=== PATIENT | male | born 1955 | race Caucasian/White ===

== ENCOUNTER 2018-03-19 08:58 | Outpatient (CLI) | payer MEDICAID ==
--- NOTE | 2018-03-19 13:13 | XRAY Report ---
TWO VIEW THORACIC SPINE: 03/19/2018 CLINICAL INDICATION: Back pain. FINDINGS: Frontal and lateral views of the thoracic spine demonstrate a mild anterior wedge compression deformity of T12, which appears chronic, with approximately 30% anterior height loss. Degenerative disk disease is present. Minimal degenerative levoscoliosis is noted. No paraspinal hematoma is seen. IMPRESSION: MILD CHRONIC COMPRESSION FRACTURE OF T12. DEGENERATIVE DISK DISEASE. TD: 03/19/2018 12:39
--- NOTE | 2018-03-19 13:14 | XRAY Report ---
THREE VIEW LUMBAR SPINE: 03/19/2018 CLINICAL INDICATION: Back pain. COMPARISON: 09/06/2012. FINDINGS: AP, lateral, coned down views of the lumbar spine demonstrate progression of degenerative changes, worst at L5-S1. Chronic T12 compression fracture is stable. No new fracture is seen. IMPRESSION: PROGRESSION OF DEGENERATIVE CHANGES. NO EVIDENCE OF INTERVAL FRACTURE. TD: 03/19/2018 12:40
== END 2018-03-19 08:59 | disposition home or self-care (01) ==
LOC: DI.S 08:58
PROVIDERS: ATTEND Nurse Practitioner Family
DX: M54.5 Low back pain (principal); M51.34 Other intervertebral disc degeneration, thoracic region; M48.54XA Collapsed vertebra, not elsewhere classified, thoracic region, initial encounter for fracture
CPT/HCPCS: 72070; 72100

== ENCOUNTER 2018-08-07 09:21 | Outpatient (CLI) | payer MEDICAID ==
--- NOTE | 2018-08-07 11:27 | CARDIAC PROCEDURE NOTE ---
DATE OF SERVICE: 08/07/2018 Physician: Livia Magallanes MD, [facility] INDICATION: Arrhythmia. CARDIAC RISK FACTORS: Male gender, advanced age, alcohol intake. After signing informed consent, the patient exercised on a Paulo protocol treadmill stress test. The patient exercised for 7 minutes and 23 seconds on a Paulo protocol treadmill stress and achieved a peak heart rate of 141 (88% predicted maximal heart rate for age, 9.2 METS. The patient had minimal shortness of breath, no chest pain. RESTING EKG: Normal sinus rhythm, rare PVC, occasional PAC, left anterior fascicular block, poor R-wave progression. PEAK EKG: No ischemic ST or T wave changes. A ventricular couplet, however, was seen at peak. IMPRESSION 1. Good exercise tolerance. 2. Abnormal resting EKG. 3. No ischemic ST or T wave changes by EKG at an adequate level of stress. 4. PACs decreased with exercise, however, a ventricular couplet was seen at peak. 5. No imaging was ordered with this stress test. cc: DARLINE Nunez TD: 08/07/2018 11:13 MTDShari
== END 2018-08-07 09:22 | disposition home or self-care (01) ==
LOC: DI 09:21
PROVIDERS: ATTEND Nurse Practitioner Family
DX: I49.1 Atrial premature depolarization (principal); R94.31 Abnormal electrocardiogram [ECG] [EKG]
CPT/HCPCS: 93017

== ENCOUNTER 2018-10-01 13:18 | Outpatient (CLI) | payer MEDICAID ==
[2018-10-01 18:37] LABS: BASOPHILS % (AUTO) 0.6 %; HGB - HEMOGLOBIN 12.5 g/dL (14.0-18.0); LYMPHOCYTES # (AUTO) 1.2 10^3/uL (1.5-3.5); LYMPHOCYTES % (AUTO) 24.8 %; MEAN CORPUSCULAR HEMOGLOBIN 39.3 pg (27.0-31.0); MEAN CORPUSCULAR HGB CONC 34.3 g/dL (32.0-36.0); MEAN CORPUSCULAR VOLUME 114.7 fL (80.0-94.0); MEAN PLATELET VOLUME 8.3 fL (7.4-11.4); MONOCYTES # (AUTO) 0.6 10^3/uL (0.0-1.0); MONOCYTES % (AUTO) 13.3 %; NEUTROPHILS # (AUTO) 2.9 10^3/uL (1.5-6.6); NEUTROPHILS % (AUTO) 60.3 %; PLT - PLATELET COUNT 153 10^3/uL (130-450); RED BLOOD COUNT 3.17 10^6/uL (4.70-6.10); RED CELL DISTRIBUTION WIDTH 15.2 % (12.0-15.0); WHITE BLOOD COUNT 4.8 x10^3/uL (4.8-10.8)
[2018-10-01 18:44] LABS: ALBUMIN 3.7 g/dL (3.2-5.5); ALBUMIN/GLOBULIN RATIO 1.2 (1.0-2.2); ALKALINE PHOSPHATASE 103 IU/L (42-121); ALT ALANINE AMINOTRANSFERASE 70 IU/L (10-60); AST ASPARTATE AMINOTRANSFERASE 210 IU/L (10-42); BILIRUBIN,TOTAL 0.8 mg/dL (0.2-1.0); BUN - BLOOD UREA NITROGEN 14 mg/dL (6-20); CALCIUM 8.3 mg/dL (8.5-10.3); CARBON DIOXIDE - CO2 23 mmol/L (21-32); CHLORIDE 105 mmol/L (101-111); CHOL/HDL RATIO 1.8 (<5.0); CHOLESTEROL 129 mg/dL; CREATININE 0.8 mg/dL (0.6-1.2); GFR - MDRD 98 (>89); GLUCOSE 113 mg/dL (70-100); HDL CHOLESTEROL 72 mg/dL; LDL CHOLESTEROL,CALCULATED 25 mg/dL; LDL/HDL RATIO 0.3 (<3.6); SODIUM 138 mmol/L (135-145); TOTAL PROTEIN 6.9 g/dL (6.7-8.2); VLDL CHOLESTEROL 32 mg/dL
== END 2018-10-01 13:19 | disposition home or self-care (01) ==
LOC: LAB.F 13:18
PROVIDERS: ATTEND Nurse Practitioner Family
DX: R53.83 Other fatigue (principal); Z13.6 Encounter for screening for cardiovascular disorders; Z12.5 Encounter for screening for malignant neoplasm of prostate
CPT/HCPCS: 36415; 80050; 80061; 83721; 84153

== ENCOUNTER 2019-06-17 14:18 | Outpatient (CLI) | payer MEDICAID ==
[2019-06-17 17:55] LABS: BASOPHILS % (AUTO) 0.7 %; EOSINOPHILS % (AUTO) 0.7 %; HGB - HEMOGLOBIN 12.1 g/dL (14.0-18.0); LYMPHOCYTES # (AUTO) 2.1 10^3/uL (1.5-3.5); LYMPHOCYTES % (AUTO) 38.3 %; MEAN CORPUSCULAR HEMOGLOBIN 37.2 pg (27.0-31.0); MEAN CORPUSCULAR HGB CONC 33.5 g/dL (32.0-36.0); MEAN CORPUSCULAR VOLUME 111.1 fL (80.0-94.0); MEAN PLATELET VOLUME 10.3 fL (7.4-11.4); MONOCYTES # (AUTO) 0.7 10^3/uL (0.0-1.0); MONOCYTES % (AUTO) 12.9 %; NEUTROPHILS # (AUTO) 2.5 10^3/uL (1.5-6.6); NEUTROPHILS % (AUTO) 47.2 %; PLT - PLATELET COUNT 203 10^3/uL (130-450); RED BLOOD COUNT 3.25 10^6/uL (4.70-6.10); RED CELL DISTRIBUTION WIDTH 13.4 % (12.0-15.0); WHITE BLOOD COUNT 5.4 x10^3/uL (4.8-10.8)
[2019-06-17 18:11] LABS: HB2 TOTAL 12.4 g/dL; HEMOGLOBIN A1C 0.44 g/dL; HEMOGLOBIN A1C % 5.4 % (4.6-6.2)
[2019-06-17 18:18] LABS: PSA FREE 0.89 ng/mL (0.16-2.81)
[2019-06-17 18:19] LABS: PSA TOTAL 5.69 ng/mL (0.000-2.000)
[2019-06-17 18:29] LABS: ALBUMIN 4.1 g/dL (3.2-5.5); ALBUMIN/GLOBULIN RATIO 1.1 (1.0-2.2); ALKALINE PHOSPHATASE 65 IU/L (42-121); ALT ALANINE AMINOTRANSFERASE 32 IU/L (10-60); AST ASPARTATE AMINOTRANSFERASE 53 IU/L (10-42); BUN - BLOOD UREA NITROGEN 13 mg/dL (6-20); CALCIUM 8.9 mg/dL (8.5-10.3); CARBON DIOXIDE - CO2 23 mmol/L (21-32); CHLORIDE 103 mmol/L (101-111); CREATININE 0.8 mg/dL (0.6-1.2); GFR - MDRD 98 (>89); GLUCOSE 128 mg/dL (70-100); MAGNESIUM 2.3 mg/dL (1.7-2.8); SODIUM 135 mmol/L (135-145)
[2019-06-17 18:31] LABS: FERRITIN 475.1 ng/mL (23.9-336.2)
[2019-06-17 18:37] LABS: CRP - C-REACTIVE PROTEIN < 1.0 mg/dL (0-1.0)
[2019-06-17 18:50] LABS: PLATELET ESTIMATE, MANUAL NORMAL (130-450,000) (NORMAL); PLATELET MORPHOLOGY NORMAL APPEARANCE (NORMAL); RBC MORPHOLOGY (MULTIPLE) 2+ MACROCYTOSIS (NORMAL)
[2019-06-17 20:08] LABS: RHEUMATOID FACTOR NEGATIVE (Negative)
[2019-06-18 11:44] LABS: URIC ACID 10.5 mg/dL (2.6-7.2)
[2019-06-19 21:05] LABS: ANA SCREEN NEGATIVE (NEGATIVE)
== END 2019-06-17 14:19 | disposition home or self-care (01) ==
LOC: LAB.S 14:18
PROVIDERS: ATTEND Physician Assistant Medical
DX: R94.5 Abnormal results of liver function studies (principal); D64.9 Anemia, unspecified; R73.9 Hyperglycemia, unspecified; R25.2 Cramp and spasm; M10.9 Gout, unspecified; M13.0 Polyarthritis, unspecified; R97.20 Elevated prostate specific antigen [PSA]
CPT/HCPCS: 36415; 80053; 82607; 82728; 83036; 83735; 84153; 84154; 84550; 85025; 85651; 86038; 86140; 86430

== ENCOUNTER 2019-07-20 10:00 | Outpatient (CLI) | payer MEDICAID | END 2019-07-20 10:01 | disposition home or self-care (01) | LOC: LAB.S 10:00 | PROVIDERS: ATTEND Urology | DX: Z12.5 Encounter for screening for malignant neoplasm of prostate (principal); Z87.898 Personal history of other specified conditions | CPT/HCPCS: 36415; 84153 ==

== ENCOUNTER 2020-06-24 14:55 | Outpatient (CLI) | payer MEDICAID ==
[2020-06-24 19:55] LABS: CREATININE 0.7 mg/dL (0.6-1.2)
== END 2020-06-24 14:56 | disposition home or self-care (01) ==
LOC: LAB.S 14:55
PROVIDERS: ATTEND Urology
DX: C61 Malignant neoplasm of prostate (principal)
CPT/HCPCS: 36415; 82565; 84520

== ENCOUNTER 2020-07-01 10:32 | Outpatient (CLI) | payer MEDICAID ==
[2020-07-01 10:54] LABS: CREATININE 0.8 mg/dL (0.6-1.2)
[2020-07-01] MEDS ORDERED: IOVERSOL 320 100 ML VIAL IVP ONE (12:22)
[2020-07-01] MEDS ORDERED: IOVERSOL 320 50 ML VIAL PO ONE (12:22)
--- NOTE | 2020-07-01 13:52 | CT Report ---
PROCEDURE: CHEST W INDICATIONS: PROSTATE CA CONTRAST: IV CONTRAST: Optiray 320 ml: 100 PO CONTRAST: Optiray 320 ml50 TECHNIQUE: After the administration of intravenous contrast, 5 mm thick sections acquired from the pulmonary api jovanny to the posterior costophrenic angles. 7 mm thick coronal MIP reformats were acquired. For radia tion dose reduction, the following was used: automated exposure control, adjustment of mA and/or kV according to patient size. COMPARISON: None. FINDINGS: Image quality: Excellent. Lungs and pleura: No acute air space opacities. No pleural effusions or pneumothorax. Central and peripheral airways are patent and normal in caliber. Mediastinum: Heart size is normal. No pericardial effusion. No mediastinal or hilar adenopathy by size criteria. Thoracic aorta and central pulmonary arteries are normal in size. Distal esophageal t hickening is present. No hiatal hernia. Bones and chest wall: No suspicious bony lesions. No vertebral compression deformities are present w ithin the thoracic spine, appearing chronic. No axillary or supraclavicular adenopathy by size criter ia. Thyroid gland is. Abdomen: Hepatic steatosis is present. Punctate calcifications present within the gallbladder lumen without wall thickening. Otherwise, visualized upper abdominal solid organs appear normal. Upper abd ominal bowel loops are normal in caliber. IMPRESSION: 1. No visualized metastatic disease. Reviewed by: Zuly Cali MD on 07/01/2020 1:51 PM PDT Approved by: Zuly Cali MD on 07/01/2020 1:51 PM PDT Station ID: [id number]
--- NOTE | 2020-07-01 15:00 | CT Report ---
PROCEDURE: Abdomen/Pelvis W INDICATIONS: PROSTATE CA CONTRAST: IV CONTRAST: Optiray 320 ml: 100 PO CONTRAST: Optiray 320 ml50 TECHNIQUE: After the administration of contrast, 5 mm thick sections acquired from the diaphragms to the sym physis. 5 mm thick coronal and sagittal reformats were acquired. For radiation dose reduction, the following was used: automated exposure control, adjustment of mA and/or kV according to patient size . COMPARISON: None. FINDINGS: Image quality: Excellent. ABDOMEN: Chronic emphysematous changes. No acute consolidation or pleural effusion. The heart is normal in siz e. Solid organs: Hepatic steatosis. Spleen unremarkable.. Gallbladder otherwise unremarkable. Biliary system is non dilated. Pancreas enhances normally. No adrenal nodules. Kidneys demonstrate normal size and enhancement, without hydronephrosis. Peritoneum and bowel: Bowel loops demonstrate normal wall thickness and caliber. No free fluid or a ir. Nodes and vessels: No retroperitoneal or mesenteric adenopathy by size criteria. Aorta and inferior vena cava are normal in size. Miscellaneous: No ventral hernias. PELVIS: Genitourinary: Bladder wall thickness is normal. Miscellaneous: No inguinal hernias or adenopathy. Age-indeterminate T12 mild compression fracture. IMPRESSION: Overall, no specific evidence for distant metastatic disease. No lymphadenopathy identified Hepatic steatosis Additional chronic and incidental findings as above. Reviewed by: Abel Juarez MD on 07/01/2020 2:59 PM PDT Approved by: Abel Juarez MD on 07/01/2020 2:59 PM PDT Station ID: [id number]
--- NOTE | 2020-07-01 16:21 | Nuclear Medicine Report ---
PROCEDURE: Bone Whole Body INDICATIONS: PROSTATE CA RADIOPHARMACEUTICAL: 26.7 mCi Tc-99m MDP IV. TECHNIQUE: Delayed whole-body scintigrams were obtained approximately 3-4 hours after intravenous injection of r adiotracer. Anterior and posterior views were acquired from vertex to feet. Additional left and rig ht oblique views of the were obtained. COMPARISON: None . FINDINGS: Small, focal areas of increased radiotracer uptake noted in the left supraorbital ridge an d posterior right eighth and 11th ribs. Relatively subtle radiotracer uptake identified in the should ers bilaterally, the sternoclavicular joints bilaterally, the knees bilaterally, the ankles bilateral ly and the mid feet bilaterally. IMPRESSION: 1. Focal areas of increased radiotracer uptake in the calvarium at the left supraorbital ridge and th e right eighth and 11th ribs suspicious for osseous metastatic disease. 2. Osteoarthritis involving the shoulders, knees, ankles and mid feet. Reviewed by: Nathalie Edward MD, PhD on 07/01/2020 4:20 PM PDT Approved by: Nathalie Edward MD, PhD on 07/01/2020 4:20 PM PDT Station ID: [id number]
== END 2020-07-01 10:33 | disposition home or self-care (01) ==
LOC: LAB 10:32
PROVIDERS: ATTEND Urology
DX: C61 Malignant neoplasm of prostate (principal); K76.0 Fatty (change of) liver, not elsewhere classified; M19.012 Primary osteoarthritis, left shoulder; M19.011 Primary osteoarthritis, right shoulder; M17.0 Bilateral primary osteoarthritis of knee; M19.072 Primary osteoarthritis, left ankle and foot; M19.071 Primary osteoarthritis, right ankle and foot; R93.7 Abnormal findings on diagnostic imaging of other parts of musculoskeletal system; R93.0 Abnormal findings on diagnostic imaging of skull and head, not elsewhere classified
CPT/HCPCS: 36415; 71260; 74177; 78306; 82565; 84520; Q9967

== ENCOUNTER 2021-01-04 13:09 | Outpatient (CLI) | payer MEDICAID | END 2021-01-04 13:10 | disposition critical access hospital (66) | LOC: EMS 13:09 | PROVIDERS: ATTEND Emergency Medicine | DX: R51.9 Headache, unspecified (principal) | CPT/HCPCS: A0425; A0429; A0999 ==

== ENCOUNTER 2021-01-04 13:34 | Emergency (ER) | payer MEDICAID ==
[2021-01-04] MEDS ORDERED: SODIUM CHLORIDE 0.9% 1,000 ML IV STA (13:52)
--- NOTE | 2021-01-04 13:55 | ED Physician Documentation ---
History of Present Illness - Stated complaint Stated Complaint: LETHARGY/WEAKNESS - Chief complaint Chief Complaint: Neuro - History obtained from History obtained from: Patient, EMS - Additonal information Additional information: Patient is brought to the emergency department for chief complaint of fall while in the shower. The patient has recently been undergoing treatment for prostate cancer and states that his first day of radiation was supposed to be today. Patient states that he drinks alcohol, which he reports to be "several shots yesterday evening". Medics report that the told them that the patient had drunk a gallon of alcohol in the form of vodka over the course of last night. Patient denies drinking any alcohol this morning. Medics report that patient smelled strongly of alcohol and they got there. Patient states that his woke him up about an hour prior to arrival to get ready for his radiation appointment. The patient got in the shower when he suddenly began to feel lightheaded and lost his balance, hitting his head on his shower chair. Patient thinks he may have lost consciousness but is not sure. Patient denies any focal weakness or numbness or tingling. He states that initially, he could not get up, and it was at this point that his called EMS. Medics report the patient has had some repetitive questioning while in route, but otherwise his seem to be neurologically intact. Patient states he has some pain over his back, which she indicates to be over his lower T-spine. No other complaints at this time. Patient states he is not known to have any metastases to his spine. Review of Systems Ten Systems: 10 systems reviewed and negative Constitutional: reports: Reviewed and negative Eyes: reports: Reviewed and negative Ears: reports: Reviewed and negative Nose: reports: Reviewed and negative Throat: reports: Reviewed and negative Cardiac: reports: Reviewed and negative Respiratory: reports: Reviewed and negative GI: reports: Reviewed and negative : reports: Reviewed and negative Skin: reports: Reviewed and negative Musculoskeletal: reports: Reviewed and negative Neurologic: reports: Generalized weakness, Head injury, LOC Psychiatric: reports: Reviewed and negative Endocrine: reports: Reviewed and negative Immunocompromised: reports: Reviewed and negative PD PAST MEDICAL HISTORY - Past Medical History Cardiovascular: Hypertension Respiratory: None Endocrine/Autoimmune: None GI: None : None HEENT: None Psych: None Musculoskeletal: Gout Derm: None - Past Surgical History Ortho: Knee replacement, Other - Present Medications Home Medications: Ambulatory Orders Medication Instructions Recorded Confirmed Naproxen [Aleve] 250 mg PO 02/23/14 08/30/14 allopurinoL [Allopurinol] 1 tab DAILY 08/30/14 08/30/14 - Allergies Allergies/Adverse Reactions: Allergies Allergy/AdvReac Type Severity Reaction Status Date / Time codeine AdvReac Severe Emesis Verified 01/04/21 13:44 PD ED PE NORMAL - Vitals Vital signs reviewed: Yes - General General: Alert and oriented X 3, No acute distress, Other (Patient smells strongly of alcohol, but is alert and coherent.) - HEENT HEENT: Atraumatic, PERRL, EOMI, Moist mucous membranes - Neck Neck: Supple, no meningeal sign, No bony TTP - Cardiac Cardiac: RRR, No murmur, Strong equal pulses - Respiratory Respiratory: No respiratory distress, Clear bilaterally - Abdomen Abdomen: Soft, Non tender, Non distended - Back Back: No CVA TTP, Other (Tenderness to palpation over the approximately T9-10 area. Small abrasion noted over the same area with no swelling, step-off, or contusion.) - Derm Derm: Normal color, Warm and dry, No rash, Other (Abrasion on back, as noted above.) - Extremities Extremities: No deformity, No tenderness to palpate, Normal ROM s pain, No edema, No calf tenderness / cord - Neuro Neuro: Alert and oriented X 3, brush operator 2-12 intact, No motor deficit, No sensory deficit, Normal speech, Other (The patient occasionally repeats questions and statements, but overall, answers questions coherently and appropriately. He is not grossly ataxic.) - Psych Psych: Normal mood, Normal affect Results - Vitals Vitals: Vital Signs - 24 hr 01/04/21 13:35 Temperature 36.7 C Heart Rate 98 Respiratory 18 Rate Blood Pressure 148/82 H O2 Saturation 97 Oxygen O2 Source Room air - Labs Labs: Laboratory Tests 01/04/21 14:21 Ethyl Alcohol 262.1 - Rads (name of study) CT head Radiology: Final report received, EMP read indepedently, See rad report (nad) Thoracic spine XR Radiology: Final report received, EMP read indepedently, See rad report (Old, chronic compression fractures. Otherwise negative.) PD MEDICAL DECISION MAKING - ED course Complexity details: reviewed results, re-evaluated patient, considered differential, d/w patient ED course: The patient overall appeared fairly well in an acute sense, and had minimal complaints. He smelled strongly of alcohol, and I suspected that he had been drinking In a small amount of time before coming to the emergency department. IV had been placed by EMS, and patient was given a liter of 0.9 normal saline. He was sent for CT skin of the head and x-ray of the thoracic spine. EtOH level was checkedAnd found to be 262. CT and x-ray were both unremarkable. I felt the patient was stable for discharge home, and I did discuss with him that he will need to call his oncology office to reschedule his radiation soon as possible. We have discussed the need to cut back on alcohol intake. We have discussed the usual indications for return. Departure - Departure Disposition: 01 Home, Self Care Clinical Impression: Alcohol intoxication Qualifiers: Complication of substance-induced condition: uncomplicated Qualified Code(s): F10.920 - Alcohol use, unspecified with intoxication, uncomplicated Fall Qualifiers: Encounter type: initial encounter Qualified Code(s): W19.XXXA - Unspecified fall, initial encounter Condition: Stable Instructions: ED Alcohol Intoxication, ED Fall Dizziness Weakn Balance Comments: Your head CT and back x-ray look good. Your alcohol level was quite high at 262. We have given you IV fluids to help make sure that you are hydrated and not dizzy, and also to help flush the alcohol out of your system. Please call your oncologist's office as soon as possible to reschedule your radiation appointment.`
--- NOTE | 2021-01-04 14:21 | CT Report ---
PROCEDURE: HEAD WO INDICATIONS: Head injury TECHNIQUE: Noncontrast 4.5 mm thick angled axial sections acquired from the foramen magnum to the vertex. For r adiation dose reduction, the following was used: automated exposure control, adjustment of mA and/or kV according to patient size. COMPARISON: None. FINDINGS: Image quality: Excellent. CSF spaces: Basal cisterns are patent. No extra-axial fluid collections. Ventricles are normal in size and shape. Brain: No midline shift. No intracranial masses or hemorrhage. [place]-white matter interface is norm al. Skull and face: Calvarium and visualized facial bones are intact, without suspicious lesions. Sinuses: Visualized sinuses and mastoids are clear. IMPRESSION: No acute intracranial abnormality. Reviewed by: Marin Brohters MD on 01/04/2021 2:19 PM PDT Approved by: Marin Brothers MD on 01/04/2021 2:19 PM PDT Station ID: [id number]
--- NOTE | 2021-01-04 14:39 | XRAY Report ---
PROCEDURE: Thoracic Spine 2 View INDICATIONS: fall/pain TECHNIQUE: 3 views of the thoracic spine were acquired. COMPARISON: None. FINDINGS: Bones: No definite acute fractures or dislocations. There is mild chronic appearing wedging at mult iple levels within the mid/lower thoracic spine. Multilevel endplate osteophytes are present. No susp icious bony lesions. Visualized ribs are intact. Soft tissues: No paravertebral stripe thickening. IMPRESSION: Multilevel mild chronic appearing compression fractures within the mid/lower thoracic spine. No defin ite acute fracture. No osseous lesion. If symptoms and/or clinical suspicion for pathology continue, further assessment with repeat plain films, or advanced imaging (e.g., CT, MRI, or bone scan) is beatrice mmended for further assessment. Reviewed by: Ivette Leger MD on 01/04/2021 2:38 PM PDT Approved by: Ivette Leger MD on 01/04/2021 2:38 PM PDT Station ID: [id number]
[2021-01-04 15:01] VITALS: BP 138/90
== END 2021-01-04 15:26 | disposition home or self-care (01) ==
LOC: EDUNIT# → ED 13:34
DX: F10.920 Alcohol use, unspecified with intoxication, uncomplicated (principal); Y90.8 Blood alcohol level of 240 mg/100 ml or more; S20.419A Abrasion of unspecified back wall of thorax, initial encounter; M48.54XA Collapsed vertebra, not elsewhere classified, thoracic region, initial encounter for fracture; Y93.E1 Activity, personal bathing and showering; W18.2XXA Fall in (into) shower or empty bathtub, initial encounter; Y92.002 Bathroom of unspecified non-institutional (private) residence as the place of occurrence of the external cause; C61 Malignant neoplasm of prostate; I10 Essential (primary) hypertension
CPT/HCPCS: 36415; 80320; 96360; 99283

== ENCOUNTER 2021-02-10 20:00 | Emergency (ER) | payer MEDICAID ==
--- OUTSIDE RECORDS SUMMARY | 2021-02-10 20:03 | EXTERNAL MEDICAL SUMMARY RPT | Continuity of Care Document ---
:1955 Demographics Phone Unavailable Preferred Language Unknown Marital Status Unknown Buddhist Affiliation Unknown Race Unknown Ethnic Group Unknown Author Organization [facility] Address [address] [place] [address] Phone Social History date description facility [phone]
--- OUTSIDE RECORDS SUMMARY | 2021-02-10 20:13 | EXTERNAL MEDICAL SUMMARY RPT | Continuity of Care Document ---
:1955 Demographics Phone Unavailable Preferred Language Unknown Marital Status Unknown Yazidism Affiliation Unknown Race Unknown Ethnic Group Unknown Author Organization [facility] Address [address] [id number] Phone Social History date description facility [phone]
[2021-02-10 20:31] LABS: BASOPHILS % (AUTO) 0.6 %; EOSINOPHILS % (AUTO) 0.5 %; HCT - HEMATOCRIT 32.1 % (42.0-52.0); HGB - HEMOGLOBIN 10.9 g/dL (14.0-18.0); LYMPHOCYTES # (AUTO) 1.5 10^3/uL (1.5-3.5); LYMPHOCYTES % (AUTO) 22.8 %; MEAN CORPUSCULAR HEMOGLOBIN 38.1 pg (27.0-31.0); MEAN CORPUSCULAR VOLUME 112.2 fL (80.0-94.0); MONOCYTES # (AUTO) 0.9 10^3/uL (0.0-1.0); MONOCYTES % (AUTO) 13.8 %; NEUTROPHILS % (AUTO) 62.1 %; PLT - PLATELET COUNT 161 10^3/uL (130-450); RED BLOOD COUNT 2.86 10^6/uL (4.70-6.10); WHITE BLOOD COUNT 6.4 x10^3/uL (4.8-10.8)
[2021-02-10 20:34] LABS: INR 1.2 (0.8-1.2); PT - PROTHROMBIN TIME 12.8 secs (9.9-12.6)
[2021-02-10 20:44] LABS: ALBUMIN 3.1 g/dL (3.2-5.5); ALBUMIN/GLOBULIN RATIO 0.8 (1.0-2.2); BILIRUBIN,TOTAL 0.9 mg/dL (0.2-1.0); CALCIUM 8.2 mg/dL (8.5-10.3); CREATININE 0.6 mg/dL (0.6-1.2); MAGNESIUM 1.3 mg/dL (1.7-2.8); POTASSIUM 3.2 mmol/L (3.5-5.0); TOTAL PROTEIN 6.8 g/dL (6.7-8.2)
--- NOTE | 2021-02-10 21:05 | ED Physician Documentation ---
History of Present Illness - Stated complaint Stated Complaint: DIZZINESS - Chief complaint Chief Complaint: Neuro - History obtained from History obtained from: Patient - History of Present Illness Timing: How many weeks ago (1) Pain level now: 0 Improved by: rest Worsened by: turning head, lying down (the action of lying down) Associated symptoms: nausea, vomiting - Additonal information Additional information: c/o 1 week of dizziness with sensation of room spinning. distinctly worse with certain movements such as turning his head to either side or the action of lying down, improved with rest/lying still. When he is dizzy he sometimes has nausea and vomiting as well. He was evaluated in outpatient clinic earlier today for this but is sent to ED due to new-onset atrial fibrillation on their EKG. Patient was evaluated 01/04 in this ED after he had a fall with head injury but was discharged after tests including CT head. He denies chest pain, dyspnea, palpitations. Review of Systems Constitutional: reports: Reviewed and negative Eyes: denies: Loss of vision, Decreased vision, Photophobia Ears: denies: Loss of hearing, Ear pain, Drainage/discharge, Tinnitus/ringing Cardiac: reports: Reviewed and negative Respiratory: reports: Reviewed and negative GI: reports: Nausea (episodic, but not at this time), Vomiting (episodic, not currently experiencing n/v). denies: Abdominal Pain Musculoskeletal: reports: Neck pain (occasional pain along right trapezial ridge over past 1-2 weeks). denies: Back pain Neurologic: reports: Head injury (last month (evaluated in this ED 01/04, same day as injury)). denies: Generalized weakness, Focal weakness, Numbness, Headache PD PAST MEDICAL HISTORY - Past Medical History Past Medical History: Yes Cardiovascular: Hypertension Respiratory: None Endocrine/Autoimmune: None GI: None : None HEENT: None Psych: Anxiety Musculoskeletal: Gout Derm: None - Past Surgical History Past Surgical History: Yes Ortho: Knee replacement, Other - Present Medications Home Medications: Ambulatory Orders Medication Instructions Recorded Confirmed allopurinoL [Allopurinol] 1 tab DAILY 08/30/14 02/10/21 Meclizine [Antivert] 25 mg PO Q6H PRN #20 tablet 02/10/21 diazePAM [Valium] 5 mg PO TID PRN #15 tablet 02/10/21 - Allergies Allergies/Adverse Reactions: Allergies Allergy/AdvReac Type Severity Reaction Status Date / Time codeine AdvReac Severe Emesis Verified 01/04/21 13:44 - Social History Does the pt smoke?: No Smoking Status: Never smoker Does the pt drink ETOH?: Yes ETOH Use: Liquor Does the pt have substance abuse?: Yes Substance Use and Type: Marijuana, CBD oil / Products - Immunizations Immunizations are current?: Yes - POLST Patient has POLST: No PD ED PE NORMAL - Vitals Vital signs reviewed: Yes - General General: Alert and oriented X 3, No acute distress, Well developed/nourished - HEENT HEENT: PERRL, EOMI, Moist mucous membranes - Neck Neck: Supple, no meningeal sign, No bony TTP - Cardiac Cardiac: No murmur - Respiratory Respiratory: No respiratory distress, Clear bilaterally - Abdomen Abdomen: Soft, Non tender - Neuro Neuro: Alert and oriented X 3, monitor car operator 2-12 intact, No motor deficit, No sensory deficit, Normal speech Eye Opening: Spontaneous Motor: Obeys Commands Verbal: Oriented GCS Score: 15 PD ED PE EXPANDED - Cardiac Cardiac: Regular Rate, Abnormal Rhythm Results - Vitals Vitals: Vital Signs - 24 hr 02/10/21 02/10/21 02/10/21 20:02 20:27 22:15 Temperature 36.0 C L 36.4 C L Heart Rate 67 99 97 Respiratory 18 16 16 Rate Blood Pressure 142/81 H 139/76 H 126/69 O2 Saturation 99 100 97 Oxygen O2 Source Room air - EKG (time done) No standard instances Rate: Rate (enter#) (84) Rhythm: Atrial fibrillation [place]: LAD, Anterior hemiblock Ischemia: Normal ST segments, Q waves (inferior leads) Compare to prior EKG: Other (inferior Q waves, LAFB, LAD all noted on previous EKG) - Labs Labs: Laboratory Tests 02/10/21 02/10/21 02/10/21 20:23 20:23 20:23 WBC 6.4 RBC 2.86 L Hgb 10.9 L Hct 32.1 L MCV 112.2 H MCH 38.1 H MCHC 34.0 RDW 14.0 Plt Count 161 MPV 9.0 Neut # (Auto) 4.0 Lymph # (Auto) 1.5 [place] # (Auto) 0.9 Eos # (Auto) 0.0 Baso # (Auto) 0.0 Absolute Nucleated RBC 0.00 Nucleated RBC % 0.0 WBC Morphology NORMAL APPEARANCE Platelet Estimate NORMAL (130-450,000) Platelet Morphology NORMAL APPEARANCE RBC Morph Micro Appear 2+ MACROCYTOSIS PT 12.8 H INR 1.2 Sodium 139 Potassium 3.2 L Chloride 103 Carbon Dioxide 23 Anion Gap 13.0 BUN 8 Creatinine 0.6 Estimated GFR (MDRD) 136 Glucose 130 H Calcium 8.2 L Magnesium 1.3 L Total Bilirubin 0.9 AST 72 H ALT 34 Alkaline Phosphatase 134 H Troponin I High Sens B-Natriuretic Peptide Total Protein 6.8 Albumin 3.1 L Globulin 3.7 Albumin/Globulin Ratio 0.8 L Lipase 18 L TSH 02/10/21 02/10/21 02/10/21 20:23 20:23 20:23 WBC RBC Hgb Hct MCV MCH MCHC RDW Plt Count MPV Neut # (Auto) Lymph # (Auto) [place] # (Auto) Eos # (Auto) Baso # (Auto) Absolute Nucleated RBC Nucleated RBC % WBC Morphology Platelet Estimate Platelet Morphology RBC Morph Micro Appear PT INR Sodium Potassium Chloride Carbon Dioxide Anion Gap BUN Creatinine Estimated GFR (MDRD) Glucose Calcium Magnesium Total Bilirubin AST ALT Alkaline Phosphatase Troponin I High Sens 6.0 B-Natriuretic Peptide 280 H Total Protein Albumin Globulin Albumin/Globulin Ratio Lipase TSH 4.35 PD MEDICAL DECISION MAKING - ED course Complexity details: reviewed old records, reviewed results, re-evaluated patient, considered differential, d/w patient ED course: patient's description of symptoms strongly suggestive of peripheral, positional vertigo. He has no focal neurological complaints nor findings. The EKG faxed from the outpatient clinic (performed this evening) is similar in appearance to lazaro's ED EKG; both rhythms are interpreted by EKG algorithm as sinus tachycardia with PACs but I would interpret both EKGs as consistent with atrial fibrillation. While in ED, I note that on the monitor, he appears to more frequently be in NSR with PACs with some periods that appear to be atrial fibrillation. His blood tests lazaro are reassuring including normal high sensitivity troponin. His [id number] score is zero (triage note indicates h/o hypertension but patient denies any medical history except for gout and prostate CA; this includes when I specifically ask him if he has been diagnosed with high blood pressure/hypertension). Thus, with [id number] score of zero, anticoagulation would not be recommended even if his rhythm is atrial fibrillation. I discussed this scoring system and the recommendation against anticoagulants with patient and family (at bedside) and they agree with this approach. He is given meclizine for his vertigo with rx for same transmitted to his pharmacy; I also provided him an rx for valium to be used for vertigo that does not respond to the meclizine. He is instructed to return if worse in any way, and to follow up with his primary care provider for reevaluation next week. Departure - Departure Disposition: Home, Self Care Clinical Impression: Vertigo, Dysrhythmia Condition: Good Instructions: ED Dysrhythmia Unspecified, ED Vertigo Unspecified Follow-Up: ECHO RAMOS PA-C [Primary Care Provider] - (Contact your primary care provider Saturday to arrange for next available appointment) Prescriptions: Meclizine [Antivert] 25 mg PO Q6H PRN #20 tablet PRN Reason: Vertigo diazePAM [Valium] 5 mg PO TID PRN #15 tablet PRN Reason: Vertigo Comments: A [facility] for [facility] to [facility] in [place]. If this medication does not control your dizziness, you can then try the other prescription provided, which is diazepam (valium; this cannot be transmitted to the pharmacy and thus a paper prescription is provided to you [facility]). Discharge Date/Time: 02/10/21 22:32
[2021-02-10] MEDS ORDERED: MECLIZINE 12.5 MG TABLET PO STA (21:29)
[2021-02-10 21:31] LABS: PLATELET ESTIMATE, MANUAL NORMAL (130-450,000) (NORMAL); PLATELET MORPHOLOGY NORMAL APPEARANCE (NORMAL)
[2021-02-10 21:32] LABS: WBC MORPHOLOGY (MULTIPLE) NORMAL APPEARANCE (NORMAL)
[2021-02-10 22:16] VITALS: BP 126/69
== END 2021-02-10 22:32 | disposition home or self-care (01) ==
LOC: ED 20:00
DX: R42 Dizziness and giddiness (principal); I48.91 Unspecified atrial fibrillation; I49.1 Atrial premature depolarization; I44.7 Left bundle-branch block, unspecified; I10 Essential (primary) hypertension
CPT/HCPCS: 36415; 80053; 83690; 83735; 83880; 84443; 84484; 85025; 85610; 93005; 99284; A9270

== ENCOUNTER 2021-08-16 12:55 | Outpatient (CLI) | payer MEDICAID | END 2021-08-16 12:56 | disposition home or self-care (01) | LOC: LAB.S 12:55 | PROVIDERS: ATTEND Specialist | DX: C61 Malignant neoplasm of prostate (principal) | CPT/HCPCS: 36415; 84153 ==

== ENCOUNTER 2021-10-01 17:33 | Outpatient (CLI) | payer MEDICAID | END 2021-10-01 17:34 | disposition critical access hospital (66) | LOC: EMS 17:33 | DX: R53.1 Weakness (principal); R62.7 Adult failure to thrive | CPT/HCPCS: A0425; A0429; A0999 ==

== ENCOUNTER 2021-10-01 18:00 | Inpatient (IN) | payer MEDICAID ==
[2021-10-01] MEDS ORDERED: HYDROmorphone 1 MG/ML CARPUJECT IVP STA (18:36)
[2021-10-01 18:41] LABS: BASOPHILS % (AUTO) 0.3 %; EOSINOPHILS % (AUTO) 0.2 %; HCT - HEMATOCRIT 36.6 % (42.0-52.0); HGB - HEMOGLOBIN 12.4 g/dL (14.0-18.0); LYMPHOCYTES % (AUTO) 7.8 %; MEAN CORPUSCULAR HGB CONC 33.9 g/dL (32.0-36.0); MEAN CORPUSCULAR VOLUME 109.3 fL (80.0-94.0); MEAN PLATELET VOLUME 9.2 fL (7.4-11.4); MONOCYTES # (AUTO) 1.2 10^3/uL (0.0-1.0); MONOCYTES % (AUTO) 9.3 %; NEUTROPHILS # (AUTO) 10.9 10^3/uL (1.5-6.6); NEUTROPHILS % (AUTO) 81.9 %; PLT - PLATELET COUNT 200 10^3/uL (130-450); RED BLOOD COUNT 3.35 10^6/uL (4.70-6.10); RED CELL DISTRIBUTION WIDTH 13.4 % (12.0-15.0); WHITE BLOOD COUNT 13.3 x10^3/uL (4.8-10.8)
[2021-10-01] MEDS ORDERED: IOPAMIDOL-300 100 ML VIAL ONE (18:51)
--- NOTE | 2021-10-01 18:53 | ED Physician Documentation ---
History of Present Illness - Stated complaint Stated Complaint: WEAKNESS - Chief complaint Chief Complaint: General - History obtained from History obtained from: Patient, Other (Tried calling the , there was no answer and it did not go to voicemail, just kept ringing) - Additonal information Additional information: 65-year-old gentleman with prostate cancer presents with generalized weakness, j oint pain, both knees and the right ankle, chest and back pain after falling twice and hitting his chest and back. He also has dry mouth, shortness of breath and feeling like his heart is beating abnormally fast when he walks. Review of Systems Ten Systems: 10 systems reviewed and negative Constitutional: reports: Fatigue. denies: Fever, Chills Cardiac: reports: Chest pain / pressure. denies: Palpitations Respiratory: reports: Dyspnea. denies: Cough PD PAST MEDICAL HISTORY - Past Medical History Cardiovascular: Hypertension Respiratory: None Endocrine/Autoimmune: None GI: None : None HEENT: None Psych: Anxiety Musculoskeletal: Gout Derm: None - Past Surgical History Past Surgical History: Yes Ortho: Knee replacement, Other - Present Medications Home Medications: Ambulatory Orders Medication Instructions Recorded Confirmed allopurinoL [Allopurinol] 1 tab DAILY 08/30/14 02/10/21 Meclizine [Antivert] 25 mg PO Q6H PRN #20 tablet 02/10/21 diazePAM [Valium] 5 mg PO TID PRN #15 tablet 02/10/21 - Allergies Allergies/Adverse Reactions: Allergies Allergy/AdvReac Type Severity Reaction Status Date / Time codeine AdvReac Severe Emesis Verified 10/01/21 18:19 - Social History Does the pt smoke?: No Smoking Status: Never smoker Does the pt drink ETOH?: Yes Does the pt have substance abuse?: Yes - Immunizations Immunizations are current?: Yes - POLST Patient has POLST: No PD ED PE NORMAL - Vitals Vital signs reviewed: Yes - General General: Alert and oriented X 3, Other (He is cachectic with very dry mouth) - Neck Neck: Supple, no meningeal sign, No bony TTP - Cardiac Cardiac: RRR, No murmur - Respiratory Respiratory: No respiratory distress, Other (diminished R side) - Abdomen Abdomen: Normal bowel sounds, Soft, Non tender, Other (Slight distention) - Back Back: No CVA TTP, No spinal TTP - Derm Derm: Normal color, Warm and dry - Extremities Extremities: Other (Effusions of both knees, no redness of either knee or the right ankle.) - Neuro Neuro: Alert and oriented X 3, No motor deficit, No sensory deficit, Normal speech - Psych Psych: Normal mood, Normal affect Results - Vitals Vitals: Vital Signs - 24 hr 10/01/21 10/01/21 10/01/21 17:59 18:21 19:11 Temperature 36.7 C Heart Rate 104 H 73 108 H Respiratory 20 14 16 Rate Blood Pressure 130/80 155/64 H 138/78 H O2 Saturation 93 93 10/01/21 10/01/21 10/01/21 21:10 21:15 21:20 Temperature Heart Rate 106 H 109 H 110 H Respiratory 18 20 19 Rate Blood Pressure 140/101 H 155/87 H 157/99 H O2 Saturation 97 97 97 10/01/21 21:30 Temperature Heart Rate 111 H Respiratory 20 Rate Blood Pressure 135/90 H O2 Saturation 95 Oxygen O2 Source Room air - EKG (time done) 1913 Rate: Rate (enter#) (106) Rhythm: Sinus tachycardia [place]: Normal Intervals: Normal ID, Prolonged QT QRS: Normal Ischemia: Non specific changes - Labs Labs: Laboratory Tests 10/01/21 10/01/21 10/01/21 18:35 18:35 18:35 WBC 13.3 H RBC 3.35 L Hgb 12.4 L Hct 36.6 L MCV 109.3 H MCH 37.0 H MCHC 33.9 RDW 13.4 Plt Count 200 MPV 9.2 Neut # (Auto) 10.9 H Lymph # (Auto) 1.0 L [place] # (Auto) 1.2 H Eos # (Auto) 0.0 Baso # (Auto) 0.0 Absolute Nucleated RBC 0.00 Nucleated RBC % 0.0 ESR 59 H PT INR Sodium 133 L Potassium 2.8 L Chloride 93 L Carbon Dioxide 29 Anion Gap 11.0 BUN 8 Creatinine 0.7 Estimated GFR (MDRD) 114 Glucose 132 H Calcium 8.3 L Magnesium Total Bilirubin 2.5 H AST 30 ALT < 10 L Alkaline Phosphatase 128 H Lactate Dehydrogenase Troponin I High Sens C-Reactive Protein 8.6 H Total Protein 7.6 Albumin 2.3 L Globulin 5.3 H Albumin/Globulin Ratio 0.4 L Lipase 16 L Fluid Source Fluid Color Fluid Clarity Fluid WBC Fluid RBC Nasal Adenovirus (PCR) Nasal B. parapertussis DNA (PCR) Nasal Coronavir 229E PCR Nasal Coronavir HKU1 PCR Nasal Coronavir NL63 PCR Nasal Coronavir OC43 PCR Nasal Enterovir/Rhinovir PCR Nasal Influenza B PCR Nasal Influenza A PCR Nasal Parainfluen 1 PCR Nasal Parainfluen 2 PCR Nasal Parainfluen 3 PCR Nasal Parainfluen 4 PCR Nasal RSV (PCR) Nasal B.pertussis DNA PCR Nasal C.pneumoniae (PCR) Caesar Human Metapneumo PCR Nasal M.pneumoniae (PCR) Nasal SARS-CoV-2 (PCR) Ethyl Alcohol 10/01/21 10/01/21 10/01/21 18:35 18:35 18:35 WBC RBC Hgb Hct MCV MCH MCHC RDW Plt Count MPV Neut # (Auto) Lymph # (Auto) [place] # (Auto) Eos # (Auto) Baso # (Auto) Absolute Nucleated RBC Nucleated RBC % ESR PT INR Sodium Potassium Chloride Carbon Dioxide Anion Gap BUN Creatinine Estimated GFR (MDRD) Glucose Calcium Magnesium 1.7 Total Bilirubin AST ALT Alkaline Phosphatase Lactate Dehydrogenase Troponin I High Sens 12.6 C-Reactive Protein Total Protein Albumin Globulin Albumin/Globulin Ratio Lipase Fluid Source Fluid Color Fluid Clarity Fluid WBC Fluid RBC Nasal Adenovirus (PCR) Nasal B. parapertussis DNA (PCR) Nasal Coronavir 229E PCR Nasal Coronavir HKU1 PCR Nasal Coronavir NL63 PCR Nasal Coronavir OC43 PCR Nasal Enterovir/Rhinovir PCR Nasal Influenza B PCR Nasal Influenza A PCR Nasal Parainfluen 1 PCR Nasal Parainfluen 2 PCR Nasal Parainfluen 3 PCR Nasal Parainfluen 4 PCR Nasal RSV (PCR) Nasal B.pertussis DNA PCR Nasal C.pneumoniae (PCR) Caesar Human Metapneumo PCR Nasal M.pneumoniae (PCR) Nasal SARS-CoV-2 (PCR) Ethyl Alcohol < 5.0 10/01/21 10/01/21 10/01/21 18:35 20:18 20:43 WBC RBC Hgb Hct MCV MCH MCHC RDW Plt Count MPV Neut # (Auto) Lymph # (Auto) [place] # (Auto) Eos # (Auto) Baso # (Auto) Absolute Nucleated RBC Nucleated RBC % ESR PT 16.3 H INR 1.5 H Sodium Potassium Chloride Carbon Dioxide Anion Gap BUN Creatinine Estimated GFR (MDRD) Glucose Calcium Magnesium Total Bilirubin AST ALT Alkaline Phosphatase Lactate Dehydrogenase 118 Troponin I High Sens C-Reactive Protein Total Protein Albumin Globulin Albumin/Globulin Ratio Lipase Fluid Source Fluid Color Fluid Clarity Fluid WBC Fluid RBC Nasal Adenovirus (PCR) NOT DETECTED Nasal B. parapertussis DNA (PCR) NOT DETECTED Nasal Coronavir 229E PCR NOT DETECTED Nasal Coronavir HKU1 PCR NOT DETECTED Nasal Coronavir NL63 PCR NOT DETECTED Nasal Coronavir OC43 PCR NOT DETECTED Nasal Enterovir/Rhinovir PCR NOT DETECTED Nasal Influenza B PCR NOT DETECTED Nasal Influenza A PCR NOT DETECTED Nasal Parainfluen 1 PCR NOT DETECTED Nasal Parainfluen 2 PCR NOT DETECTED Nasal Parainfluen 3 PCR NOT DETECTED Nasal Parainfluen 4 PCR NOT DETECTED Nasal RSV (PCR) NOT DETECTED Nasal B.pertussis DNA PCR NOT DETECTED Nasal C.pneumoniae (PCR) NOT DETECTED Caesar Human Metapneumo PCR NOT DETECTED Nasal M.pneumoniae (PCR) NOT DETECTED Nasal SARS-CoV-2 (PCR) NOT DETECTED Ethyl Alcohol 10/01/21 21:20 WBC RBC Hgb Hct MCV MCH MCHC RDW Plt Count MPV Neut # (Auto) Lymph # (Auto) [place] # (Auto) Eos # (Auto) Baso # (Auto) Absolute Nucleated RBC Nucleated RBC % ESR PT INR Sodium Potassium Chloride Carbon Dioxide Anion Gap BUN Creatinine Estimated GFR (MDRD) Glucose Calcium Magnesium Total Bilirubin AST ALT Alkaline Phosphatase Lactate Dehydrogenase Troponin I High Sens C-Reactive Protein Total Protein Albumin Globulin Albumin/Globulin Ratio Lipase Fluid Source PLEURAL Fluid Color YELLOW Fluid Clarity HAZY Fluid WBC 282 Fluid RBC 2000 Nasal Adenovirus (PCR) Nasal B. parapertussis DNA (PCR) Nasal Coronavir 229E PCR Nasal Coronavir HKU1 PCR Nasal Coronavir NL63 PCR Nasal Coronavir OC43 PCR Nasal Enterovir/Rhinovir PCR Nasal Influenza B PCR Nasal Influenza A PCR Nasal Parainfluen 1 PCR Nasal Parainfluen 2 PCR Nasal Parainfluen 3 PCR Nasal Parainfluen 4 PCR Nasal RSV (PCR) Nasal B.pertussis DNA PCR Nasal C.pneumoniae (PCR) Caesar Human Metapneumo PCR Nasal M.pneumoniae (PCR) Nasal SARS-CoV-2 (PCR) Ethyl Alcohol - Rads (name of study) X-rays of both knees and the right ankle are normal Radiology: EMP read contemporaneously Procedures - Chest Tube (location) right 4th middle axillary line Chest tube preparation: Consent obtained, Time out completed, Sterile prep and drape Chest tube location: Right, Mid axillary line Chest tube anesthesia: Lidocaine (10ml) Chest tube size: 30 Chest tube return: Other (4L fluid mostly clear yellow. Not pus) Chest tube after care: Sutured, Confirmed with xray, Pt tolerated well - Procedural sedation Sedation prep: Informed consent, ASA 2 - mild disease Sedation Medications: ketamine (100mg ivp) Mallampati classification: I Patient status during sedation: Responds to verbal Sedation recovery: Recovered uneventfully Time in sedation (Minutes): 15 PD MEDICAL DECISION MAKING - ED course ED course: Initially unable to get a hold of but we did talk, best phone is [phone]. 65-year-old gentleman presents with multiple complaints including polyarthralgia mostly the knees and the right ankle. No signs of infection there. He appears chronically ill and cachectic and has a history of prostate cancer. He hit his chest and was short of breath and was noted on CT angiography to have a massive right pleural effusion with potentially some mediastinal shift as well. Chest tube was placed and greater than 4 L of output was obtained which was sent to the lab for pH, glucose, LDH, culture, cell count, creatinine, and cytology. The fluid was for the most part clear though, definitely not an empyema. As such Dr. Kaufmansef will admit. And I also consulted Dr. Bhatt for chest tube management. Departure - Departure Disposition: 66 [facility] DC/Xfer Clinical Impression: Weakness, Pleural effusion, Knee pain, left, Knee pain, right anterior, Ankle pain, right, Prostate cancer Condition: Serious
[2021-10-01 19:09] LABS: ALBUMIN 2.3 g/dL (3.2-5.5); ALBUMIN/GLOBULIN RATIO 0.4 (1.0-2.2); ALKALINE PHOSPHATASE 128 IU/L (42-121); ALT ALANINE AMINOTRANSFERASE < 10 IU/L (10-60); AST ASPARTATE AMINOTRANSFERASE 30 IU/L (10-42); BILIRUBIN,TOTAL 2.5 mg/dL (0.2-1.0); BUN - BLOOD UREA NITROGEN 8 mg/dL (6-20); CALCIUM 8.3 mg/dL (8.5-10.3); CARBON DIOXIDE - CO2 29 mmol/L (21-32); CHLORIDE 93 mmol/L (101-111); CREATININE 0.7 mg/dL (0.6-1.2); CRP - C-REACTIVE PROTEIN 8.6 mg/dL (0-1.0); GFR - MDRD 114 (>89); GLUCOSE 132 mg/dL (70-100); LIPASE 16 U/L (22-51); POTASSIUM 2.8 mmol/L (3.5-5.0); SODIUM 133 mmol/L (135-145); TOTAL PROTEIN 7.6 g/dL (6.7-8.2)
[2021-10-01] MEDS ORDERED: POTASSIUM CHLOR 10 MEQ/100 ML 10 MEQ/100 ML BAG IV ONE (19:11)
--- NOTE | 2021-10-01 19:30 | XRAY Report ---
PROCEDURE: Ankle 3 View RT INDICATIONS: Trauma TECHNIQUE: 3 views of the ankle were acquired. COMPARISON: None FINDINGS: No fracture or dislocation. No ankle joint effusion. Regional soft tissues demonstrate no acute findi ng. IMPRESSION: No acute finding. Reviewed by: Marin Brothers MD on 10/01/2021 7:29 PM PST Approved by: Marin Brothers MD on 10/01/2021 7:29 PM PST Station ID: [id number]
--- NOTE | 2021-10-01 19:31 | XRAY Report ---
PROCEDURE: Knee 3 View BILAT INDICATIONS: Bilateral knee pain TECHNIQUE: 3 views of the bilateral knees. COMPARISON: None. FINDINGS: Bones: No fractures or dislocations. No suspicious bony lesions. Soft tissues: No joint effusion. No suspicious soft tissue calcifications. IMPRESSION: No acute finding. Reviewed by: Marin Brothers MD on 10/01/2021 7:29 PM PST Approved by: Marin Brothers MD on 10/01/2021 7:29 PM PST Station ID: [id number]
[2021-10-01] MEDS ORDERED: IOPAMIDOL-300 100 ML VIAL IVP ONE (19:58)
--- NOTE | 2021-10-01 20:35 | CT Report ---
PROCEDURE: ANGIO CHEST W/WO INDICATIONS: Chest pain, dyspnea, active CA, PE protocol CONTRAST: IV CONTRAST: Isovue 300 ml: 60 PO CONTRAST: *NO PO CONTRAST TECHNIQUE: After the administration of intravenous contrast, 2 mm axial images were acquired from the pulmonary apices to the posterior costophrenic angles during the arterial phase. In addition, 1 mm lung kernel and 5 mm soft tissue kernel reconstructions were performed. 3-dimensional coronal oblique maximum int ensity projection (MIP) reformats, 8 mm axial MIP, and 5 mm coronal and sagittal MPR reformats were t hen performed through the thorax. For radiation dose reduction, the following was used: automated exp osure control, adjustment of mA and/or kV according to patient size. COMPARISON: 07/[address] chest. FINDINGS: Image quality: Excellent. Pulmonary arteries: The pulmonary arteries are very suboptimally opacified. Attenuation of the main p ulmonary trunk is only 90 Hounsfield units. This is inadequate to exclude even a central or proximal pulmonary filling defect. Lungs and pleura: Large right pleural effusion. Compressive atelectasis of most of the right lung. Th e right middle lobe is not entirely collapsed and the aerated portion contains some groundglass and c onsolidative opacity suspicious for infection. The left lung and pleural space are clear. Mediastinum: Normal heart size. No pericardial effusion. No threshold enlarged mediastinal or hilar l ymph node. Bones and chest wall: Thoracic vertebral body heights maintained. No suspicious lytic or blastic osse ous lesion. IMPRESSION: Nondiagnostic exam for pulmonary embolism. Large right pleural effusion with resulting compressive atelectasis involving most of the right lung. Groundglass opacity and consolidation in the right middle lobe, likely infectious. Reviewed by: Marin Brothers MD on 10/01/2021 8:34 PM PST Approved by: Marin Brothers MD on 10/01/2021 8:34 PM PST Station ID: [id number]
[2021-10-01] MEDS ORDERED: cefTRIAXone 2 GM in SODIUM CHLORIDE 0.9% MINIBAG 100 ML IV STA (20:51)
[2021-10-01] MEDS ORDERED: KETAMINE 500 MG/10 ML VIAL IVP STA (20:51)
[2021-10-01] MEDS ORDERED: metroNIDAZOLE 500 MG/100 ML 500 MG/100 ML BAG IV ONE (20:51)
[2021-10-01 20:59] LABS: INR 1.5 (0.8-1.2); PT - PROTHROMBIN TIME 16.3 secs (9.9-12.6)
[2021-10-01] MEDS ORDERED: cefTRIAXone 2 GM VIAL ONE (21:00)
[2021-10-01] MEDS ORDERED: LIDOCAINE 1%-EPI 1:100000 20 ML MDV SUBQ STA (21:00)
[2021-10-01 21:16] LABS: B. PARAPERTUSSIS- RESP PCR PAN NOT DETECTED; B. PERTUSSIS- RESP PCR PANEL NOT DETECTED; C. PNEUMONIAE- RESP PCR PANEL NOT DETECTED; CORONAVIRUS 229E-RESP PCR NOT DETECTED; CORONAVIRUS HKU1-RESP PCR NOT DETECTED; CORONAVIRUS NL63-RESP PCR NOT DETECTED; CORONAVIRUS OC43-RESP PCR NOT DETECTED; HUMAN METAPNEUMOVIRUS NOT DETECTED; INFLUENZA A- RESP PCR PANEL NOT DETECTED; INFLUENZA B - RESP PCR PANEL NOT DETECTED; M. PNEUMONIAE- RESP PCR PANEL NOT DETECTED; PARAINFLUENZA VIRUS 1 NOT DETECTED; PARAINFLUENZA VIRUS 2 NOT DETECTED; PARAINFLUENZA VIRUS 3 NOT DETECTED; PARAINFLUENZA VIRUS 4 NOT DETECTED; RHINOVIRUS/ENTEROVIRUS NOT DETECTED; RSV- RESP PCR PANEL NOT DETECTED; SARS-CoV-2 -RESP PCR PANEL NOT DETECTED
[2021-10-01] MEDS ORDERED: ONDANSETRON ODT 4 MG TABLET TL PRN (21:34)
[2021-10-01] MEDS ORDERED: ONDANSETRON 4 MG/2 ML VIAL IVP PRN (21:34)
[2021-10-01] MEDS ORDERED: POTASSIUM CHLORIDE 20 MEQ TABLET PO STA (21:36)
--- NOTE | 2021-10-01 21:42 | HISTORY & PHYSICAL EXAMINATION ---
Chief Complaint - Chief Complaint Chief Complaint: Weakness History of Present Illness - Admitted From Admitted From:: Home - History Obtained From Records Reviewed: Yes History obtained from: Patient, ER Physician, EMR - History of Present Illness HPI Comment/Other: This is a 65-year-old male with a past medical history significant for prostate cancer and gout who presents today complaining of weakness and back pain. Most of the history is obtained from the emergency department physician as the patient is quite somnolent upon my evaluation as he received ketamine and Dilaudid for chest tube placement. The patient tells me he came in with left- sided back pain that has been going on for most of his life. When asked as to why he came in today for the back pain, he could not answer. He states he has felt weak and has had a poor appetite as well as weight loss. He cannot tell me for how long this has been going on for. He denies any fevers, chills, chest pain, dyspnea. He does have a nonproductive cough. Reports no abdominal pain, nausea, vomiting, diarrhea, dysuria, urgency. He states his prostate cancer is in remission and that it was treated with radiation. In the emergency department, he was noted to be tachycardic with a heart rate in the 110s. He was afebrile and normotensive. Imaging revealed a large right- sided pleural effusion and he underwent a CT angiogram of the chest which was suboptimal for pulmonary embolism but did reveal the right-sided pleural effusion with associated consolidation. His labs were significant for white count of 13,000. Chest tube was placed in the emergency department with nearly 4 L of pleural fluid drained. This was sent for pleural fluid studies. Given the concern for parapneumonic effusion, medicine was consulted for admission. The patient was too somnolent to discuss goals of care. History - Past Medical History Cardiovascular: reports: Hypertension Respiratory: reports: None Endocrine/Autoimmune: reports: None GI: reports: None : reports: None, Other (Prostate cancer) HEENT: reports: None Psych: reports: Anxiety Musculoskeletal: reports: Gout Derm: reports: None MRSA Hx?: No - Past Surgical History Ortho: reports: Knee replacement - Family & Social History Family History: Mother: , Father: Family History Comment/Other: He reports his mother from pancreatic cancer and his father from lung cancer. He was a smoker. Living arrangement: At home Living Situation: With family Social History Notes: He lives at home with his , Jelena. He is a non- smoker and rarely drinks alcohol. - POLST Patient has POLST: No Meds/Allgy - Home Medications Home Medications: Ambulatory Orders Medication Instructions Recorded Confirmed allopurinoL [Allopurinol] 100 mg PO DAILY PRN 08/30/14 10/02/21 Ibuprofen [Motrin] 800 mg PO DAILY 10/02/21 10/02/21 LORazepam [Ativan] 0.5 mg PO DAILY PRN 10/02/21 10/02/21 Potassium Chloride [Klor-Con M20] 20 meq PO DAILY 10/02/21 10/02/21 - Allergies Allergies/Adverse Reactions: Allergies Allergy/AdvReac Type Severity Reaction Status Date / Time codeine AdvReac Severe Emesis Verified 10/01/21 18:19 Review of Systems - Constitutional Constitutional: reports: Weakness, Poor appetite, Weight loss. denies: Fever, Chills - Cardiovascular Cariovascular: denies: Chest pain, Lightheadedness, Syncope - Respiratory Respiratory: reports: Cough. denies: SOB at rest, SOB with exertion - Gastrointestinal Gastrointestinal: reports: Poor appetite. denies: Abdominal pain, Diarrhea, Nausea, Vomiting - Genitourinary Genitourinary: denies: Dysuria, Frequency, Hematuria, Incontinence - Musculoskeletal Musculoskeletal: reports: Back pain - Neurological Neurological: reports: General weakness. denies: Focal weakness - All Other Systems All Other Systems: reports: Other Exam - Vital Signs Reviewed Vital Signs: Yes Vital Signs: Vital Signs x48h Temp Pulse Resp BP Pulse Ox 10/01/21 21:10 106 H 18 140/101 H 97 10/01/21 19:11 108 H 16 138/78 H 93 10/01/21 18:21 73 14 155/64 H 10/01/21 17:59 36.7 C 104 H 20 130/80 93 - Physical Exam General Appearance: positive: Other (Appears frail and older than stated age.) Eyes Bilateral: positive: Conjunctivae nml ENT: positive: ENT inspection nml Neck: positive: Nml inspection Respiratory: positive: Chest non-tender, No respiratory distress, Other (Diminished in right lung field.). negative: Wheezes, Rales Cardiovascular: positive: Tachycardia, Other (Right chest tube in place.). negative: Irregularly irregular, Systolic murmur Abdomen: positive: Non-tender, No distention. negative: Tenderness Skin: positive: Warm, Dry Extremities: positive: No pedal edema Neurologic/Psychiatric: positive: Other (No focal deficits). negative: Disoriented to person, Disoriented to place, Disoriented to time Conclusion/Plan - Problem List (1) Parapneumonic effusion Conclusion/Plan: CT revealed a large right pleural effusion with associated consolidation and the concern is for parapneumonic effusion. A chest tube was placed in the emergency department and there was no obvious pus or blood suggest an empyema or hemothorax. His white count is elevated as well as his CRP. Fortunately, he is not hypoxic. We will start him empirically on ceftriaxone and Flagyl IV. I did asked the emergency department physician to send for pH, LDH, glucose, cell count, cultures, and creatinine from the pleural fluid. The concern is that this is potentially a malignant effusion and we have asked for cytology as well. We will consult general surgery in the morning to help assist with the chest tube management. We will follow up the post chest tube chest x-ray. (2) Prostate cancer Conclusion/Plan: He tells me this is in remission and that it was treated with radiation. Most recent PSA in July 2021 was not detectable. He could not tell me who his oncologist was. Given concern for potential malignant effusion, we will check a PSA. (3) Hypokalemia Conclusion/Plan: Likely secondary to poor oral intake. We will replace this orally and recheck. - Lab Results Lab results reviewed: Yes Fish Bones: 10/02/21 04:45 10/02/21 04:45 - Diagnostic Imaging Results Diagnostic Imaging Results: positive: Final report reviewed Core Measures - Anticipated LOS I expect patient to be DC'd or transferred within 96 hours.: Yes - Issues Hospital Issues and Management Plan: 65-year-old male with history of prostate cancer presents due to weakness found to have a large right pleural effusion with concerns for parapneumonic effusion. Chest tube has been placed and we will start him empirically on IV antibiotics and follow-up pleural fluid studies. - DVT/VTE - Prophylaxis VTE/DVT Device ordered at admit?: Yes VTE/DVT Prophylaxis med ordered at admit?: No
[2021-10-01 21:53] LABS: CC,BF RBC 2000 /mm^3; CC,BF WBC 282 /mm^3
[2021-10-01 21:54] LABS: BF CLARITY HAZY; BF COLOR YELLOW; BF SOURCE PLEURAL
--- NOTE | 2021-10-01 22:37 | XRAY Report ---
PROCEDURE: Chest for Line Placement INDICATIONS: post chest tube TECHNIQUE: One view of the chest was acquired. COMPARISON: CT pulmonary angiogram earlier today. CT chest 07/01/2020. FINDINGS: Surgical changes and devices: Sided chest tube with the tip at the medial upper thorax. Lungs and pleura: Substantial interval decrease in the right-sided pleural effusion now appears small . No significant effusion on the left. Opacity the at the right lung base has the appearance of atele ctasis. No pneumothorax seen. Mediastinum: Mediastinal contours are within normal limits. Heart size is normal. Bones and chest wall: No suspicious bony lesions. Mild right subcutaneous emphysema. Shoulder anchor s. IMPRESSION: Right-sided chest tube the tip at the medial upper thorax. Substantial interval decrease in the right pleural effusion, now small. Reviewed by: Ke Ley MD on 10/01/2021 10:36 PM PST Approved by: Ke Ley MD on 10/01/2021 10:36 PM PST Station ID: [id number]
[2021-10-01] MEDS: LACTATED RINGERS 1,000 ML IV SCH (22:51)
[2021-10-01 23:31] LABS: LYMPHOCYTES %,BODY FLUID 20 %; MACROPHAGES %,BODY FLUID 38 %; MESOTHELIAL %, BF 7 %; MONOCYTES %,BODY FLUID 35 %
[2021-10-02] MEDS: SODIUM CHLORIDE FLUSH 0.9% 10 ML SYRINGE IVP SCH ×3 (00:40→16:37)
[2021-10-02] MEDS: ACETAMINOPHEN 325 MG TABLET PO PRN ×2 (02:45→08:30)
[2021-10-02] MEDS: metroNIDAZOLE 500 MG/100 ML 500 MG/100 ML BAG IV SCH ×3 (05:13→20:14)
[2021-10-02 05:59] LABS: BASOPHILS % (AUTO) 0.3 %; EOSINOPHILS % (AUTO) 0.3 %; HCT - HEMATOCRIT 31.7 % (42.0-52.0); HGB - HEMOGLOBIN 11.1 g/dL (14.0-18.0); MEAN CORPUSCULAR VOLUME 108.6 fL (80.0-94.0); MEAN PLATELET VOLUME 10.2 fL (7.4-11.4); MONOCYTES % (AUTO) 7.3 %; NEUTROPHILS % (AUTO) 85.5 %; PLT - PLATELET COUNT 165 10^3/uL (130-450); RED BLOOD COUNT 2.92 10^6/uL (4.70-6.10); RED CELL DISTRIBUTION WIDTH 13.2 % (12.0-15.0); WHITE BLOOD COUNT 17.9 x10^3/uL (4.8-10.8)
[2021-10-02 06:05] LABS: ABNORMAL LYMPHS % (MANUAL) 0 %; BAND NEUTROPHILS % (MANUAL) 0 %
[2021-10-02] MEDS ORDERED: LACTATED RINGERS 1,000 ML IV ONE (06:13)
[2021-10-02 06:19] LABS: CALCIUM 7.6 mg/dL (8.5-10.3); CREATININE 0.5 mg/dL (0.6-1.2); CRP - C-REACTIVE PROTEIN 9.6 mg/dL (0-1.0); POTASSIUM 3.2 mmol/L (3.5-5.0)
[2021-10-02 06:28] LABS: DIFFERENTIAL COMMENT MANUAL DIFFERENTIAL; EOSINOPHILS # (MANUAL) 0.2 10^3/uL (0-0.7); LYMPHOCYTES # (MANUAL) 1.1 10^3/uL (1.5-3.5); LYMPHOCYTES % (MANUAL) 6 %; MONOCYTES # (MANUAL) 1.1 10^3/uL (0.0-1.0); NEUTROPHILS # (MANUAL) 15.6 10^3/uL (1.5-6.6); PLATELET ESTIMATE, MANUAL NORMAL (130-450,000) (NORMAL); PLATELET MORPHOLOGY NORMAL APPEARANCE (NORMAL); RBC MORPHOLOGY (MULTIPLE) NORMAL APPEARANCE (NORMAL); WBC MORPHOLOGY (MULTIPLE) NORMAL APPEARANCE (NORMAL)
[2021-10-02 08:13] LABS: PSA TOTAL < 0.008 ng/mL (0.000-2.000)
[2021-10-02] MEDS: cefTRIAXone 2 GM in SODIUM CHLORIDE 0.9% MINIBAG 100 ML IV SCH (08:49)
--- NOTE | 2021-10-02 08:56 | PROVIDER PROGRESS NOTE ---
Assessment/Plan - Current Meds Current Meds: Current Medications Generic Name Dose Route Start Last Admin Trade Name Artis PRN Reason Stop Dose Admin Acetaminophen 650 mg 10/01/21 21:34 10/02/21 08:30 Acetaminophen 325 Mg Tablet PO 650 mg Q4HR PRN Administration Pain 1 to 4 Lactated Ringer's 1,000 mls @ 100 mls/hr 10/01/21 22:00 10/02/21 07:06 Lr IV 10/02/21 17:59 0 mls/hr .Q10H BRENDA Infusion Ceftriaxone Sodium 2 gm/ 100 mls @ 200 mls/hr 10/02/21 09:00 10/02/21 08:49 Sodium Chloride IV 200 mls/hr DAILY BRENDA Administration Metronidazole 500 mg in 100 mls @ 100 mls/hr 10/02/21 05:00 10/02/21 06:23 Flagyl 500 Mg/100 Ml IV Infused Q8H BRENDA Infusion Sodium Chloride 10 ml 10/02/21 01:00 10/02/21 08:30 Sodium Chloride Flush 0.9% 10 Ml Syringe IVP Not Given 0100,0900,1700 BRENDA - Lab Result Fish Bone Diagrams: 10/02/21 04:45 10/02/21 04:45 Objective Vital Signs: Vital Signs - 24 hr 10/01/21 10/01/21 10/01/21 17:59 18:21 19:11 Temperature 36.7 C Heart Rate 104 H 73 108 H Heart Rate [ Brachial] Respiratory 20 14 16 Rate Blood Pressure 130/80 155/64 H 138/78 H Blood Pressure [Left Brachial artery] O2 Saturation 93 93 10/01/21 10/01/21 10/01/21 21:10 21:15 21:20 Temperature Heart Rate 106 H 109 H 110 H Heart Rate [ Brachial] Respiratory 18 20 19 Rate Blood Pressure 140/101 H 155/87 H 157/99 H Blood Pressure [Left Brachial artery] O2 Saturation 97 97 97 10/01/21 10/01/21 10/01/21 21:30 21:45 21:47 Temperature Heart Rate 111 H 110 H 105 H Heart Rate [ Brachial] Respiratory 20 14 15 Rate Blood Pressure 135/90 H 127/81 H Blood Pressure [Left Brachial artery] O2 Saturation 95 95 10/01/21 10/01/21 10/01/21 22:00 22:15 22:53 Temperature 36.8 C Heart Rate 100 117 H Heart Rate [ 105 H Brachial] Respiratory 18 16 16 Rate Blood Pressure 133/85 H 133/81 H Blood Pressure 138/85 H [Left Brachial artery] O2 Saturation 95 95 97 10/02/21 10/02/21 10/02/21 05:15 06:00 07:16 Temperature 36.9 C 36.3 C L Heart Rate Heart Rate [ 106 H 101 H Brachial] Respiratory 16 18 Rate Blood Pressure Blood Pressure 84/52 L 83/48 L 92/52 L [Left Brachial artery] O2 Saturation 94 96 Oxygen O2 Source Nasal cannula I&O (Last 24 Hrs): Intake and Output Totals x24h 09/30/21 10/01/21 10/02/21 23:59 23:59 23:59 Intake Total 300.000 840.000 Output Total 1150 Balance 300.000 -310.000 - Results Results: Laboratory Results WBC 17.9 x10^3/uL (4.8-10.8) H 10/02/21 04:45 RBC 2.92 10^6/uL (4.70-6.10) L 10/02/21 04:45 Hgb 11.1 g/dL (14.0-18.0) L 10/02/21 04:45 Hct 31.7 % (42.0-52.0) L 10/02/21 04:45 MCV 108.6 fL (80.0-94.0) H 10/02/21 04:45 MCH 38.0 pg (27.0-31.0) H 10/02/21 04:45 MCHC 35.0 g/dL (32.0-36.0) 10/02/21 04:45 RDW 13.2 % (12.0-15.0) 10/02/21 04:45 Plt Count 165 10^3/uL (130-450) 10/02/21 04:45 MPV 10.2 fL (7.4-11.4) 10/02/21 04:45 Neut # (Auto) Not Reportable 10/02/21 04:45 Lymph # (Auto) Not Reportable 10/02/21 04:45 Gaines # (Auto) Not Reportable 10/02/21 04:45 Eos # (Auto) Not Reportable 10/02/21 04:45 Baso # (Auto) Not Reportable 10/02/21 04:45 Absolute Nucleated RBC Not Reportable 10/02/21 04:45 Total Counted 100 10/02/21 04:45 Band Neuts % (Manual) 0 % (0-10) 10/02/21 04:45 Abnorm Lymph % (Manual) 0 % 10/02/21 04:45 Nucleated RBC % Not Reportable 10/02/21 04:45 Neutrophils # (Manual) 15.6 10^3/uL (1.5-6.6) H 10/02/21 04:45 Lymphocytes # (Manual) 1.1 10^3/uL (1.5-3.5) L 10/02/21 04:45 Monocytes # (Manual) 1.1 10^3/uL (0.0-1.0) H 10/02/21 04:45 Eosinophils # (Manual) 0.2 10^3/uL (0-0.7) 10/02/21 04:45 Basophils # (Manual) 0.0 10^3/uL (0-0.1) 10/02/21 04:45 Differential Comment MANUAL DIFFERENTIAL 10/02/21 04:45 WBC Morphology NORMAL APPEARANCE (NORMAL) 10/02/21 04:45 Platelet Estimate NORMAL (130-450,000) (NORMAL) 10/02/21 04:45 Platelet Morphology NORMAL APPEARANCE (NORMAL) 10/02/21 04:45 RBC Morph Micro Appear NORMAL APPEARANCE (NORMAL) 10/02/21 04:45 ESR 59 mm/Hr (0-20) H 10/01/21 18:35 PT 16.3 secs (9.9-12.6) H 10/01/21 20:43 INR 1.5 (0.8-1.2) H 10/01/21 20:43 Sodium 132 mmol/L (135-145) L 10/02/21 04:45 Potassium 3.2 mmol/L (3.5-5.0) L 10/02/21 04:45 Chloride 96 mmol/L (101-111) L 10/02/21 04:45 Carbon Dioxide 27 mmol/L (21-32) 10/02/21 04:45 Anion Gap 9.0 (6-13) 10/02/21 04:45 BUN 9 mg/dL (6-20) 10/02/21 04:45 Creatinine 0.5 mg/dL (0.6-1.2) L 10/02/21 04:45 Estimated GFR (MDRD) 167 (>89) 10/02/21 04:45 Glucose 139 mg/dL (70-100) H 10/02/21 04:45 Lactic Acid 0.8 mmol/L (0.5-2.2) 10/01/21 21:41 Calcium 7.6 mg/dL (8.5-10.3) L 10/02/21 04:45 Magnesium 1.7 mg/dL (1.7-2.8) 10/01/21 18:35 Total Bilirubin 2.5 mg/dL (0.2-1.0) H 10/01/21 18:35 AST 30 IU/L (10-42) 10/01/21 18:35 ALT < 10 IU/L (10-60) L 10/01/21 18:35 Alkaline Phosphatase 128 IU/L (42-121) H 10/01/21 18:35 Lactate Dehydrogenase 118 IU/L (91-225) 10/01/21 18:35 Troponin I High Sens 12.6 ng/L (2.3-19.7) 10/01/21 18:35 C-Reactive Protein 9.6 mg/dL (0-1.0) H 10/02/21 04:45 Total Protein 7.6 g/dL (6.7-8.2) 10/01/21 18:35 Albumin 2.3 g/dL (3.2-5.5) L 10/01/21 18:35 Globulin 5.3 g/dL (2.1-4.2) H 10/01/21 18:35 Albumin/Globulin Ratio 0.4 (1.0-2.2) L 10/01/21 18:35 Lipase 16 U/L (22-51) L 10/01/21 18:35 Prostate Specific Ag < 0.008 ng/mL (0.000-2.000) 10/01/21 18:35 Free PSA 0.010 ng/mL (0.16-2.81) L 10/01/21 18:35 % Free PSA Calc TNP 10/01/21 18:35 Fluid Source PLEURAL 10/01/21 21:20 Fluid Color YELLOW 10/01/21 21:20 Fluid Clarity HAZY 10/01/21 21:20 Fluid WBC 282 /mm^3 10/01/21 21:20 Fluid RBC 2000 /mm^3 10/01/21 21:20 Fluid Neutrophils % Not Reportable 10/01/21 21:20 Fluid Lymphocytes % 20 % 10/01/21 21:20 Fluid Monocytes % 35 % 10/01/21 21:20 Fluid Macrophages % 38 % 10/01/21 21:20 Fld Mesothelial Cell % 7 % 10/01/21 21:20 Nasal Adenovirus (PCR) NOT DETECTED 10/01/21 20:18 Nasal B. parapertussis DNA (PCR) NOT DETECTED 10/01/21 20:18 Nasal Coronavir 229E PCR NOT DETECTED 10/01/21 20:18 Nasal Coronavir HKU1 PCR NOT DETECTED 10/01/21 20:18 Nasal Coronavir NL63 PCR NOT DETECTED 10/01/21 20:18 Nasal Coronavir OC43 PCR NOT DETECTED 10/01/21 20:18 Nasal Enterovir/Rhinovir PCR NOT DETECTED 10/01/21 20:18 Nasal Influenza B PCR NOT DETECTED 10/01/21 20:18 Nasal Influenza A PCR NOT DETECTED 10/01/21 20:18 Nasal Parainfluen 1 PCR NOT DETECTED 10/01/21 20:18 Nasal Parainfluen 2 PCR NOT DETECTED 10/01/21 20:18 Nasal Parainfluen 3 PCR NOT DETECTED 10/01/21 20:18 Nasal Parainfluen 4 PCR NOT DETECTED 10/01/21 20:18 Nasal RSV (PCR) NOT DETECTED 10/01/21 20:18 Nasal B.pertussis DNA PCR NOT DETECTED 10/01/21 20:18 Nasal C.pneumoniae (PCR) NOT DETECTED 10/01/21 20:18 Caesar Human Metapneumo PCR NOT DETECTED 10/01/21 20:18 Nasal M.pneumoniae (PCR) NOT DETECTED 10/01/21 20:18 Nasal SARS-CoV-2 (PCR) NOT DETECTED 10/01/21 20:18 Ethyl Alcohol < 5.0 mg/dL 10/01/21 18:35 - Procedures Procedures: Procedures ENDO RECTUM POLYPECTOMY (02/23/14)
[2021-10-02] MEDS ORDERED: MAGNESIUM SULFATE 2 GRAM 2 GM/50 ML BAG IV ONE (10:22)
[2021-10-02] MEDS: AZITHROMYCIN INJ 500 MG in SODIUM CHLORIDE 0.9% 250 ML IV SCH (11:31)
--- NOTE | 2021-10-02 11:37 | XRAY Report ---
PROCEDURE: Chest 1 View X-Ray INDICATIONS: Right pleural effusion with chest tube TECHNIQUE: One view of the chest was acquired. COMPARISON: Chest radiographs and CT pulmonary angiogram 10/01/2021 FINDINGS: Surgical changes and devices: A right-sided chest tube is again seen with tip projecting over the med iastinum and medial right upper lobe. Suture anchors are seen in the right humeral head. Lungs and pl eura: The previously seen right-sided pleural effusion has nearly completely resolved. Opacity at th e right lung base may represent small amount of loculated pleural effusion versus atelectasis, pneumo diogo, or other nonspecific intrapulmonary lesion. No pneumothorax. Mediastinum: Mediastinal contours appear normal. Heart size is normal. Bones and chest wall: No suspicious bony lesions. Overlying soft tissues appear unremarkable. IMPRESSION: Stable right-sided chest tube. Near complete resolution of the previously seen right pleural effusion . Nonspecific right lower lobe opacity. Reviewed by: Aris Morel MD on 10/02/2021 11:36 AM PST Approved by: Aris Morel MD on 10/02/2021 11:36 AM PST Station ID: [id number]
[2021-10-02] MEDS: SODIUM CHLORIDE FLUSH 0.9% 10 ML SYRINGE IVP PRN (11:44)
--- NOTE | 2021-10-02 11:55 | PHARMACY PROGRESS NOTE ---
- Best Possible Medication History Admit Date and Time: 10/01/212133 Processed by: Pharmacy Medication History completed: Yes Patient Interview: Completed Secondary Source(s): Physician records, Pharmacy records, Insurance records As the person ultimately responsible for medication therapy, providers are able to order a medication from an existing home medication list in [facility] via the "Reconcile Routine" prior to Confirmation of that medication by support associate. Such practice is discouraged except when the physician, in their clinical judgment, deems that a medical need exists for a medication without regard to previous use.
[2021-10-02] MEDS: POTASSIUM CHLOR 10 MEQ/100 ML 10 MEQ/100 ML BAG IV SCH ×4 (12:28→16:00)
[2021-10-02 13:13] LABS: GLUCOSE, URINE (UA) NEGATIVE (NEGATIVE); KETONES,URINE (UA) NEGATIVE (NEGATIVE); LEUKOCYTE ESTERASE, URINE NEGATIVE (NEGATIVE); NITRITE,URINE POSITIVE (NEGATIVE); OCCULT BLOOD,URINE SMALL (NEGATIVE); PH,URINE 6.5 PH (5.0-7.5); PROTEIN,URINE TRACE mg/dL (NEGATIVE); UROBILINOGEN,URINE 2 E.U./dL (NORMAL)
[2021-10-02 13:28] LABS: BILIRUBIN,URINE NEGATIVE (NEGATIVE); CLARITY,URINE CLEAR (CLEAR); ICTOTEST,URINE NEGATIVE; WBC,URINE 0-3 /HPF (0-3)
[2021-10-02 13:29] LABS: BACTERIA,URINE None Seen /HPF (None Seen); EPITHELIAL CELLS,UR None Seen /HPF (<= Few); RBC,URINE 0-5 /HPF (0-5); SQUAMOUS EPITHELIAL CELL,UR RARE Squamous (<= Few); WBC CLUMPS,URINE NONE SEEN
[2021-10-02] MEDS: LACTATED RINGERS 1,000 ML IV SCH (14:45)
--- NOTE | 2021-10-02 15:11 | CONSULTATION NOTE ---
Referring Provider Name of Referring Provider:: Dr. Thompson Consult Date: 10/02/21 Chief Complaint - Chief Complaint Chief Complaint: Weakness and fatigue History of Present Illness - Admitted From Admitted From:: ED - History Obtained From Records Reviewed: Provider's Notes History obtained from: Patient and other providers Exam Limitations: None - History of Present Illness HPI Comment/Other: Hunter is a unfortunate 65-year-old gentleman who presented to the emergency room yesterday complaining of weakness and generalized fatigue. He was noted there to be markedly cachectic and was found on chest x-ray to have a very large right pleural effusion creating midline shift.A chest tube was placed in the emergency room and the pulmonary effusion drained between 4 and 5 L. It has continued to drain overnight.I have been consulted for continuing chest tube management.Hunter is concerned about his knee. He says it has been hurting him and he thinks someone did an x-ray on it he would like to know what that shows.He denies any abdominal pain. He is no longer short of breath but he is having waves of nausea at times. History - Past Medical History Cardiovascular: reports: Hypertension Respiratory: reports: None Neuro: reports: None Endocrine/Autoimmune: reports: None GI: reports: None : reports: None, Other (Prostate cancer) HEENT: reports: None Psych: reports: Anxiety Musculoskeletal: reports: Gout Derm: reports: None MRSA Hx?: No - Past Surgical History Ortho: reports: Knee replacement - Family & Social History Family History: Mother: , Father: Family History Comment/Other: He reports his mother from pancreatic cancer and his father from lung cancer. He was a smoker. Living arrangement: At home Living Situation: With family Social History Notes: He lives at home with his , Jelena. He is a non- smoker and rarely drinks alcohol. - POLST Patient has POLST: No Meds/Allgy - Home Medications Home Medications: Ambulatory Orders Medication Instructions Recorded Confirmed allopurinoL [Allopurinol] 100 mg PO DAILY PRN 08/30/14 10/02/21 Ibuprofen [Motrin] 800 mg PO DAILY 10/02/21 10/02/21 LORazepam [Ativan] 0.5 mg PO DAILY PRN 10/02/21 10/02/21 Potassium Chloride [Klor-Con M20] 20 meq PO DAILY 10/02/21 10/02/21 - Allergies Allergies/Adverse Reactions: Allergies Allergy/AdvReac Type Severity Reaction Status Date / Time codeine AdvReac Severe Emesis Verified 10/01/21 18:19 Review of Systems - Constitutional Constitutional: reports: Fatigue, Weakness - Respiratory Respiratory: reports: Cough Exam - Vital Signs Reviewed Vital Signs: Yes Vital Signs: Vital Signs x48h Temp Pulse Resp BP Pulse Ox 10/02/21 11:34 36.7 C 93 17 100/60 94 10/02/21 07:16 36.3 C L 101 H 18 92/52 L 96 - Physical Exam General Appearance: positive: Alert, Mild distress Eyes Bilateral: positive: Normal inspection, EOMI ENT: positive: ENT inspection nml Respiratory: positive: Other (Right chest tube in place in the midaxillary line. Straw-colored fluid leaking occasionally around the insertion site. The Pleur- evac contains the same fluid.The insertion site is clean and without evidence of infection.) Cardiovascular: positive: Regular rate & rhythm Abdomen: positive: Non-tender, Other (Scaphoid) Conclusion and Plan - Lab Results Laboratory Results 10/02/21 13:00: Urine Color DARK YELLOW, Urine Clarity CLEAR, Urine pH 6.5, Ur Specific [place] 1.020, Urine Protein TRACE, Urine Glucose (UA) NEGATIVE, Urine Ketones NEGATIVE, Urine Occult Blood SMALL H, Urine Nitrite POSITIVE H, Urine Bilirubin NEGATIVE, Urine Urobilinogen 2 H, Ur Leukocyte Esterase NEGATIVE, Urine RBC 0-5, Urine WBC 0-3, Urine WBC Clumps NONE SEEN, Ur Epithelial Cells None Seen, Ur Squamous Epith Cells RARE Squamous, Urine Bacteria None Seen, Ur Microscopic Review INDICATED, Urine Culture Comments INDICATED 10/02/21 04:45: Sodium 132 L, Potassium 3.2 L, Chloride 96 L, Carbon Dioxide 27, Anion Gap 9.0, BUN 9, Creatinine 0.5 L, Estimated GFR (MDRD) 167, Glucose 139 H, Calcium 7.6 L, C-Reactive Protein 9.6 H 10/02/21 04:45: WBC 17.9 H, RBC 2.92 L, Hgb 11.1 L, Hct 31.7 L, MCV 108.6 H, MCH 38.0 H, MCHC 35.0, RDW 13.2, Plt Count 165, MPV 10.2, Neut # (Auto) Not Reportable, Lymph # (Auto) Not Reportable, Pepin # (Auto) Not Reportable, Eos # (Auto) Not Reportable, Baso # (Auto) Not Reportable, Absolute Nucleated RBC Not Reportable, Total Counted 100, Band Neuts % (Manual) 0, Abnorm Lymph % (Manual) 0, Nucleated RBC % Not Reportable, Neutrophils # (Manual) 15.6 H, Lymphocytes # (Manual) 1.1 L, Monocytes # (Manual) 1.1 H, Eosinophils # (Manual) 0.2, Basophils # (Manual) 0.0, Differential Comment MANUAL DIFFERENTIAL, WBC Mo rphology NORMAL APPEARANCE, Platelet Estimate NORMAL (130-450,000), Platelet Morphology NORMAL APPEARANCE, RBC Morph Micro Appear NORMAL APPEARANCE 10/01/21 21:41: Lactic Acid 0.8 10/01/21 21:20: Fluid Source PLEURAL, Fluid Color YELLOW, Fluid Clarity HAZY, Fluid WBC 282, Fluid RBC 2000, Fluid Neutrophils % Not Reportable, Fluid Lymphocytes % 20, Fluid Monocytes % 35, Fluid Macrophages % 38, Fld Mesothelial Cell % 7 10/01/21 20:43: PT 16.3 H, INR 1.5 H 10/01/21 20:18: Nasal Adenovirus (PCR) NOT DETECTED, Nasal B. parapertussis DNA (PCR) NOT DETECTED, Nasal Coronavir 229E PCR NOT DETECTED, Nasal Coronavir HKU1 PCR NOT DETECTED, Nasal Coronavir NL63 PCR NOT DETECTED, Nasal Coronavir OC43 PCR NOT DETECTED, Nasal Enterovir/Rhinovir PCR NOT DETECTED, Nasal Influenza B PCR NOT DETECTED, Nasal Influenza A PCR NOT DETECTED, Nasal Parainfluen 1 PCR NOT DETECTED, Nasal Parainfluen 2 PCR NOT DETECTED, Nasal Parainfluen 3 PCR NOT DETECTED, Nasal Parainfluen 4 PCR NOT DETECTED, Nasal RSV (PCR) NOT DETECTED, Nasal B.pertussis DNA PCR NOT DETECTED, Nasal C.pneumoniae (PCR) NOT DETECTED, Caesar Human Metapneumo PCR NOT DETECTED, Nasal M.pneumoniae (PCR) NOT DETECTED, Nasal SARS-CoV-2 (PCR) NOT DETECTED 10/01/21 18:35: Prostate Specific Ag < 0.008, Free PSA 0.010 L, % Free PSA Calc TNP 10/01/21 18:35: Lactate Dehydrogenase 118 10/01/21 18:35: Magnesium 1.7 10/01/21 18:35: Ethyl Alcohol < 5.0 10/01/21 18:35: Troponin I High Sens 12.6 10/01/21 18:35: ESR 59 H 10/01/21 18:35: Sodium 133 L, Potassium 2.8 L, Chloride 93 L, Carbon Dioxide 29, Anion Gap 11.0, BUN 8, Creatinine 0.7, Estimated GFR (MDRD) 114, Glucose 132 H, Calcium 8.3 L, Total Bilirubin 2.5 H, AST 30, ALT < 10 L, Alkaline Phosphatase 128 H, C-Reactive Protein 8.6 H, Total Protein 7.6, Albumin 2.3 L, Globulin 5.3 H, Albumin/Globulin Ratio 0.4 L, Lipase 16 L 10/01/21 18:35: WBC 13.3 H, RBC 3.35 L, Hgb 12.4 L, Hct 36.6 L, MCV 109.3 H, MCH 37.0 H, MCHC 33.9, RDW 13.4, Plt Count 200, MPV 9.2, Neut # (Auto) 10.9 H, Lymph # (Auto) 1.0 L, Pepin # (Auto) 1.2 H, Eos # (Auto) 0.0, Baso # (Auto) 0.0, Absolute Nucleated RBC 0.00, Nucleated RBC % 0.0 - Diagnostic Imaging Results Diagnostic Imaging Results: positive: Final report reviewed, Discussed with radiologist Diagnostic Imaging Results Comments: Repeat chest x-ray today shows the tube to be in good position with near complete resolution of the effusion. Continues to drain copiously however - Diagnosis Diagnosis: Large right pleural effusion-status post chest tube drainage in the emergency department. - Plan Plan: I have elected to put the tube back to suction. He does not necessarily need this to drain the fluid but hopefully it will evacuate the air in the pleural space and help to inflate his lung better. This may also slow down the effusion and help it to stop quicker. We will leave it on 20 mm of negative pressure for the next several days. Repeat the chest x-ray in the morning. Pleural fluid studies are pending.
[2021-10-02 15:30] LABS: FOLATE 5.61 ng/mL (5.90 - >24.8)
[2021-10-02] MEDS: MULTIVITAMIN W/MINERALS TABLET PO SCH (16:56)
--- NOTE | 2021-10-02 19:26 | PROVIDER PROGRESS NOTE ---
Subjective - Prog Note Date Prog Note Date: 10/02/21 - Subjective Subjective: His biggest complaint right now is right knee pain. Decision going on for a few weeks. He denies any trauma. He does not feel short of breath. Still has a cough. He does complain of pain at the site of the chest tube. Current Medications - Current Medications Current Medications: Active Medications Acetaminophen (Acetaminophen 325 Mg Tablet) 650 mg PO Q4HR PRN PRN Reason: Pain 1 to 4 Last Admin: 10/02/21 08:30 Dose: 650 mg Documented by: Ceftriaxone Sodium 2 gm/ (Sodium Chloride) 100 mls @ 200 mls/hr IV DAILY [facility] Last Infusion: 10/02/21 09:25 Dose: Infused Documented by: Metronidazole (Flagyl 500 Mg/100 Ml) 500 mg in 100 mls @ 100 mls/hr IV Q8H [facility] Last Infusion: 10/02/21 14:20 Dose: Infused Documented by: Azithromycin 500 mg/ Sodium (Chloride) 250 mls @ 250 mls/hr IV 1000 [facility] Stop: 10/04/21 10:59 Last Infusion: 10/02/21 12:35 Dose: Infused Documented by: Multivitamins/Minerals (Multivitamin W/Minerals Tablet) 1 tab PO DAILYWM [facility] Last Admin: 10/02/21 16:56 Dose: 1 tab Documented by: Ondansetron HCl (Ondansetron Odt 4 Mg Tablet) 4 mg TL Q6HR PRN PRN Reason: Nausea / Vomiting Ondansetron HCl (Ondansetron 4 Mg/2 Ml Vial) 4 mg IVP Q6HR PRN PRN Reason: Nausea / Vomiting Last Admin: 10/02/21 11:44 Dose: 4 mg Documented by: Oxycodone HCl (Oxycodone 5 Mg Tablet) 5 mg PO Q4HR PRN PRN Reason: Pain 5 to 7 Sodium Chloride (Sodium Chloride Flush 0.9% 10 Ml Syringe) 10 ml IVP PRN PRN PRN Reason: NEEDED PER PROVIDER ORDERS Last Admin: 10/02/21 11:44 Dose: 10 ml Documented by: Sodium Chloride (Sodium Chloride Flush 0.9% 10 Ml Syringe) 10 ml IVP 0 100,0900,1700 [facility] Last Admin: 10/02/21 16:37 Dose: Not Given Documented by: allopurinoL [Allopurinol] 100 mg PO DAILY PRN 08/30/14 Ibuprofen [Motrin] 800 mg PO DAILY 10/02/21 LORazepam [Ativan] 0.5 mg PO DAILY PRN 10/02/21 Potassium Chloride [Klor-Con M20] 20 meq PO DAILY 10/02/21 Objective - Vital Signs/Intake & Output Reviewed Vital Signs: Yes Vital Signs: Vital Signs x48h Temp Pulse Resp BP Pulse Ox 10/02/21 15:47 36.6 C 97 18 93/58 L 100 10/02/21 11:34 36.7 C 93 17 100/60 94 Intake & Output: Intake & Output 09/29/21 09/30/21 10/01/21 10/02/21 23:59 23:59 23:59 23:59 Intake Total 276.034 9834.000 Output Total 2465 Balance 300.000 915.000 - Objective General Appearance: positive: No acute distress, Alert Eyes Bilateral: positive: Normal inspection, Conjunctivae nml ENT: positive: ENT inspection nml Neck: positive: Nml inspection Respiratory: positive: No respiratory distress, Other (Chest tube in place over lateral aspect of the left chest wall. Diminished in right bases.) Cardiovascular: positive: Regular rate & rhythm. negative: Tachycardia, Systolic murmur Abdomen: positive: Non-tender, No distention. negative: Tenderness Skin: positive: Warm, Dry Extremities: positive: No pedal edema, Other (There is no obvious effusion of the right knee joint. It is tender over the lateral and medial aspect. No obvious bruising.). negative: Joint swelling Neurologic/Psychiatric: positive: Motor nml. negative: Disoriented to person, Disoriented to place, Disoriented to time - Lab Results Fish Bones: 10/02/21 04:45 10/02/21 04:45 Other Labs: Lab Results x24hrs 10/02/21 10/02/21 10/02/21 Range/Units 13:00 04:45 04:45 WBC (4.8-10.8) x10^3/uL RBC (4.70-6.10) 10^6/uL Hgb (14.0-18.0) g/dL Hct (42.0-52.0) % MCV (80.0-94.0) fL MCH (27.0-31.0) pg MCHC (32.0-36.0) g/dL RDW (12.0-15.0) % Plt Count (130-450) 10^3/uL MPV (7.4-11.4) fL Neut # (Auto) Lymph # (Auto) [place] # (Auto) Eos # (Auto) Baso # (Auto) Absolute Nucleated RBC Total Counted Band Neuts % (Manual) (0 - 10) % Abnorm Lymph % (Manual) % Nucleated RBC % Neutrophils # (Manual) (1.5-6.6) 10^3/uL Lymphocytes # (Manual) (1.5-3.5) 10^3/uL Monocytes # (Manual) (0.0-1.0) 10^3/uL Eosinophils # (Manual) (0-0.7) 10^3/uL Basophils # (Manual) (0-0.1) 10^3/uL Differential Comment WBC Morphology (NORMAL) Platelet Estimate (NORMAL) Platelet Morphology (NORMAL) RBC Morph Micro Appear (NORMAL) PT (9.9-12.6) secs INR (0.8-1.2) Sodium 132 L (135-145) mmol/L Potassium 3.2 L (3.5-5.0) mmol/L Chloride 96 L (101-111) mmol/L Carbon Dioxide 27 (21-32) mmol/L Anion Gap 9.0 (6-13) BUN 9 (6-20) mg/dL Creatinine 0.5 L (0.6-1.2) mg/dL Estimated GFR (MDRD) 167 (>89) Glucose 139 H (70-100) mg/dL Lactic Acid (0.5-2.2) mmol/L Calcium 7.6 L (8.5-10.3) mg/dL Magnesium (1.7-2.8) mg/dL Lactate Dehydrogenase (91-225) IU/L C-Reactive Protein 9.6 H (0-1.0) mg/dL Prostate Specific Ag (0.000-2.000) ng/mL Free PSA (0.16-2.81) ng/mL % Free PSA Calc Vitamin B12 645 (180-914) pg/mL Folate 5.61 L (5.90 - >24.8) ng/mL Urine Color DARK YELLOW Urine Clarity CLEAR (CLEAR) Urine pH 6.5 (5.0-7.5) PH Ur Specific [place] 1.020 (1.002-1.030) Urine Protein TRACE (NEGATIVE) mg/dL Urine Glucose (UA) NEGATIVE (NEGATIVE) mg/dL Urine Ketones NEGATIVE (NEGATIVE) mg/dL Urine Occult Blood SMALL H (NEGATIVE) Urine Nitrite POSITIVE H (NEGATIVE) Urine Bilirubin NEGATIVE (NEGATIVE) Urine Urobilinogen 2 H (NORMAL) E.U./dL Ur Leukocyte Esterase NEGATIVE (NEGATIVE) Urine RBC 0-5 (0-5) /HPF Urine WBC 0-3 (0-3) /HPF Urine WBC Clumps NONE SEEN Ur Epithelial Cells None Seen (<= Few) /HPF Ur Squamous Epith Cells RARE Squamous (<= Few) Urine Bacteria None Seen (None Seen) /HPF Ur Microscopic Review INDICATED Urine Culture Comments INDICATED Fluid Source Fluid Color Fluid Clarity Fluid WBC /mm^3 Fluid RBC /mm^3 Fluid Neutrophils % Fluid Lymphocytes % % Fluid Monocytes % % Fluid Macrophages % % Fld Mesothelial Cell % % Nasal Adenovirus (PCR) Nasal B. parapertussis DNA (PCR) Nasal Coronavir 229E PCR Nasal Coronavir HKU1 PCR Nasal Coronavir NL63 PCR Nasal Coronavir OC43 PCR Nasal Enterovir/Rhinovir PCR Nasal Influenza B PCR Nasal Influenza A PCR Nasal Parainfluen 1 PCR Nasal Parainfluen 2 PCR Nasal Parainfluen 3 PCR Nasal Parainfluen 4 PCR Nasal RSV (PCR) Nasal B.pertussis DNA PCR Nasal C.pneumoniae (PCR) [place] Human Metapneumo PCR Nasal M.pneumoniae (PCR) Nasal SARS-CoV-2 (PCR) Ethyl Alcohol mg/dL 10/02/21 10/01/21 10/01/21 Range/Units 04:45 21:41 21:20 WBC 17.9 H (4.8-10.8) x10^3/uL RBC 2.92 L (4.70-6.10) 10^6/uL Hgb 11.1 L (14.0-18.0) g/dL Hct 31.7 L (42.0-52.0) % MCV 108.6 H (80.0-94.0) fL MCH 38.0 H (27.0-31.0) pg MCHC 35.0 (32.0-36.0) g/dL RDW 13.2 (12.0-15.0) % Plt Count 165 (130-450) 10^3/uL MPV 10.2 (7.4-11.4) fL Neut # (Auto) Not Reportable Lymph # (Auto) Not Reportable [place] # (Auto) Not Reportable Eos # (Auto) Not Reportable Baso # (Auto) Not Reportable Absolute Nucleated RBC Not Reportable Total Counted 100 Band Neuts % (Manual) 0 (0 - 10) % Abnorm Lymph % (Manual) 0 % Nucleated RBC % Not Reportable Neutrophils # (Manual) 15.6 H (1.5-6.6) 10^3/uL Lymphocytes # (Manual) 1.1 L (1.5-3.5) 10^3/uL Monocytes # (Manual) 1.1 H (0.0-1.0) 10^3/uL Eosinophils # (Manual) 0.2 (0-0.7) 10^3/uL Basophils # (Manual) 0.0 (0-0.1) 10^3/uL Differential Comment MANUAL DIFFERENTIAL WBC Morphology NORMAL APPEARANCE (NORMAL) Platelet Estimate NORMAL (130-450,000) (NORMAL) Platelet Morphology NORMAL APPEARANCE (NORMAL) RBC Morph Micro Appear NORMAL APPEARANCE (NORMAL) PT (9.9-12.6) secs INR (0.8-1.2) Sodium (135-145) mmol/L Potassium (3.5-5.0) mmol/L Chloride (101-111) mmol/L Carbon Dioxide (21-32) mmol/L Anion Gap (6-13) BUN (6-20) mg/dL Creatinine (0.6-1.2) mg/dL Estimated GFR (MDRD) (>89) Glucose (70-100) mg/dL Lactic Acid 0.8 (0.5-2.2) mmol/L Calcium (8.5-10.3) mg/dL Magnesium (1.7-2.8) mg/dL Lactate Dehydrogenase (91-225) IU/L C-Reactive Protein (0-1.0) mg/dL Prostate Specific Ag (0.000-2.000) ng/mL Free PSA (0.16-2.81) ng/mL % Free PSA Calc Vitamin B12 (180-914) pg/mL Folate (5.90 - >24.8) ng/mL Urine Color Urine Clarity (CLEAR) Urine pH (5.0-7.5) PH Ur Specific [place] (1.002-1.030) Urine Protein (NEGATIVE) mg/dL Urine Glucose (UA) (NEGATIVE) mg/dL Urine Ketones (NEGATIVE) mg/dL Urine Occult Blood (NEGATIVE) Urine Nitrite (NEGATIVE) Urine Bilirubin (NEGATIVE) Urine Urobilinogen (NORMAL) E.U./dL Ur Leukocyte Esterase (NEGATIVE) Urine RBC (0-5) /HPF Urine WBC (0-3) /HPF Urine WBC Clumps Ur Epithelial Cells (<= Few) /HPF Ur Squamous Epith Cells (<= Few) Urine Bacteria (None Seen) /HPF Ur Microscopic Review Urine Culture Comments Fluid Source PLEURAL Fluid Color YELLOW Fluid Clarity HAZY Fluid WBC 282 /mm^3 Fluid RBC 2000 /mm^3 Fluid Neutrophils % Not Reportable Fluid Lymphocytes % 20 % Fluid Monocytes % 35 % Fluid Macrophages % 38 % Fld Mesothelial Cell % 7 % Nasal Adenovirus (PCR) Nasal B. parapertussis DNA (PCR) Nasal Coronavir 229E PCR Nasal Coronavir HKU1 PCR Nasal Coronavir NL63 PCR Nasal Coronavir OC43 PCR Nasal Enterovir/Rhinovir PCR Nasal Influenza B PCR Nasal Influenza A PCR Nasal Parainfluen 1 PCR Nasal Parainfluen 2 PCR Nasal Parainfluen 3 PCR Nasal Parainfluen 4 PCR Nasal RSV (PCR) Nasal B.pertussis DNA PCR Nasal C.pneumoniae (PCR) Caesar Human Metapneumo PCR Nasal M.pneumoniae (PCR) Nasal SARS-CoV-2 (PCR) Ethyl Alcohol mg/dL 10/01/21 10/01/21 10/01/21 Range/Units 20:43 20:18 18:35 WBC (4.8-10.8) x10^3/uL RBC (4.70-6.10) 10^6/uL Hgb (14.0-18.0) g/dL Hct (42.0-52.0) % MCV (80.0-94.0) fL MCH (27.0-31.0) pg MCHC (32.0-36.0) g/dL RDW (12.0-15.0) % Plt Count (130-450) 10^3/uL MPV (7.4-11.4) fL Neut # (Auto) Lymph # (Auto) [place] # (Auto) Eos # (Auto) Baso # (Auto) Absolute Nucleated RBC Total Counted Band Neuts % (Manual) (0 - 10) % Abnorm Lymph % (Manual) % Nucleated RBC % Neutrophils # (Manual) (1.5-6.6) 10^3/uL Lymphocytes # (Manual) (1.5-3.5) 10^3/uL Monocytes # (Manual) (0.0-1.0) 10^3/uL Eosinophils # (Manual) (0-0.7) 10^3/uL Basophils # (Manual) (0-0.1) 10^3/uL Differential Comment WBC Morphology (NORMAL) Platelet Estimate (NORMAL) Platelet Morphology (NORMAL) RBC Morph Micro Appear (NORMAL) PT 16.3 H (9.9-12.6) secs INR 1.5 H (0.8-1.2) Sodium (135-145) mmol/L Potassium (3.5-5.0) mmol/L Chloride (101-111) mmol/L Carbon Dioxide (21-32) mmol/L Anion Gap (6-13) BUN (6-20) mg/dL Creatinine (0.6-1.2) mg/dL Estimated GFR (MDRD) (>89) Glucose (70-100) mg/dL Lactic Acid (0.5-2.2) mmol/L Calcium (8.5-10.3) mg/dL Magnesium (1.7-2.8) mg/dL Lactate Dehydrogenase (91-225) IU/L C-Reactive Protein (0-1.0) mg/dL Prostate Specific Ag < 0.008 (0.000-2.000) ng/mL Free PSA 0.010 L (0.16-2.81) ng/mL % Free PSA Calc TNP Vitamin B12 (180-914) pg/mL Folate (5.90 - >24.8) ng/mL Urine Color Urine Clarity (CLEAR) Urine pH (5.0-7.5) PH Ur Specific [place] (1.002-1.030) Urine Protein (NEGATIVE) mg/dL Urine Glucose (UA) (NEGATIVE) mg/dL Urine Ketones (NEGATIVE) mg/dL Urine Occult Blood (NEGATIVE) Urine Nitrite (NEGATIVE) Urine Bilirubin (NEGATIVE) Urine Urobilinogen (NORMAL) E.U./dL Ur Leukocyte Esterase (NEGATIVE) Urine RBC (0-5) /HPF Urine WBC (0-3) /HPF Urine WBC Clumps Ur Epithelial Cells (<= Few) /HPF Ur Squamous Epith Cells (<= Few) Urine Bacteria (None Seen) /HPF Ur Microscopic Review Urine Culture Comments Fluid Source Fluid Color Fluid Clarity Fluid WBC /mm^3 Fluid RBC /mm^3 Fluid Neutrophils % Fluid Lymphocytes % % Fluid Monocytes % % Fluid Macrophages % % Fld Mesothelial Cell % % Nasal Adenovirus (PCR) NOT DETECTED Nasal B. parapertussis DNA (PCR) NOT DETECTED Nasal Coronavir 229E PCR NOT DETECTED Nasal Coronavir HKU1 PCR NOT DETECTED Nasal Coronavir NL63 PCR NOT DETECTED Nasal Coronavir OC43 PCR NOT DETECTED Nasal Enterovir/Rhinovir PCR NOT DETECTED Nasal Influenza B PCR NOT DETECTED Nasal Influenza A PCR NOT DETECTED Nasal Parainfluen 1 PCR NOT DETECTED Nasal Parainfluen 2 PCR NOT DETECTED Nasal Parainfluen 3 PCR NOT DETECTED Nasal Parainfluen 4 PCR NOT DETECTED Nasal RSV (PCR) NOT DETECTED Nasal B.pertussis DNA PCR NOT DETECTED Nasal C.pneumoniae (PCR) NOT DETECTED Caesar Human Metapneumo PCR NOT DETECTED Nasal M.pneumoniae (PCR) NOT DETECTED Nasal SARS-CoV-2 (PCR) NOT DETECTED Ethyl Alcohol mg/dL 10/01/21 10/01/21 10/01/21 Range/Units 18:35 18:35 18:35 WBC (4.8-10.8) x10^3/uL RBC (4.70-6.10) 10^6/uL Hgb (14.0-18.0) g/dL Hct (42.0-52.0) % MCV (80.0-94.0) fL MCH (27.0-31.0) pg MCHC (32.0-36.0) g/dL RDW (12.0-15.0) % Plt Count (130-450) 10^3/uL MPV (7.4-11.4) fL Neut # (Auto) Lymph # (Auto) [place] # (Auto) Eos # (Auto) Baso # (Auto) Absolute Nucleated RBC Total Counted Band Neuts % (Manual) (0 - 10) % Abnorm Lymph % (Manual) % Nucleated RBC % Neutrophils # (Manual) (1.5-6.6) 10^3/uL Lymphocytes # (Manual) (1.5-3.5) 10^3/uL Monocytes # (Manual) (0.0-1.0) 10^3/uL Eosinophils # (Manual) (0-0.7) 10^3/uL Basophils # (Manual) (0-0.1) 10^3/uL Differential Comment WBC Morphology (NORMAL) Platelet Estimate (NORMAL) Platelet Morphology (NORMAL) RBC Morph Micro Appear (NORMAL) PT (9.9-12.6) secs INR (0.8-1.2) Sodium (135-145) mmol/L Potassium (3.5-5.0) mmol/L Chloride (101-111) mmol/L Carbon Dioxide (21-32) mmol/L Anion Gap (6-13) BUN (6-20) mg/dL Creatinine (0.6-1.2) mg/dL Estimated GFR (MDRD) (>89) Glucose (70-100) mg/dL Lactic Acid (0.5-2.2) mmol/L Calcium (8.5-10.3) mg/dL Magnesium 1.7 (1.7-2.8) mg/dL Lactate Dehydrogenase 118 (91-225) IU/L C-Reactive Protein (0-1.0) mg/dL Prostate Specific Ag (0.000-2.000) ng/mL Free PSA (0.16-2.81) ng/mL % Free PSA Calc Vitamin B12 (180-914) pg/mL Folate (5.90 - >24.8) ng/mL Urine Color Urine Clarity (CLEAR) Urine pH (5.0-7.5) PH Ur Specific [place] (1.002-1.030) Urine Protein (NEGATIVE) mg/dL Urine Glucose (UA) (NEGATIVE) mg/dL Urine Ketones (NEGATIVE) mg/dL Urine Occult Blood (NEGATIVE) Urine Nitrite (NEGATIVE) Urine Bilirubin (NEGATIVE) Urine Urobilinogen (NORMAL) E.U./dL Ur Leukocyte Esterase (NEGATIVE) Urine RBC (0-5) /HPF Urine WBC (0-3) /HPF Urine WBC Clumps Ur Epithelial Cells (<= Few) /HPF Ur Squamous Epith Cells (<= Few) Urine Bacteria (None Seen) /HPF Ur Microscopic Review Urine Culture Comments Fluid Source Fluid Color Fluid Clarity Fluid WBC /mm^3 Fluid RBC /mm^3 Fluid Neutrophils % Fluid Lymphocytes % % Fluid Monocytes % % Fluid Macrophages % % Fld Mesothelial Cell % % Nasal Adenovirus (PCR) Nasal B. parapertussis DNA (PCR) Nasal Coronavir 229E PCR Nasal Coronavir HKU1 PCR Nasal Coronavir NL63 PCR Nasal Coronavir OC43 PCR Nasal Enterovir/Rhinovir PCR Nasal Influenza B PCR Nasal Influenza A PCR Nasal Parainfluen 1 PCR Nasal Parainfluen 2 PCR Nasal Parainfluen 3 PCR Nasal Parainfluen 4 PCR Nasal RSV (PCR) Nasal B.pertussis DNA PCR Nasal C.pneumoniae (PCR) Caesar Human Metapneumo PCR Nasal M.pneumoniae (PCR) Nasal SARS-CoV-2 (PCR) Ethyl Alcohol < 5.0 mg/dL ABX Reporting Has patient been on IV antibiotics over the past 48 hours?: Yes Assessment/Plan - Problem List (1) Parapneumonic effusion Impression: This was evident on CT on admission. This was associated with a consolidation and the concern was for a parapneumonic effusion. Older 4 L were drained via chest tube in the emergency department. There was no obvious pus or blood to suggest a hemothorax or empyema. His white count is increased today but I suspect this may be reactive. He remains on ceftriaxone and Flagyl empirically. Pleural fluid studies were predominantly monocytic with some lymphocytes and macrophages. No neutrophils were reported. The WBC was only 282. Preliminary culture has no growth to date but there are moderate WBCs and rare gram positive cocci. LDH, protein, pH, glucose, and cytology are pending. I did asked the lab to send for a creatinine from the pleural fluid studies as well and this was sent to [facility] as this is only lab that can run it. The plan will be to continue the chest tube to suction. We will obtain daily chest x- rays. Continue antibiotics until his white count improves. Appreciate general surgery input regarding chest tube management. (2) Prostate cancer Impression: This is in remission per the patient. He was treated with radiation therapy. His oncologist is at [place]. PSA was not detectable. (3) Hypokalemia Impression: This is improved but ongoing. We'll continue with potassium supplementation. (4) Knee pain, right anterior Impression: The etiology of this is not clear. Imaging was unremarkable. His physical exam does reveal tenderness over the medial and lateral aspects but no obvious erythema or bruising. We'll treat this pain with Tylenol and ibuprofen.
[2021-10-02] MEDS: oxyCODONE 5 MG TABLET PO PRN (19:37)
[2021-10-02] MEDS ORDERED: diphenhydrAMINE 25 MG CAPSULE PO PRN (22:49)
--- NOTE | 2021-10-03 01:17 | XRAY Report ---
PROCEDURE: Chest 1 View X-Ray INDICATIONS: Chest wall crepitus. TECHNIQUE: One view of the chest was acquired. COMPARISON: 10/02/2021. FINDINGS: Surgical changes and devices: Right-sided chest tube is stable. Suture anchors in the right humeral h ead are stable. Lungs and pleura: No pleural effusions or pneumothorax. Focal opacity in the right lung base has dec reased in size. New opacity in the left costophrenic angle. Mediastinum: Mediastinal contours appear normal. Heart size is normal. Bones and chest wall: No suspicious bony lesions. Overlying soft tissues appear unremarkable. IMPRESSION: 1. Right-sided chest tube is stable. 2. Opacity right lung base decreased in size and represent atelectasis, aspiration or pneumonia. 3. New small opacity in the left lung base concerning for atelectasis versus pneumonia. Reviewed by: Nathalie Edward MD, PhD on 10/03/2021 1:15 AM PST Approved by: Nathalie dEward MD, PhD on 10/03/2021 1:15 AM PST Station ID: [id number]
[2021-10-03] MEDS: oxyCODONE 5 MG TABLET PO PRN ×2 (01:27→16:42)
[2021-10-03] MEDS: SODIUM CHLORIDE FLUSH 0.9% 10 ML SYRINGE IVP SCH ×3 (02:07→16:42)
[2021-10-03] MEDS: metroNIDAZOLE 500 MG/100 ML 500 MG/100 ML BAG IV SCH ×3 (05:13→20:33)
[2021-10-03 05:48] LABS: BASOPHILS # (AUTO) 0.1 10^3/uL (0.0-0.1); BASOPHILS % (AUTO) 0.4 %; EOSINOPHILS # (AUTO) 0.3 10^3/uL (0.0-0.7); HCT - HEMATOCRIT 34.3 % (42.0-52.0); HGB - HEMOGLOBIN 11.7 g/dL (14.0-18.0); LYMPHOCYTES # (AUTO) 1.5 10^3/uL (1.5-3.5); LYMPHOCYTES % (AUTO) 10.7 %; MEAN CORPUSCULAR HEMOGLOBIN 37.5 pg (27.0-31.0); MEAN CORPUSCULAR HGB CONC 34.1 g/dL (32.0-36.0); MEAN CORPUSCULAR VOLUME 109.9 fL (80.0-94.0); MEAN PLATELET VOLUME 10.2 fL (7.4-11.4); MONOCYTES # (AUTO) 1.2 10^3/uL (0.0-1.0); MONOCYTES % (AUTO) 8.5 %; PLT - PLATELET COUNT 196 10^3/uL (130-450); RED BLOOD COUNT 3.12 10^6/uL (4.70-6.10); RED CELL DISTRIBUTION WIDTH 13.2 % (12.0-15.0); WHITE BLOOD COUNT 14.2 x10^3/uL (4.8-10.8)
[2021-10-03 06:09] LABS: CALCIUM 7.7 mg/dL (8.5-10.3); CREATININE 0.5 mg/dL (0.6-1.2); CRP - C-REACTIVE PROTEIN 10.9 mg/dL (0-1.0); POTASSIUM 3.6 mmol/L (3.5-5.0)
--- NOTE | 2021-10-03 08:19 | XRAY Report ---
PROCEDURE: Chest 1 View X-Ray INDICATIONS: Follow up effusion. Chest tube. TECHNIQUE: One view of the chest was acquired. COMPARISON: 10/03/21 FINDINGS: Surgical changes and devices: Large bore right chest tube. Lungs and pleura: No pleural effusions or pneumothorax. Focal atelectasis versus possible consolidat ion, right lung base. Mediastinum: Mediastinal contours appear normal. Heart size is normal. Bones and chest wall: No suspicious bony lesions. Overlying soft tissues appear unremarkable. IMPRESSION: 1. Right chest tube in place. 2. Atelectasis versus consolidation, right lung base. Reviewed by: Sung Epstein MD on 10/03/2021 8:17 AM PST Approved by: Sung Epstein MD on 10/03/2021 8:17 AM PST Station ID: [id number]
[2021-10-03] MEDS: MULTIVITAMIN W/MINERALS TABLET PO SCH (08:23)
[2021-10-03] MEDS: cefTRIAXone 2 GM in SODIUM CHLORIDE 0.9% MINIBAG 100 ML IV SCH (08:25)
--- NOTE | 2021-10-03 08:37 | PROVIDER PROGRESS NOTE ---
Assessment/Plan - Problem List (1) Parapneumonic effusion Assessment/Plan: Etiology undetermined. Suspect infection versus malignancy. Patient had a chest tube placed in the ED. General surgery managing chest tube. Awaiting fluid analysis which was sent out. On Rocephin and Flagyl empirically. Will continue. Blood cultures are no growth to date x2 days. White blood count continues to improve steadily. White blood cell count was 11.2 today. Yesterday it was 14.2. (2) Protein-calorie malnutrition, severe Assessment/Plan: Patient has significant muscle wasting, loss of subcutaneous fat. Nutrition intake is less than 50% of recommended intake for greater than 2 weeks. He has experienced a greater than 11% weight loss in 6 month This is likely related to patient's prostate cancer and treatment for prostate cancer. Nutrition following. Will appreciate their recommendations. (3) Prostate cancer Assessment/Plan: This is in remission per the patient. He was treated with radiation therapy. His oncologist is at [place]. PSA was not detectable. (4) Knee pain, right anterior Assessment/Plan: The etiology of this is not clear. Imaging was unremarkable. His physical exam does reveal tenderness over the medial and lateral aspects but no obvious erythema or bruising. We'll treat this pain with Tylenol and ibuprofen. - Current Meds Current Meds: Current Medications Generic Name Dose Route Start Last Admin Trade Name Freq PRN Reason Stop Dose Admin Acetaminophen 650 mg 10/01/21 21:34 10/02/21 08:30 Acetaminophen 325 Mg Tablet PO 650 mg Q4HR PRN Administration Pain 1 to 4 Ceftriaxone Sodium 2 gm/ 100 mls @ 200 mls/hr 10/02/21 09:00 10/03/21 08:25 Sodium Chloride IV 200 mls/hr DAILY BRENDA Administration Metronidazole 500 mg in 100 mls @ 100 mls/hr 10/02/21 05:00 10/03/21 07:00 Flagyl 500 Mg/100 Ml IV Infused Q8H BRENDA Infusion Azithromycin 500 mg/ Sodium 250 mls @ 250 mls/hr 10/02/21 11:00 10/02/21 12:35 Chloride IV 10/04/21 10:59 Infused 1000 BRENDA Infusion Ondansetron HCl 4 mg 10/01/21 21:34 10/02/21 11:44 Ondansetron 4 Mg/2 Ml Vial IVP 4 mg Q6HR PRN Administration Nausea / Vomiting Oxycodone HCl 5 mg 10/01/21 21:34 10/03/21 01:27 Oxycodone 5 Mg Tablet PO 5 mg Q4HR PRN Administration Pain 5 to 7 Sodium Chloride 10 ml 10/01/21 21:34 10/02/21 11:44 Sodium Chloride Flush 0.9% 10 Ml Syringe IVP 10 ml PRN PRN Administration NEEDED PER PROVIDER ORDERS Sodium Chloride 10 ml 10/02/21 01:00 10/03/21 08:25 Sodium Chloride Flush 0.9% 10 Ml Syringe IVP 10 ml 0100,0900,1700 BRENDA Administration - Lab Result Fish Bone Diagrams: 10/04/21 05:43 10/04/21 05:43 - Additional Planning My Orders: My Active Orders 10/02/21 11:00 Azithromycin Inj [Zithromax Inj] 500 mg Sodium Chloride 0.9% [Normal Saline 0.9%] 250 ml IV 1000 10/02/21 12:05 [place] Insertion [RC] QSHIFT 10/02/21 Dinner Regular Diet [DIET] 10/04/21 08:00 Vitamin [Trinatal Rx 1] 1 tab PO DAILYWM Subjective - Subjective Patient Reports: Other (Patient was asleep at time of visit. He appears frail/cachexic and weak. He is very malnourished. He complains of knee pain and bilateral ankle pain. There was mild crepitus on the right chest wall around the site of chest tube. Denied any other complaint) Objective Vital Signs: Vital Signs - 24 hr 10/02/21 10/02/21 10/02/21 11:34 15:47 19:34 Temperature 36.7 C 36.6 C 36.5 C Heart Rate [ 93 97 92 Brachial] Respiratory 17 18 18 Rate Blood Pressure 100/60 93/58 L 120/64 [Left Brachial artery] O2 Saturation 94 100 100 10/03/21 10/03/21 10/03/21 00:01 05:00 07:28 Temperature 36.7 C 36.7 C 36.6 C Heart Rate [ 97 110 H 108 H Brachial] Respiratory 18 18 19 Rate Blood Pressure 113/64 115/80 116/66 [Left Brachial artery] O2 Saturation 96 95 94 Oxygen O2 Source Nasal cannula I&O (Last 24 Hrs): Intake and Output Totals x24h 10/01/21 10/02/21 10/03/21 23:59 23:59 23:59 Intake Total 706.620 3079.000 1840 Output Total 3215 700 Balance 300.000 313.691 5375 General: Alert, Oriented x3, Other (Frail/ Cachexic) HEENT: PERRLA, EOMI Neck: Supple, No JVD Neuro: Alert, Non Focal, Oriented Times 3 Cardiovascular: Regular rate, No murmurs Respiratory: No respiratory distress, Wheezes (mild), Other (chest tube in place mild crepitus on right chest wall) Abdomen: Normal bowel sounds, Soft, No tenderness Extremities: No clubbing, No cyanosis, No edema, No tenderness/swelling - Results Results: Laboratory Results WBC 14.2 x10^3/uL (4.8-10.8) H 10/03/21 05:07 RBC 3.12 10^6/uL (4.70-6.10) L 10/03/21 05:07 Hgb 11.7 g/dL (14.0-18.0) L 10/03/21 05:07 Hct 34.3 % (42.0-52.0) L 10/03/21 05:07 MCV 109.9 fL (80.0-94.0) H 10/03/21 05:07 MCH 37.5 pg (27.0-31.0) H 10/03/21 05:07 MCHC 34.1 g/dL (32.0-36.0) 10/03/21 05:07 RDW 13.2 % (12.0-15.0) 10/03/21 05:07 Plt Count 196 10^3/uL (130-450) 10/03/21 05:07 MPV 10.2 fL (7.4-11.4) 10/03/21 05:07 Neut # (Auto) 11.0 10^3/uL (1.5-6.6) H 10/03/21 05:07 Lymph # (Auto) 1.5 10^3/uL (1.5-3.5) 10/03/21 05:07 [place] # (Auto) 1.2 10^3/uL (0.0-1.0) H 10/03/21 05:07 Eos # (Auto) 0.3 10^3/uL (0.0-0.7) 10/03/21 05:07 Baso # (Auto) 0.1 10^3/uL (0.0-0.1) 10/03/21 05:07 Absolute Nucleated RBC 0.00 x10^3/uL 10/03/21 05:07 Total Counted 100 10/02/21 04:45 Band Neuts % (Manual) 0 % (0-10) 10/02/21 04:45 Abnorm Lymph % (Manual) 0 % 10/02/21 04:45 Nucleated RBC % 0.0 /100WBC 10/03/21 05:07 Neutrophils # (Manual) 15.6 10^3/uL (1.5-6.6) H 10/02/21 04:45 Lymphocytes # (Manual) 1.1 10^3/uL (1.5-3.5) L 10/02/21 04:45 Monocytes # (Manual) 1.1 10^3/uL (0.0-1.0) H 10/02/21 04:45 Eosinophils # (Manual) 0.2 10^3/uL (0-0.7) 10/02/21 04:45 Basophils # (Manual) 0.0 10^3/uL (0-0.1) 10/02/21 04:45 Differential Comment MANUAL DIFFERENTIAL 10/02/21 04:45 WBC Morphology NORMAL APPEARANCE (NORMAL) 10/02/21 04:45 Platelet Estimate NORMAL (130-450,000) (NORMAL) 10/02/21 04:45 Platelet Morphology NORMAL APPEARANCE (NORMAL) 10/02/21 04:45 RBC Morph Micro Appear NORMAL APPEARANCE (NORMAL) 10/02/21 04:45 ESR 59 mm/Hr (0-20) H 10/01/21 18:35 PT 16.3 secs (9.9-12.6) H 10/01/21 20:43 INR 1.5 (0.8-1.2) H 10/01/21 20:43 Sodium 132 mmol/L (135-145) L 10/03/21 05:07 Potassium 3.6 mmol/L (3.5-5.0) 10/03/21 05:07 Chloride 96 mmol/L (101-111) L 10/03/21 05:07 Carbon Dioxide 29 mmol/L (21-32) 10/03/21 05:07 Anion Gap 7.0 (6-13) 10/03/21 05:07 BUN 11 mg/dL (6-20) 10/03/21 05:07 Creatinine 0.5 mg/dL (0.6-1.2) L 10/03/21 05:07 Estimated GFR (MDRD) 167 (>89) 10/03/21 05:07 Glucose 118 mg/dL (70-100) H 10/03/21 05:07 Lactic Acid 0.8 mmol/L (0.5-2.2) 10/01/21 21:41 Calcium 7.7 mg/dL (8.5-10.3) L 10/03/21 05:07 Magnesium 1.7 mg/dL (1.7-2.8) 10/01/21 18:35 Total Bilirubin 2.5 mg/dL (0.2-1.0) H 10/01/21 18:35 AST 30 IU/L (10-42) 10/01/21 18:35 ALT < 10 IU/L (10-60) L 10/01/21 18:35 Alkaline Phosphatase 128 IU/L (42-121) H 10/01/21 18:35 Lactate Dehydrogenase 118 IU/L (91-225) 10/01/21 18:35 Troponin I High Sens 12.6 ng/L (2.3-19.7) 10/01/21 18:35 C-Reactive Protein 10.9 mg/dL (0-1.0) H 10/03/21 05:07 Total Protein 7.6 g/dL (6.7-8.2) 10/01/21 18:35 Albumin 2.3 g/dL (3.2-5.5) L 10/01/21 18:35 Globulin 5.3 g/dL (2.1-4.2) H 10/01/21 18:35 Albumin/Globulin Ratio 0.4 (1.0-2.2) L 10/01/21 18:35 Lipase 16 U/L (22-51) L 10/01/21 18:35 Prostate Specific Ag < 0.008 ng/mL (0.000-2.000) 10/01/21 18:35 Free PSA 0.010 ng/mL (0.16-2.81) L 10/01/21 18:35 % Free PSA Calc TNP 10/01/21 18:35 Vitamin B12 645 pg/mL (180-914) 10/02/21 04:45 Folate 5.61 ng/mL (5.90 - >24.8) L 10/02/21 04:45 Urine Color DARK YELLOW 10/02/21 13:00 Urine Clarity CLEAR (CLEAR) 10/02/21 13:00 Urine pH 6.5 PH (5.0-7.5) 10/02/21 13:00 Ur Specific [place] 1.020 (1.002-1.030) 10/02/21 13:00 Urine Protein TRACE mg/dL (NEGATIVE) 10/02/21 13:00 Urine Glucose (UA) NEGATIVE mg/dL (NEGATIVE) 10/02/21 13:00 Urine Ketones NEGATIVE mg/dL (NEGATIVE) 10/02/21 13:00 Urine Occult Blood SMALL (NEGATIVE) H 10/02/21 13:00 Urine Nitrite POSITIVE (NEGATIVE) H 10/02/21 13:00 Urine Bilirubin NEGATIVE (NEGATIVE) 10/02/21 13:00 Urine Urobilinogen 2 E.U./dL (NORMAL) H 10/02/21 13:00 Ur Leukocyte Esterase NEGATIVE (NEGATIVE) 10/02/21 13:00 Urine RBC 0-5 /HPF (0-5) 10/02/21 13:00 Urine WBC 0-3 /HPF (0-3) 10/02/21 13:00 Urine WBC Clumps NONE SEEN 10/02/21 13:00 Ur Epithelial Cells None Seen /HPF (<= Few) 10/02/21 13:00 Ur Squamous Epith Cells RARE Squamous (<= Few) 10/02/21 13:00 Urine Bacteria None Seen /HPF (None Seen) 10/02/21 13:00 Ur Microscopic Review INDICATED 10/02/21 13:00 Urine Culture Comments INDICATED 10/02/21 13:00 Fluid Source PLEURAL 10/01/21 21:20 Fluid Color YELLOW 10/01/21 21:20 Fluid Clarity HAZY 10/01/21 21:20 Fluid WBC 282 /mm^3 10/01/21 21:20 Fluid RBC 2000 /mm^3 10/01/21 21:20 Fluid Neutrophils % Not Reportable 10/01/21 21:20 Fluid Lymphocytes % 20 % 10/01/21 21:20 Fluid Monocytes % 35 % 10/01/21 21:20 Fluid Macrophages % 38 % 10/01/21 21:20 Fld Mesothelial Cell % 7 % 10/01/21 21:20 Nasal Adenovirus (PCR) NOT DETECTED 10/01/21 20:18 Nasal B. parapertussis DNA (PCR) NOT DETECTED 10/01/21 20:18 Nasal Coronavir 229E PCR NOT DETECTED 10/01/21 20:18 Nasal Coronavir HKU1 PCR NOT DETECTED 10/01/21 20:18 Nasal Coronavir NL63 PCR NOT DETECTED 10/01/21 20:18 Nasal Coronavir OC43 PCR NOT DETECTED 10/01/21 20:18 Nasal Enterovir/Rhinovir PCR NOT DETECTED 10/01/21 20:18 Nasal Influenza B PCR NOT DETECTED 10/01/21 20:18 Nasal Influenza A PCR NOT DETECTED 10/01/21 20:18 Nasal Parainfluen 1 PCR NOT DETECTED 10/01/21 20:18 Nasal Parainfluen 2 PCR NOT DETECTED 10/01/21 20:18 Nasal Parainfluen 3 PCR NOT DETECTED 10/01/21 20:18 Nasal Parainfluen 4 PCR NOT DETECTED 10/01/21 20:18 Nasal RSV (PCR) NOT DETECTED 10/01/21 20:18 Nasal B.pertussis DNA PCR NOT DETECTED 10/01/21 20:18 Nasal C.pneumoniae (PCR) NOT DETECTED 10/01/21 20:18 Caesar Human Metapneumo PCR NOT DETECTED 10/01/21 20:18 Nasal M.pneumoniae (PCR) NOT DETECTED 10/01/21 20:18 Nasal SARS-CoV-2 (PCR) NOT DETECTED 10/01/21 20:18 Ethyl Alcohol < 5.0 mg/dL 10/01/21 18:35 - Procedures Procedures: Procedures ENDO RECTUM POLYPECTOMY (02/23/14) ABX Reporting Has patient been on IV antibiotics over the past 48 hours?: Yes
[2021-10-03] MEDS: AZITHROMYCIN INJ 500 MG in SODIUM CHLORIDE 0.9% 250 ML IV SCH (10:07)
--- NOTE | 2021-10-03 18:12 | PROVIDER PROGRESS NOTE ---
Subjective - General Admit Date: 10/01/21 Procedure Date: 10/01/21 Post Op Days: 2 Procedure Performed: Right thoracostomy tube placement - Review of Systems All Other Systems: positive: Other - Other Other Information/Narrative: Patient developed some right chest crepitance overnight. This was not associated with any shortness of breath. Chest x-ray today is essentially unchanged. Most of the effusion has been drained and the tube remains in and adequate positi on.Minimal drainage on the dressings overnight.The patient appears comfortable and is resting. Objective - Patient Data Reviewed Vital Signs: Yes Vital Signs: Vital Signs x48h Temp Pulse Resp BP Pulse Ox 10/03/21 16:11 36.7 C 116 H 18 114/66 95 10/03/21 11:19 36.7 C 118 H 20 115/78 95 Weight: Weight 10/01/21 10/02/21 10/03/21 23:59 23:59 23:59 Weight (kg) 54 kg Intake & Output: Intake and Output Totals x24h 10/01/21 10/02/21 10/03/21 23:59 23:59 23:59 Intake Total 568.275 7112.000 2410 Output Total 3215 2205 Balance 300.000 265.000 205 - Lab Results Lab Results: 10/03/21 05:07 10/03/21 05:07 Other Lab Results: Lab Results x24hrs 10/03/21 10/03/21 Range/Units 05:07 05:07 WBC 14.2 H (4.8-10.8) x10^3/uL RBC 3.12 L (4.70-6.10) 10^6/uL Hgb 11.7 L (14.0-18.0) g/dL Hct 34.3 L (42.0-52.0) % MCV 109.9 H (80.0-94.0) fL MCH 37.5 H (27.0-31.0) pg MCHC 34.1 (32.0-36.0) g/dL RDW 13.2 (12.0-15.0) % Plt Count 196 (130-450) 10^3/uL MPV 10.2 (7.4-11.4) fL Neut # (Auto) 11.0 H (1.5-6.6) 10^3/uL Lymph # (Auto) 1.5 (1.5-3.5) 10^3/uL [place] # (Auto) 1.2 H (0.0-1.0) 10^3/uL Eos # (Auto) 0.3 (0.0-0.7) 10^3/uL Baso # (Auto) 0.1 (0.0-0.1) 10^3/uL Absolute Nucleated RBC 0.00 x10^3/uL Nucleated RBC % 0.0 /100WBC Sodium 132 L (135-145) mmol/L Potassium 3.6 (3.5-5.0) mmol/L Chloride 96 L (101-111) mmol/L Carbon Dioxide 29 (21-32) mmol/L Anion Gap 7.0 (6-13) BUN 11 (6-20) mg/dL Creatinine 0.5 L (0.6-1.2) mg/dL Estimated GFR (MDRD) 167 (>89) Glucose 118 H (70-100) mg/dL Calcium 7.7 L (8.5-10.3) mg/dL C-Reactive Protein 10.9 H (0-1.0) mg/dL - Current Medications Current Medications: Current Medications Generic Name Dose Route Start Last Admin Trade Name Freq PRN Reason Stop Dose Admin Acetaminophen 650 mg 10/01/21 21:34 10/02/21 08:30 Acetaminophen 325 Mg Tablet PO 650 mg Q4HR PRN Administration Pain 1 to 4 Ceftriaxone Sodium 2 gm/ 100 mls @ 200 mls/hr 10/02/21 09:00 10/03/21 09:00 Sodium Chloride IV Infused DAILY BRENDA Infusion Metronidazole 500 mg in 100 mls @ 100 mls/hr 10/02/21 05:00 10/03/21 13:32 Flagyl 500 Mg/100 Ml IV Infused Q8H BRENDA Infusion Azithromycin 500 mg/ Sodium 250 mls @ 250 mls/hr 10/02/21 11:00 10/03/21 11:18 Chloride IV 10/04/21 10:59 Infused 1000 BRENDA Infusion Ondansetron HCl 4 mg 10/01/21 21:34 10/02/21 11:44 Ondansetron 4 Mg/2 Ml Vial IVP 4 mg Q6HR PRN Administration Nausea / Vomiting Oxycodone HCl 5 mg 10/01/21 21:34 10/03/21 16:42 Oxycodone 5 Mg Tablet PO 5 mg Q4HR PRN Administration Pain 5 to 7 Sodium Chloride 10 ml 10/01/21 21:34 10/02/21 11:44 Sodium Chloride Flush 0.9% 10 Ml Syringe IVP 10 ml PRN PRN Administration NEEDED PER PROVIDER ORDERS Sodium Chloride 10 ml 10/02/21 01:00 10/03/21 16:42 Sodium Chloride Flush 0.9% 10 Ml Syringe IVP 10 ml 0100,0900,1700 BRENDA Administration - Physical Exam Respiratory: positive: No respiratory distress, Other (Chest tube site is clean and dressed. The tube is fluctuating as expected. There is palpable chest wall crepitance but no ballooning.) ABX Reporting Has patient been on IV antibiotics over the past 48 hours?: Yes Impression/Plan - Problem List Problem List: Right thoracostomy tube in place for large right pleural effusion and it is adequately drained.Continue with suction for now. Will consider going to waterseal tomorrow.Waterseal may contribute to crepitance so will just take on a day by day basis.
[2021-10-04] MEDS: SODIUM CHLORIDE FLUSH 0.9% 10 ML SYRINGE IVP SCH ×3 (01:28→16:19)
[2021-10-04] MEDS: metroNIDAZOLE 500 MG/100 ML 500 MG/100 ML BAG IV SCH (05:53)
[2021-10-04] MEDS: ACETAMINOPHEN 325 MG TABLET PO PRN ×3 (05:56→21:04)
[2021-10-04] MEDS: oxyCODONE 5 MG TABLET PO PRN ×3 (05:56→21:04)
[2021-10-04 06:32] LABS: BASOPHILS # (AUTO) 0.1 10^3/uL (0.0-0.1); BASOPHILS % (AUTO) 0.4 %; EOSINOPHILS # (AUTO) 0.4 10^3/uL (0.0-0.7); EOSINOPHILS % (AUTO) 3.1 %; HCT - HEMATOCRIT 34.8 % (42.0-52.0); HGB - HEMOGLOBIN 11.8 g/dL (14.0-18.0); LYMPHOCYTES # (AUTO) 1.6 10^3/uL (1.5-3.5); LYMPHOCYTES % (AUTO) 13.9 %; MEAN CORPUSCULAR HEMOGLOBIN 37.2 pg (27.0-31.0); MEAN CORPUSCULAR HGB CONC 33.9 g/dL (32.0-36.0); MEAN CORPUSCULAR VOLUME 109.8 fL (80.0-94.0); MEAN PLATELET VOLUME 10.3 fL (7.4-11.4); MONOCYTES # (AUTO) 1.3 10^3/uL (0.0-1.0); MONOCYTES % (AUTO) 11.2 %; NEUTROPHILS # (AUTO) 7.9 10^3/uL (1.5-6.6); PLT - PLATELET COUNT 256 10^3/uL (130-450); RED BLOOD COUNT 3.17 10^6/uL (4.70-6.10); RED CELL DISTRIBUTION WIDTH 13.3 % (12.0-15.0); WHITE BLOOD COUNT 11.2 x10^3/uL (4.8-10.8)
[2021-10-04 06:50] LABS: CREATININE 0.6 mg/dL (0.6-1.2); POTASSIUM 3.7 mmol/L (3.5-5.0)
[2021-10-04] MEDS: PRENATAL VITAMIN TABLET PO SCH (08:10)
[2021-10-04] MEDS: cefTRIAXone 2 GM in SODIUM CHLORIDE 0.9% MINIBAG 100 ML IV SCH (08:12)
--- NOTE | 2021-10-04 08:48 | PROVIDER PROGRESS NOTE ---
Assessment/Plan - Problem List (1) Parapneumonic effusion Assessment/Plan: Etiology undetermined. Suspect infection versus malignancy. Patient had a chest tube placed in the ED. General surgery managing chest tube. Awaiting fluid analysis which was sent out. On Rocephin and Flagyl empirically. Will continue. Blood cultures are no growth to date x2 days. White blood count continues to improve steadily. White blood cell count was 11.2 today. Yesterday it was 14.2. (2) Protein-calorie malnutrition, severe Assessment/Plan: Patient has significant muscle wasting, loss of subcutaneous fat. Nutrition intake is less than 50% of recommended intake for greater than 2 weeks. He has experienced a greater than 11% weight loss in 6 month This is likely related to patient's prostate cancer and treatment for prostate cancer. Nutrition following. Will appreciate their recommendations. (3) Prostate cancer Assessment/Plan: This is in remission per the patient. He was treated with radiation therapy. His oncologist is at [place]. PSA was not detectable. (4) Knee pain, right anterior Assessment/Plan: The etiology of this is not clear. Imaging was unremarkable. His physical exam does reveal tenderness over the medial and lateral aspects but no obvious erythema or bruising. We'll treat this pain with Tylenol and ibuprofen. - Current Meds Current Meds: Current Medications Generic Name Dose Route Start Last Admin Trade Name Freq PRN Reason Stop Dose Admin Acetaminophen 650 mg 10/01/21 21:34 10/04/21 05:56 Acetaminophen 325 Mg Tablet PO 650 mg Q4HR PRN Administration Pain 1 to 4 Ceftriaxone Sodium 2 gm/ 100 mls @ 200 mls/hr 10/02/21 09:00 10/04/21 08:12 Sodium Chloride IV 200 mls/hr DAILY BRENDA Administration Metronidazole 500 mg in 100 mls @ 100 mls/hr 10/02/21 05:00 10/04/21 07:04 Flagyl 500 Mg/100 Ml IV Infused Q8H BRENDA Infusion Azithromycin 500 mg/ Sodium 250 mls @ 250 mls/hr 10/02/21 11:00 10/03/21 11:18 Chloride IV 10/04/21 10:59 Infused 1000 BRENDA Infusion Ondansetron HCl 4 mg 10/01/21 21:34 10/02/21 11:44 Ondansetron 4 Mg/2 Ml Vial IVP 4 mg Q6HR PRN Administration Nausea / Vomiting Oxycodone HCl 5 mg 10/01/21 21:34 10/04/21 05:56 Oxycodone 5 Mg Tablet PO 5 mg Q4HR PRN Administration Pain 5 to 7 Multivit/Folic Acid/Iron 1 tab 10/04/21 08:00 10/04/21 08:10 Vitamin Tablet PO 1 tab DAILYWM BRENDA Administration Sodium Chloride 10 ml 10/01/21 21:34 10/02/21 11:44 Sodium Chloride Flush 0.9% 10 Ml Syringe IVP 10 ml PRN PRN Administration NEEDED PER PROVIDER ORDERS Sodium Chloride 10 ml 10/02/21 01:00 10/04/21 08:12 Sodium Chloride Flush 0.9% 10 Ml Syringe IVP Not Given 0100,0900,1700 BRENDA - Lab Result Fish Bone Diagrams: 10/04/21 05:43 10/04/21 05:43 - Additional Planning My Orders: My Active Orders 10/04/21 08:00 Vitamin [Trinatal Rx 1] 1 tab PO DAILYWM Subjective - Subjective Patient Reports: Other (Patient is more alert, awake and oriented today. He reported eating most of his meals today.) Objective Vital Signs: Vital Signs - 24 hr 10/03/21 10/03/21 10/03/21 11:19 16:11 19:36 Temperature 36.7 C 36.7 C 36.7 C Heart Rate [ 118 H 116 H 101 H Brachial] Respiratory 20 18 18 Rate Blood Pressure 115/78 114/66 121/62 [Left Brachial artery] Blood Pressure [Right Brachial artery] O2 Saturation 95 95 95 10/04/21 10/04/21 10/04/21 00:20 05:00 07:38 Temperature 36.7 C 36.7 C 36.7 C Heart Rate [ 109 H 113 H 106 H Brachial] Respiratory 16 20 19 Rate Blood Pressure 107/70 102/72 [Left Brachial artery] Blood Pressure 107/64 [Right Brachial artery] O2 Saturation 96 95 95 Oxygen O2 Source Room air I&O (Last 24 Hrs): Intake and Output Totals x24h 10/02/21 10/03/21 10/04/21 23:59 23:59 23:59 Intake Total 3480.000 2510 100 Output Total 3215 2305 2000 Balance 265.000 205 -1900 Comments/Notes: General: Alert, Oriented x3, Other (Frail/ Cachexic) HEENT: PERRLA, EOMI Neck: Supple, No JVD Neuro: Alert, Non Focal, Oriented Times 3 Cardiovascular: Regular rate, No murmurs Respiratory: No respiratory distress, Wheezes (mild), Other (chest tube in place mild crepitus on right chest wall) Abdomen: Normal bowel sounds, Soft, No tenderness Extremities: No clubbing, No cyanosis, No edema, No tenderness/swelling - Results Results: Laboratory Results WBC 11.2 x10^3/uL (4.8-10.8) H 10/04/21 05:43 RBC 3.17 10^6/uL (4.70-6.10) L 10/04/21 05:43 Hgb 11.8 g/dL (14.0-18.0) L 10/04/21 05:43 Hct 34.8 % (42.0-52.0) L 10/04/21 05:43 MCV 109.8 fL (80.0-94.0) H 10/04/21 05:43 MCH 37.2 pg (27.0-31.0) H 10/04/21 05:43 MCHC 33.9 g/dL (32.0-36.0) 10/04/21 05:43 RDW 13.3 % (12.0-15.0) 10/04/21 05:43 Plt Count 256 10^3/uL (130-450) 10/04/21 05:43 MPV 10.3 fL (7.4-11.4) 10/04/21 05:43 Neut # (Auto) 7.9 10^3/uL (1.5-6.6) H 10/04/21 05:43 Lymph # (Auto) 1.6 10^3/uL (1.5-3.5) 10/04/21 05:43 [place] # (Auto) 1.3 10^3/uL (0.0-1.0) H 10/04/21 05:43 Eos # (Auto) 0.4 10^3/uL (0.0-0.7) 10/04/21 05:43 Baso # (Auto) 0.1 10^3/uL (0.0-0.1) 10/04/21 05:43 Absolute Nucleated RBC 0.00 x10^3/uL 10/04/21 05:43 Total Counted 100 10/02/21 04:45 Band Neuts % (Manual) 0 % (0-10) 10/02/21 04:45 Abnorm Lymph % (Manual) 0 % 10/02/21 04:45 Nucleated RBC % 0.0 /100WBC 10/04/21 05:43 Neutrophils # (Manual) 15.6 10^3/uL (1.5-6.6) H 10/02/21 04:45 Lymphocytes # (Manual) 1.1 10^3/uL (1.5-3.5) L 10/02/21 04:45 Monocytes # (Manual) 1.1 10^3/uL (0.0-1.0) H 10/02/21 04:45 Eosinophils # (Manual) 0.2 10^3/uL (0-0.7) 10/02/21 04:45 Basophils # (Manual) 0.0 10^3/uL (0-0.1) 10/02/21 04:45 Differential Comment MANUAL DIFFERENTIAL 10/02/21 04:45 WBC Morphology NORMAL APPEARANCE (NORMAL) 10/02/21 04:45 Platelet Estimate NORMAL (130-450,000) (NORMAL) 10/02/21 04:45 Platelet Morphology NORMAL APPEARANCE (NORMAL) 10/02/21 04:45 RBC Morph Micro Appear NORMAL APPEARANCE (NORMAL) 10/02/21 04:45 ESR 59 mm/Hr (0-20) H 10/01/21 18:35 PT 16.3 secs (9.9-12.6) H 10/01/21 20:43 INR 1.5 (0.8-1.2) H 10/01/21 20:43 Sodium 137 mmol/L (135-145) 10/04/21 05:43 Potassium 3.7 mmol/L (3.5-5.0) 10/04/21 05:43 Chloride 101 mmol/L (101-111) 10/04/21 05:43 Carbon Dioxide 28 mmol/L (21-32) 10/04/21 05:43 Anion Gap 8.0 (6-13) 10/04/21 05:43 BUN 13 mg/dL (6-20) 10/04/21 05:43 Creatinine 0.6 mg/dL (0.6-1.2) 10/04/21 05:43 Estimated GFR (MDRD) 136 (>89) 10/04/21 05:43 Glucose 110 mg/dL (70-100) H 10/04/21 05:43 Lactic Acid 0.8 mmol/L (0.5-2.2) 10/01/21 21:41 Calcium 8.0 mg/dL (8.5-10.3) L 10/04/21 05:43 Magnesium 1.7 mg/dL (1.7-2.8) 10/01/21 18:35 Total Bilirubin 2.5 mg/dL (0.2-1.0) H 10/01/21 18:35 AST 30 IU/L (10-42) 10/01/21 18:35 ALT < 10 IU/L (10-60) L 10/01/21 18:35 Alkaline Phosphatase 128 IU/L (42-121) H 10/01/21 18:35 Lactate Dehydrogenase 118 IU/L (91-225) 10/01/21 18:35 Troponin I High Sens 12.6 ng/L (2.3-19.7) 10/01/21 18:35 C-Reactive Protein 6.0 mg/dL (0-1.0) H 10/04/21 05:43 Total Protein 7.6 g/dL (6.7-8.2) 10/01/21 18:35 Albumin 2.3 g/dL (3.2-5.5) L 10/01/21 18:35 Globulin 5.3 g/dL (2.1-4.2) H 10/01/21 18:35 Albumin/Globulin Ratio 0.4 (1.0-2.2) L 10/01/21 18:35 Lipase 16 U/L (22-51) L 10/01/21 18:35 Prostate Specific Ag < 0.008 ng/mL (0.000-2.000) 10/01/21 18:35 Free PSA 0.010 ng/mL (0.16-2.81) L 10/01/21 18:35 % Free PSA Calc TNP 10/01/21 18:35 Vitamin B12 645 pg/mL (180-914) 10/02/21 04:45 Folate 5.61 ng/mL (5.90 - >24.8) L 10/02/21 04:45 Urine Color DARK YELLOW 10/02/21 13:00 Urine Clarity CLEAR (CLEAR) 10/02/21 13:00 Urine pH 6.5 PH (5.0-7.5) 10/02/21 13:00 Ur Specific Loco 1.020 (1.002-1.030) 10/02/21 13:00 Urine Protein TRACE mg/dL (NEGATIVE) 10/02/21 13:00 Urine Glucose (UA) NEGATIVE mg/dL (NEGATIVE) 10/02/21 13:00 Urine Ketones NEGATIVE mg/dL (NEGATIVE) 10/02/21 13:00 Urine Occult Blood SMALL (NEGATIVE) H 10/02/21 13:00 Urine Nitrite POSITIVE (NEGATIVE) H 10/02/21 13:00 Urine Bilirubin NEGATIVE (NEGATIVE) 10/02/21 13:00 Urine Urobilinogen 2 E.U./dL (NORMAL) H 10/02/21 13:00 Ur Leukocyte Esterase NEGATIVE (NEGATIVE) 10/02/21 13:00 Urine RBC 0-5 /HPF (0-5) 10/02/21 13:00 Urine WBC 0-3 /HPF (0-3) 10/02/21 13:00 Urine WBC Clumps NONE SEEN 10/02/21 13:00 Ur Epithelial Cells None Seen /HPF (<= Few) 10/02/21 13:00 Ur Squamous Epith Cells RARE Squamous (<= Few) 10/02/21 13:00 Urine Bacteria None Seen /HPF (None Seen) 10/02/21 13:00 Ur Microscopic Review INDICATED 10/02/21 13:00 Urine Culture Comments INDICATED 10/02/21 13:00 Fluid Source PLEURAL 10/01/21 21:20 Fluid Color YELLOW 10/01/21 21:20 Fluid Clarity HAZY 10/01/21 21:20 Fluid WBC 282 /mm^3 10/01/21 21:20 Fluid RBC 2000 /mm^3 10/01/21 21:20 Fluid Neutrophils % Not Reportable 10/01/21 21:20 Fluid Lymphocytes % 20 % 10/01/21 21:20 Fluid Monocytes % 35 % 10/01/21 21:20 Fluid Macrophages % 38 % 10/01/21 21:20 Fld Mesothelial Cell % 7 % 10/01/21 21:20 Nasal Adenovirus (PCR) NOT DETECTED 10/01/21 20:18 Nasal B. parapertussis DNA (PCR) NOT DETECTED 10/01/21 20:18 Nasal Coronavir 229E PCR NOT DETECTED 10/01/21 20:18 Nasal Coronavir HKU1 PCR NOT DETECTED 10/01/21 20:18 Nasal Coronavir NL63 PCR NOT DETECTED 10/01/21 20:18 Nasal Coronavir OC43 PCR NOT DETECTED 10/01/21 20:18 Nasal Enterovir/Rhinovir PCR NOT DETECTED 10/01/21 20:18 Nasal Influenza B PCR NOT DETECTED 10/01/21 20:18 Nasal Influenza A PCR NOT DETECTED 10/01/21 20:18 Nasal Parainfluen 1 PCR NOT DETECTED 10/01/21 20:18 Nasal Parainfluen 2 PCR NOT DETECTED 10/01/21 20:18 Nasal Parainfluen 3 PCR NOT DETECTED 10/01/21 20:18 Nasal Parainfluen 4 PCR NOT DETECTED 10/01/21 20:18 Nasal RSV (PCR) NOT DETECTED 10/01/21 20:18 Nasal B.pertussis DNA PCR NOT DETECTED 10/01/21 20:18 Nasal C.pneumoniae (PCR) NOT DETECTED 10/01/21 20:18 Caesar Human Metapneumo PCR NOT DETECTED 10/01/21 20:18 Nasal M.pneumoniae (PCR) NOT DETECTED 10/01/21 20:18 Nasal SARS-CoV-2 (PCR) NOT DETECTED 10/01/21 20:18 Ethyl Alcohol < 5.0 mg/dL 10/01/21 18:35 - Procedures Procedures: Procedures ENDO RECTUM POLYPECTOMY (02/23/14) ABX Reporting Has patient been on IV antibiotics over the past 48 hours?: Yes
[2021-10-04] MEDS: AZITHROMYCIN INJ 500 MG in SODIUM CHLORIDE 0.9% 250 ML IV SCH (09:28)
--- NOTE | 2021-10-04 12:24 | PROVIDER PROGRESS NOTE ---
Subjective - General Admit Date: 10/01/21 Procedure Date: 10/01/21 Post Op Days: 3 Procedure Performed: Right thoracostomy tube placement - Review of Systems Wound/Incisions: positive: Healing well General: positive: No symptoms Pulmonary: negative: Shortness of breath Cardiovascular: negative: Chest pain Gastrointestinal: positive: No symptoms All Other Systems: positive: Other Objective - Patient Data Reviewed Vital Signs: Yes Vital Signs: Vital Signs x48h Temp Pulse Resp BP BP Pulse Ox 10/04/21 11:13 36.5 C 104 H 19 96/65 94 10/04/21 07:38 36.7 C 106 H 19 107/64 95 10/04/21 05:00 36.7 C 113 H 20 102/72 95 Intake & Output: Intake and Output Totals x24h 10/02/21 10/03/21 10/04/21 23:59 23:59 23:59 Intake Total 3480.000 2510 930 Output Total 3215 2305 2000 Balance 265.000 205 -1070 - Lab Results Lab Results: 10/04/21 05:43 10/04/21 05:43 Other Lab Results: Lab Results x24hrs 10/04/21 10/04/21 Range/Units 05:43 05:43 WBC 11.2 H (4.8-10.8) x10^3/uL RBC 3.17 L (4.70-6.10) 10^6/uL Hgb 11.8 L (14.0-18.0) g/dL Hct 34.8 L (42.0-52.0) % MCV 109.8 H (80.0-94.0) fL MCH 37.2 H (27.0-31.0) pg MCHC 33.9 (32.0-36.0) g/dL RDW 13.3 (12.0-15.0) % Plt Count 256 (130-450) 10^3/uL MPV 10.3 (7.4-11.4) fL Neut # (Auto) 7.9 H (1.5-6.6) 10^3/uL Lymph # (Auto) 1.6 (1.5-3.5) 10^3/uL [place] # (Auto) 1.3 H (0.0-1.0) 10^3/uL Eos # (Auto) 0.4 (0.0-0.7) 10^3/uL Baso # (Auto) 0.1 (0.0-0.1) 10^3/uL Absolute Nucleated RBC 0.00 x10^3/uL Nucleated RBC % 0.0 /100WBC Sodium 137 (135-145) mmol/L Potassium 3.7 (3.5-5.0) mmol/L Chloride 101 (101-111) mmol/L Carbon Dioxide 28 (21-32) mmol/L Anion Gap 8.0 (6-13) BUN 13 (6-20) mg/dL Creatinine 0.6 (0.6-1.2) mg/dL Estimated GFR (MDRD) 136 (>89) Glucose 110 H (70-100) mg/dL Calcium 8.0 L (8.5-10.3) mg/dL C-Reactive Protein 6.0 H (0-1.0) mg/dL - Current Medications Current Medications: Current Medications Generic Name Dose Route Start Last Admin Trade Name Artis PRN Reason Stop Dose Admin Acetaminophen 650 mg 10/01/21 21:34 10/04/21 05:56 Acetaminophen 325 Mg Tablet PO 650 mg Q4HR PRN Administration Pain 1 to 4 Ceftriaxone Sodium 2 gm/ 100 mls @ 200 mls/hr 10/02/21 09:00 10/04/21 08:50 Sodium Chloride IV Infused DAILY BRENDA Infusion Metronidazole 500 mg in 100 mls @ 100 mls/hr 10/02/21 05:00 10/04/21 07:04 Flagyl 500 Mg/100 Ml IV Infused Q8H BRENDA Infusion Ondansetron HCl 4 mg 10/01/21 21:34 10/02/21 11:44 Ondansetron 4 Mg/2 Ml Vial IVP 4 mg Q6HR PRN Administration Nausea / Vomiting Oxycodone HCl 5 mg 10/01/21 21:34 10/04/21 05:56 Oxycodone 5 Mg Tablet PO 5 mg Q4HR PRN Administration Pain 5 to 7 Multivit/Folic Acid/Iron 1 tab 10/04/21 08:00 10/04/21 08:10 Vitamin Tablet PO 1 tab DAILYWM BRENDA Administration Sodium Chloride 10 ml 10/01/21 21:34 10/02/21 11:44 Sodium Chloride Flush 0.9% 10 Ml Syringe IVP 10 ml PRN PRN Administration NEEDED PER PROVIDER ORDERS Sodium Chloride 10 ml 10/02/21 01:00 10/04/21 08:12 Sodium Chloride Flush 0.9% 10 Ml Syringe IVP Not Given 0100,0900,1700 BRENDA - Physical Exam Comments/Other: Thoracostomy tube continues to drain straw colored fluid. On suction and fluctuating. A little bit difficult to interpret I and O but appears to be about 2 liters in the last 24 hours. Site is clean and crepitance in resolved. Drainage is serous ABX Reporting Has patient been on IV antibiotics over the past 48 hours?: Yes Impression/Plan - Problem List Problem List: Leave chest tube in place and on suction. Will check a CXR in the Morning. Would leave on suction to allow the lung to fulling inflate and have opportunity to adhere to the chest wall if possible. He may need Thoracoscopy and pleurodesis. Studies pending
[2021-10-04] MEDS: SODIUM CHLORIDE 0.9% 1,000 ML IV SCH (13:39)
[2021-10-05] MEDS: SODIUM CHLORIDE FLUSH 0.9% 10 ML SYRINGE IVP SCH ×4 (01:33→23:01)
[2021-10-05] MEDS: SODIUM CHLORIDE 0.9% 1,000 ML IV SCH (01:33)
[2021-10-05] MEDS: oxyCODONE 5 MG TABLET PO PRN ×3 (01:36→23:01)
[2021-10-05 06:11] LABS: CALCIUM 7.8 mg/dL (8.5-10.3); CREATININE 0.6 mg/dL (0.6-1.2); CRP - C-REACTIVE PROTEIN 4.1 mg/dL (0-1.0); POTASSIUM 3.7 mmol/L (3.5-5.0)
--- NOTE | 2021-10-05 07:50 | PROVIDER PROGRESS NOTE ---
Assessment/Plan - Problem List (1) Parapneumonic effusion Assessment/Plan: Etiology undetermined. Suspect infection versus malignancy. Patient had a chest tube placed in the ED. General surgery managing chest tube. Awaiting fluid analysis which was sent out. On Rocephin l empirically. Will continue. Blood cultures are no growth to date x3 days. White blood count continues to improve steadily. White blood cell count was 10.3 today. Yesterday it was 11.2. (2) Protein-calorie malnutrition, severe Assessment/Plan: Patient has significant muscle wasting, loss of subcutaneous fat. Nutrition intake is less than 50% of recommended intake for greater than 2 week s. He has experienced a greater than 11% weight loss in 6 month This is likely related to patient's prostate cancer and treatment for prostate cancer. Nutrition following. Will appreciate their recommendations. (3) Prostate cancer Assessment/Plan: This is in remission per the patient. He was treated with radiation therapy. His oncologist is at [place]. PSA was not detectable. (4) Knee pain, right anterior Assessment/Plan: The etiology of this is not clear. Imaging was unremarkable. His physical exam does reveal tenderness over the medial and lateral aspects but no obvious erythema or bruising. We'll treat this pain with Tylenol and ibuprofen. - Current Meds Current Meds: Current Medications Generic Name Dose Route Start Last Admin Trade Name Freq PRN Reason Stop Dose Admin Acetaminophen 650 mg 10/01/21 21:34 10/04/21 21:04 Acetaminophen 325 Mg Tablet PO 650 mg Q4HR PRN Administration Pain 1 to 4 Ceftriaxone Sodium 2 gm/ 100 mls @ 200 mls/hr 10/02/21 09:00 10/04/21 08:50 Sodium Chloride IV Infused DAILY BRENDA Infusion Sodium Chloride 1,000 mls @ 100 mls/hr 10/04/21 14:00 10/05/21 01:33 Normal Saline 0.9% IV 100 mls/hr .Q10H BRENDA Administration Ondansetron HCl 4 mg 10/01/21 21:34 10/02/21 11:44 Ondansetron 4 Mg/2 Ml Vial IVP 4 mg Q6HR PRN Administration Nausea / Vomiting Oxycodone HCl 5 mg 10/01/21 21:34 10/05/21 01:36 Oxycodone 5 Mg Tablet PO 5 mg Q4HR PRN Administration Pain 5 to 7 Multivit/Folic Acid/Iron 1 tab 10/04/21 08:00 10/04/21 08:10 Vitamin Tablet PO 1 tab DAILYWM BRENDA Administration Sodium Chloride 10 ml 10/01/21 21:34 10/02/21 11:44 Sodium Chloride Flush 0.9% 10 Ml Syringe IVP 10 ml PRN PRN Administration NEEDED PER PROVIDER ORDERS Sodium Chloride 10 ml 10/02/21 01:00 10/05/21 01:33 Sodium Chloride Flush 0.9% 10 Ml Syringe IVP 10 ml 0100,0900,1700 BRENDA Administration - Lab Result Fish Bone Diagrams: 10/05/21 05:04 10/05/21 05:04 - Additional Planning My Orders: My Active Orders 10/04/21 08:00 Vitamin [Trinatal Rx 1] 1 tab PO DAILYWM 10/04/21 14:00 Sodium Chloride 0.9% [Normal Saline 0.9%] 1,000 ml IV 100 mls/hr Subjective - Subjective Patient Reports: Other (Continues to be very alert, awake and oriented. He had just had breakfast at the time of visit. Denied any significant complaints.) Objective Vital Signs: Vital Signs - 24 hr 10/04/21 10/04/21 10/04/21 11:13 15:35 16:15 Temperature 36.5 C 36.6 C Heart Rate [ 95 Activity] Heart Rate [ 104 H 99 Brachial] Heart Rate [ 99 Supine] Respiratory 19 22 Rate Blood Pressure 124/77 [Activity] Blood Pressure 96/65 101/62 [Right Brachial artery] Blood Pressure 101/62 [Supine] O2 Saturation 94 96 10/04/21 10/04/21 10/05/21 21:00 23:24 05:00 Temperature 36.4 C L 36.4 C L 36.5 C Heart Rate [ Activity] Heart Rate [ 98 70 97 Brachial] Heart Rate [ Supine] Respiratory 18 20 20 Rate Blood Pressure [Activity] Blood Pressure 119/73 107/60 108/68 [Right Brachial artery] Blood Pressure [Supine] O2 Saturation 98 94 95 Oxygen O2 Source Room air I&O (Last 24 Hrs): Intake and Output Totals x24h 10/03/21 10/04/21 10/05/21 23:59 23:59 23:59 Intake Total 2510 2050 Output Total 2305 2695 390 Balance 205 -645 -390 Comments/Notes: General: Alert, Oriented x3, Other (Frail/ Cachexic) HEENT: PERRLA, EOMI Neck: Supple, No JVD Neuro: Alert, Non Focal, Oriented Times 3 Cardiovascular: Regular rate, No murmurs Respiratory: No respiratory distress, Wheezes (mild), Other (chest tube in place mild crepitus on right chest wall) Abdomen: Normal bowel sounds, Soft, No tenderness Extremities: No clubbing, No cyanosis, No edema, No tenderness/swelling - Results Results: Laboratory Results WBC 11.2 x10^3/uL (4.8-10.8) H 10/04/21 05:43 RBC 3.17 10^6/uL (4.70-6.10) L 10/04/21 05:43 Hgb 11.8 g/dL (14.0-18.0) L 10/04/21 05:43 Hct 34.8 % (42.0-52.0) L 10/04/21 05:43 MCV 109.8 fL (80.0-94.0) H 10/04/21 05:43 MCH 37.2 pg (27.0-31.0) H 10/04/21 05:43 MCHC 33.9 g/dL (32.0-36.0) 10/04/21 05:43 RDW 13.3 % (12.0-15.0) 10/04/21 05:43 Plt Count 256 10^3/uL (130-450) 10/04/21 05:43 MPV 10.3 fL (7.4-11.4) 10/04/21 05:43 Neut # (Auto) 7.9 10^3/uL (1.5-6.6) H 10/04/21 05:43 Lymph # (Auto) 1.6 10^3/uL (1.5-3.5) 10/04/21 05:43 [place]ett # (Auto) 1.3 10^3/uL (0.0-1.0) H 10/04/21 05:43 Eos # (Auto) 0.4 10^3/uL (0.0-0.7) 10/04/21 05:43 Baso # (Auto) 0.1 10^3/uL (0.0-0.1) 10/04/21 05:43 Absolute Nucleated RBC 0.00 x10^3/uL 10/04/21 05:43 Total Counted 100 10/02/21 04:45 Band Neuts % (Manual) 0 % (0-10) 10/02/21 04:45 Abnorm Lymph % (Manual) 0 % 10/02/21 04:45 Nucleated RBC % 0.0 /100WBC 10/04/21 05:43 Neutrophils # (Manual) 15.6 10^3/uL (1.5-6.6) H 10/02/21 04:45 Lymphocytes # (Manual) 1.1 10^3/uL (1.5-3.5) L 10/02/21 04:45 Monocytes # (Manual) 1.1 10^3/uL (0.0-1.0) H 10/02/21 04:45 Eosinophils # (Manual) 0.2 10^3/uL (0-0.7) 10/02/21 04:45 Basophils # (Manual) 0.0 10^3/uL (0-0.1) 10/02/21 04:45 Differential Comment MANUAL DIFFERENTIAL 10/02/21 04:45 WBC Morphology NORMAL APPEARANCE (NORMAL) 10/02/21 04:45 Platelet Estimate NORMAL (130-450,000) (NORMAL) 10/02/21 04:45 Platelet Morphology NORMAL APPEARANCE (NORMAL) 10/02/21 04:45 RBC Morph Micro Appear NORMAL APPEARANCE (NORMAL) 10/02/21 04:45 ESR 59 mm/Hr (0-20) H 10/01/21 18:35 PT 16.3 secs (9.9-12.6) H 10/01/21 20:43 INR 1.5 (0.8-1.2) H 10/01/21 20:43 Sodium 135 mmol/L (135-145) 10/05/21 05:04 Potassium 3.7 mmol/L (3.5-5.0) 10/05/21 05:04 Chloride 99 mmol/L (101-111) L 10/05/21 05:04 Carbon Dioxide 28 mmol/L (21-32) 10/05/21 05:04 Anion Gap 8.0 (6-13) 10/05/21 05:04 BUN 16 mg/dL (6-20) 10/05/21 05:04 Creatinine 0.6 mg/dL (0.6-1.2) 10/05/21 05:04 Estimated GFR (MDRD) 136 (>89) 10/05/21 05:04 Glucose 110 mg/dL (70-100) H 10/05/21 05:04 Lactic Acid 0.8 mmol/L (0.5-2.2) 10/01/21 21:41 Calcium 7.8 mg/dL (8.5-10.3) L 10/05/21 05:04 Magnesium 1.7 mg/dL (1.7-2.8) 10/01/21 18:35 Total Bilirubin 2.5 mg/dL (0.2-1.0) H 10/01/21 18:35 AST 30 IU/L (10-42) 10/01/21 18:35 ALT < 10 IU/L (10-60) L 10/01/21 18:35 Alkaline Phosphatase 128 IU/L (42-121) H 10/01/21 18:35 Lactate Dehydrogenase 118 IU/L (91-225) 10/01/21 18:35 Troponin I High Sens 12.6 ng/L (2.3-19.7) 10/01/21 18:35 C-Reactive Protein 4.1 mg/dL (0-1.0) H 10/05/21 05:04 Total Protein 7.6 g/dL (6.7-8.2) 10/01/21 18:35 Albumin 2.3 g/dL (3.2-5.5) L 10/01/21 18:35 Globulin 5.3 g/dL (2.1-4.2) H 10/01/21 18:35 Albumin/Globulin Ratio 0.4 (1.0-2.2) L 10/01/21 18:35 Lipase 16 U/L (22-51) L 10/01/21 18:35 Prostate Specific Ag < 0.008 ng/mL (0.000-2.000) 10/01/21 18:35 Free PSA 0.010 ng/mL (0.16-2.81) L 10/01/21 18:35 % Free PSA Calc TNP 10/01/21 18:35 Vitamin B12 645 pg/mL (180-914) 10/02/21 04:45 Folate 5.61 ng/mL (5.90 - >24.8) L 10/02/21 04:45 Urine Color DARK YELLOW 10/02/21 13:00 Urine Clarity CLEAR (CLEAR) 10/02/21 13:00 Urine pH 6.5 PH (5.0-7.5) 10/02/21 13:00 Ur Specific [place] 1.020 (1.002-1.030) 10/02/21 13:00 Urine Protein TRACE mg/dL (NEGATIVE) 10/02/21 13:00 Urine Glucose (UA) NEGATIVE mg/dL (NEGATIVE) 10/02/21 13:00 Urine Ketones NEGATIVE mg/dL (NEGATIVE) 10/02/21 13:00 Urine Occult Blood SMALL (NEGATIVE) H 10/02/21 13:00 Urine Nitrite POSITIVE (NEGATIVE) H 10/02/21 13:00 Urine Bilirubin NEGATIVE (NEGATIVE) 10/02/21 13:00 Urine Urobilinogen 2 E.U./dL (NORMAL) H 10/02/21 13:00 Ur Leukocyte Esterase NEGATIVE (NEGATIVE) 10/02/21 13:00 Urine RBC 0-5 /HPF (0-5) 10/02/21 13:00 Urine WBC 0-3 /HPF (0-3) 10/02/21 13:00 Urine WBC Clumps NONE SEEN 10/02/21 13:00 Ur Epithelial Cells None Seen /HPF (<= Few) 10/02/21 13:00 Ur Squamous Epith Cells RARE Squamous (<= Few) 10/02/21 13:00 Urine Bacteria None Seen /HPF (None Seen) 10/02/21 13:00 Ur Microscopic Review INDICATED 10/02/21 13:00 Urine Culture Comments INDICATED 10/02/21 13:00 Fluid Source PLEURAL 10/01/21 21:20 Fluid Color YELLOW 10/01/21 21:20 Fluid Clarity HAZY 10/01/21 21:20 Fluid WBC 282 /mm^3 10/01/21 21:20 Fluid RBC 2000 /mm^3 10/01/21 21:20 Fluid Neutrophils % Not Reportable 10/01/21 21:20 Fluid Lymphocytes % 20 % 10/01/21 21:20 Fluid Monocytes % 35 % 10/01/21 21:20 Fluid Macrophages % 38 % 10/01/21 21:20 Fld Mesothelial Cell % 7 % 10/01/21 21:20 Nasal Adenovirus (PCR) NOT DETECTED 10/01/21 20:18 Nasal B. parapertussis DNA (PCR) NOT DETECTED 10/01/21 20:18 Nasal Coronavir 229E PCR NOT DETECTED 10/01/21 20:18 Nasal Coronavir HKU1 PCR NOT DETECTED 10/01/21 20:18 Nasal Coronavir NL63 PCR NOT DETECTED 10/01/21 20:18 Nasal Coronavir OC43 PCR NOT DETECTED 10/01/21 20:18 Nasal Enterovir/Rhinovir PCR NOT DETECTED 10/01/21 20:18 Nasal Influenza B PCR NOT DETECTED 10/01/21 20:18 Nasal Influenza A PCR NOT DETECTED 10/01/21 20:18 Nasal Parainfluen 1 PCR NOT DETECTED 10/01/21 20:18 Nasal Parainfluen 2 PCR NOT DETECTED 10/01/21 20:18 Nasal Parainfluen 3 PCR NOT DETECTED 10/01/21 20:18 Nasal Parainfluen 4 PCR NOT DETECTED 10/01/21 20:18 Nasal RSV (PCR) NOT DETECTED 10/01/21 20:18 Nasal B.pertussis DNA PCR NOT DETECTED 10/01/21 20:18 Nasal C.pneumoniae (PCR) NOT DETECTED 10/01/21 20:18 Caesar Human Metapneumo PCR NOT DETECTED 10/01/21 20:18 Nasal M.pneumoniae (PCR) NOT DETECTED 10/01/21 20:18 Nasal SARS-CoV-2 (PCR) NOT DETECTED 10/01/21 20:18 Ethyl Alcohol < 5.0 mg/dL 10/01/21 18:35 Ref Lab Test Result REPORT 10/01/21 21:20 Ref Lab Test Result REPORT 10/01/21 21:20 Ref Lab Test Result REPORT 10/01/21 21:20 - Procedures Procedures: Procedures ENDO RECTUM POLYPECTOMY (02/23/14) ABX Reporting Has patient been on IV antibiotics over the past 48 hours?: Yes
[2021-10-05] MEDS: PRENATAL VITAMIN TABLET PO SCH (09:00)
[2021-10-05] MEDS: cefTRIAXone 2 GM in SODIUM CHLORIDE 0.9% MINIBAG 100 ML IV SCH (09:00)
[2021-10-05 09:38] LABS: HGB - HEMOGLOBIN 10.9 g/dL (14.0-18.0); MEAN CORPUSCULAR HEMOGLOBIN 36.7 pg (27.0-31.0); MEAN CORPUSCULAR VOLUME 111.1 fL (80.0-94.0); RED BLOOD COUNT 2.97 10^6/uL (4.70-6.10); WHITE BLOOD COUNT 10.3 x10^3/uL (4.8-10.8)
[2021-10-05 09:39] LABS: BASOPHILS # (AUTO) 0.1 10^3/uL (0.0-0.1); BASOPHILS % (AUTO) 0.6 %; EOSINOPHILS # (AUTO) 0.5 10^3/uL (0.0-0.7); EOSINOPHILS % (AUTO) 4.7 %; LYMPHOCYTES # (AUTO) 1.6 10^3/uL (1.5-3.5); LYMPHOCYTES % (AUTO) 15.9 %; MEAN PLATELET VOLUME 10.6 fL (7.4-11.4); MONOCYTES # (AUTO) 1.2 10^3/uL (0.0-1.0); MONOCYTES % (AUTO) 11.4 %; NEUTROPHILS # (AUTO) 6.9 10^3/uL (1.5-6.6); PLT - PLATELET COUNT 248 10^3/uL (130-450); RED CELL DISTRIBUTION WIDTH 13.3 % (12.0-15.0)
[2021-10-05 09:41] LABS: SLIDE REVIEW? Indicated
[2021-10-05 10:21] LABS: PLATELET ESTIMATE, MANUAL NORMAL (130-450,000) (NORMAL); PLATELET MORPHOLOGY NORMAL APPEARANCE (NORMAL); WBC MORPHOLOGY (MULTIPLE) NORMAL APPEARANCE (NORMAL)
[2021-10-05] MEDS: ACETAMINOPHEN 325 MG TABLET PO PRN ×2 (12:54→23:01)
--- NOTE | 2021-10-05 13:34 | PROVIDER PROGRESS NOTE ---
Subjective - General Admit Date: 10/01/21 Procedure Date: 10/01/21 Post Op Days: 4 Procedure Performed: Right thoracostomy tube placement - Review of Systems Wound/Incisions: positive: Healing well General: positive: No symptoms Pulmonary: negative: Shortness of breath Cardiovascular: negative: Chest pain Gastrointestinal: positive: No symptoms All Other Systems: positive: Other Objective - Patient Data Vital Signs: Vital Signs x48h Temp Pulse Resp BP Pulse Ox 10/05/21 11:36 36.7 C 113 H 18 121/73 94 10/05/21 07:52 36.7 C 100 16 108/66 95 Intake & Output: Intake and Output Totals x24h 10/03/21 10/04/21 10/05/21 23:59 23:59 23:59 Intake Total 2510 2050 1220 Output Total 2305 2695 390 Balance 205 -645 830 - Lab Results Lab Results: 10/05/21 05:04 10/05/21 05:04 Other Lab Results: Lab Results x24hrs 10/05/21 10/05/21 10/01/21 Range/Units 05:04 05:04 21:20 WBC 10.3 (4.8-10.8) x10^3/uL RBC 2.97 L (4.70-6.10) 10^6/uL Hgb 10.9 L (14.0-18.0) g/dL Hct 33.0 L (42.0-52.0) % MCV 111.1 H (80.0-94.0) fL MCH 36.7 H (27.0-31.0) pg MCHC 33.0 (32.0-36.0) g/dL RDW 13.3 (12.0-15.0) % Plt Count 248 (130-450) 10^3/uL MPV 10.6 (7.4-11.4) fL Neut # (Auto) 6.9 H (1.5-6.6) 10^3/uL Lymph # (Auto) 1.6 (1.5-3.5) 10^3/uL Williams # (Auto) 1.2 H (0.0-1.0) 10^3/uL Eos # (Auto) 0.5 (0.0-0.7) 10^3/uL Baso # (Auto) 0.1 (0.0-0.1) 10^3/uL Absolute Nucleated RBC 0.00 x10^3/uL Nucleated RBC % 0.0 /100WBC Manual Slide Review Indicated WBC Morphology NORMAL APPEARANCE (NORMAL) Platelet Estimate NORMAL (130-450,000) (NORMAL) Platelet Morphology NORMAL APPEARANCE (NORMAL) RBC Morph Micro Appear 1+ HYPOCHROMASIA (NORMAL) Sodium 135 (135-145) mmol/L Potassium 3.7 (3.5-5.0) mmol/L Chloride 99 L (101-111) mmol/L Carbon Dioxide 28 (21-32) mmol/L Anion Gap 8.0 (6-13) BUN 16 (6-20) mg/dL Creatinine 0.6 (0.6-1.2) mg/dL Estimated GFR (MDRD) 136 (>89) Glucose 110 H (70-100) mg/dL Calcium 7.8 L (8.5-10.3) mg/dL C-Reactive Protein 4.1 H (0-1.0) mg/dL Ref Lab Test Result REPORT 10/01/21 10/01/21 Range/Units 21:20 21:20 WBC (4.8-10.8) x10^3/uL RBC (4.70-6.10) 10^6/uL Hgb (14.0-18.0) g/dL Hct (42.0-52.0) % MCV (80.0-94.0) fL MCH (27.0-31.0) pg MCHC (32.0-36.0) g/dL RDW (12.0-15.0) % Plt Count (130-450) 10^3/uL MPV (7.4-11.4) fL Neut # (Auto) (1.5-6.6) 10^3/uL Lymph # (Auto) (1.5-3.5) 10^3/uL Williams # (Auto) (0.0-1.0) 10^3/uL Eos # (Auto) (0.0-0.7) 10^3/uL Baso # (Auto) (0.0-0.1) 10^3/uL Absolute Nucleated RBC x10^3/uL Nucleated RBC % /100WBC Manual Slide Review WBC Morphology (NORMAL) Platelet Estimate (NORMAL) Platelet Morphology (NORMAL) RBC Morph Micro Appear (NORMAL) Sodium (135-145) mmol/L Potassium (3.5-5.0) mmol/L Chloride (101-111) mmol/L Carbon Dioxide (21-32) mmol/L Anion Gap (6-13) BUN (6-20) mg/dL Creatinine (0.6-1.2) mg/dL Estimated GFR (MDRD) (>89) Glucose (70-100) mg/dL Calcium (8.5-10.3) mg/dL C-Reactive Protein (0-1.0) mg/dL Ref Lab Test Result REPORT REPORT - Current Medications Current Medications: Current Medications Generic Name Dose Route Start Last Admin Trade Name Freq PRN Reason Stop Dose Admin Acetaminophen 650 mg 10/01/21 21:34 10/05/21 12:54 Acetaminophen 325 Mg Tablet PO 650 mg Q4HR PRN Administration Pain 1 to 4 Ceftriaxone Sodium 2 gm/ 100 mls @ 200 mls/hr 10/02/21 09:00 10/05/21 09:30 Sodium Chloride IV Infused DAILY BRENDA Infusion Ondansetron HCl 4 mg 10/01/21 21:34 10/02/21 11:44 Ondansetron 4 Mg/2 Ml Vial IVP 4 mg Q6HR PRN Administration Nausea / Vomiting Oxycodone HCl 5 mg 10/01/21 21:34 10/05/21 12:54 Oxycodone 5 Mg Tablet PO 5 mg Q4HR PRN Administration Pain 5 to 7 Multivit/Folic Acid/Iron 1 tab 10/04/21 08:00 10/05/21 09:00 Vitamin Tablet PO 1 tab DAILYWM BRENDA Administration Sodium Chloride 10 ml 10/01/21 21:34 10/02/21 11:44 Sodium Chloride Flush 0.9% 10 Ml Syringe IVP 10 ml PRN PRN Administration NEEDED PER PROVIDER ORDERS Sodium Chloride 10 ml 10/02/21 01:00 10/05/21 10:25 Sodium Chloride Flush 0.9% 10 Ml Syringe IVP Not Given 0100,0900,1700 [facility] - Physical Exam Comments/Other: Hunter is sitting up in a chair today and generally looks a little better even than yesterday he says he is not in any pain. Chest tube is in place and continues to drain significantly. So far today in the last 13 hours he has dra pereira about a liter.He has no respiratory distress.Tube dressing is dry and intact. ABX Reporting Has patient been on IV antibiotics over the past 48 hours?: Yes Impression/Plan - Problem List Problem List: Large right pleural effusion in the setting of very pleasant gentleman with cachexia of unknown etiology. I will place the tube to waterseal. This will at least allow him to move around in the room more freely. We will continue to wait cytology results. This will definitely determine the way forward for him.
[2021-10-06 06:31] LABS: BASOPHILS # (AUTO) 0.1 10^3/uL (0.0-0.1); BASOPHILS % (AUTO) 0.5 %; EOSINOPHILS # (AUTO) 0.6 10^3/uL (0.0-0.7); EOSINOPHILS % (AUTO) 4.6 %; HCT - HEMATOCRIT 33.2 % (42.0-52.0); HGB - HEMOGLOBIN 11.2 g/dL (14.0-18.0); LYMPHOCYTES # (AUTO) 1.6 10^3/uL (1.5-3.5); LYMPHOCYTES % (AUTO) 12.3 %; MEAN CORPUSCULAR HEMOGLOBIN 37.3 pg (27.0-31.0); MEAN CORPUSCULAR HGB CONC 33.7 g/dL (32.0-36.0); MEAN CORPUSCULAR VOLUME 110.7 fL (80.0-94.0); MEAN PLATELET VOLUME 10.6 fL (7.4-11.4); MONOCYTES # (AUTO) 1.3 10^3/uL (0.0-1.0); MONOCYTES % (AUTO) 9.8 %; NEUTROPHILS # (AUTO) 9.2 10^3/uL (1.5-6.6); NEUTROPHILS % (AUTO) 72.3 %; PLT - PLATELET COUNT 273 10^3/uL (130-450); RED CELL DISTRIBUTION WIDTH 13.5 % (12.0-15.0); WHITE BLOOD COUNT 12.8 x10^3/uL (4.8-10.8)
[2021-10-06 06:38] LABS: SLIDE REVIEW? Indicated
[2021-10-06 06:49] LABS: CALCIUM 8.2 mg/dL (8.5-10.3); CREATININE 0.6 mg/dL (0.6-1.2); CRP - C-REACTIVE PROTEIN 3.4 mg/dL (0-1.0); POTASSIUM 3.8 mmol/L (3.5-5.0)
--- NOTE | 2021-10-06 07:24 | PROVIDER PROGRESS NOTE ---
Assessment/Plan - Problem List (1) Parapneumonic effusion Assessment/Plan: Etiology undetermined. Suspect infection versus malignancy vs malnutrition. Patient had a chest tube placed in the ED. General surgery managing chest tube. Per Dr Bhatt, patient will likely need to undergo pleurodesis due to continuous significant fluid drainage from chest tube Will work on transfering patient for possible procedure in the following days. Analysis of fluid indicates a transudative fluid collection. On Rocephin l empirically. Flagyl resumed. Will continue. Blood cultures are no growth to date x4 days. White blood count continues to improve steadily. White blood cell count was 11.2 today. Yesterday it was 13.8. (2) Protein-calorie malnutrition, severe Assessment/Plan: Patient has significant muscle wasting, loss of subcutaneous fat. Nutrition intake is less than 50% of recommended intake for greater than 2 weeks. He has experienced a greater than 11% weight loss in 6 month This is likely related to patient's prostate cancer and treatment for prostate cancer. Nutrition following. Will appreciate their recommendations. Will continue to encourage increased oral intake. (3) Prostate cancer Assessment/Plan: This is in remission per the patient. He was treated with radiation therapy. His oncologist is at [facility]. PSA was not detectable. (4) Knee pain, right anterior Assessment/Plan: Imaging was unremarkable. His physical exam does reveal tenderness over the medial and lateral aspects but no obvious erythema or bruising. Todadol IV prn added to medications Allopurinol 100mg p.o daily resumed. - Current Meds Current Meds: Current Medications Generic Name Dose Route Start Last Admin Trade Name Freq PRN Reason Stop Dose Admin Acetaminophen 650 mg 10/01/21 21:34 10/05/21 23:01 Acetaminophen 325 Mg Tablet PO 650 mg Q4HR PRN Administration Pain 1 to 4 Diphenhydramine HCl 25 mg 10/02/21 22:49 10/05/21 23:01 Diphenhydramine 25 Mg Capsule PO 25 mg QPM PRN Administration Insomnia Ceftriaxone Sodium 2 gm/ 100 mls @ 200 mls/hr 10/02/21 09:00 10/05/21 09:30 Sodium Chloride IV Infused DAILY BRENDA Infusion Ondansetron HCl 4 mg 10/01/21 21:34 10/02/21 11:44 Ondansetron 4 Mg/2 Ml Vial IVP 4 mg Q6HR PRN Administration Nausea / Vomiting Oxycodone HCl 5 mg 10/01/21 21:34 10/05/21 23:01 Oxycodone 5 Mg Tablet PO 5 mg Q4HR PRN Administration Pain 5 to 7 Multivit/Folic Acid/Iron 1 tab 10/04/21 08:00 10/05/21 09:00 Vitamin Tablet PO 1 tab DAILYWM BRENDA Administration Sodium Chloride 10 ml 10/01/21 21:34 10/02/21 11:44 Sodium Chloride Flush 0.9% 10 Ml Syringe IVP 10 ml PRN PRN Administration NEEDED PER PROVIDER ORDERS Sodium Chloride 10 ml 10/02/21 01:00 10/05/21 23:01 Sodium Chloride Flush 0.9% 10 Ml Syringe IVP 10 ml 0100,0900,1700 BRENDA Administration - Lab Result Fish Bone Diagrams: 10/06/21 05:24 10/06/21 05:24 - Additional Planning My Orders: My Active Orders 10/06/21 08:00 metroNIDAZOLE/NS 500 mg/100 mL Q8H metroNIDAZOLE 500 MG/100 ML [Flagyl 500 mg/100 ml] 500 mg in 100 ml IV Q8H Subjective - Subjective Patient Reports: Other (Patient resting comfortably in bed. Complains of right shoulder pain and knee pain.) Objective Vital Signs: Vital Signs - 24 hr 10/05/21 10/05/21 10/05/21 07:52 11:36 17:00 Temperature 36.7 C 36.7 C 36.8 C Heart Rate [ 100 113 H 93 Brachial] Respiratory 16 18 18 Rate Blood Pressure 108/66 121/73 113/57 L [Right Brachial artery] O2 Saturation 95 94 98 10/05/21 10/05/21 10/06/21 21:00 23:26 03:19 Temperature 36.7 C 36.6 C 36.7 C Heart Rate [ 106 H 103 H 71 Brachial] Respiratory 20 18 18 Rate Blood Pressure 113/57 L 108/65 111/62 [Right Brachial artery] O2 Saturation 99 96 93 Oxygen O2 Source Room air I&O (Last 24 Hrs): Intake and Output Totals x24h 10/04/21 10/05/21 10/06/21 23:59 23:59 23:59 Intake Total 2050 2240 300 Output Total 2695 1635 1040 Balance -645 605 -740 General: Alert, Oriented x3, Other (Frail/Cachexic) HEENT: PERRLA, EOMI Neck: Supple, No JVD Neuro: Alert, Non Focal, Oriented Times 3 Cardiovascular: Regular rate, No murmurs Respiratory: No respiratory distress, Other (chest tube in place) Abdomen: Normal bowel sounds, Soft, No tenderness Extremities: No cyanosis, Other (Tenderness and swelling in knee joints bilaterally) Skin: No rashes, No breakdown - Results Results: Laboratory Results WBC 12.8 x10^3/uL (4.8-10.8) H 10/06/21 05:24 RBC 3.00 10^6/uL (4.70-6.10) L 10/06/21 05:24 Hgb 11.2 g/dL (14.0-18.0) L 10/06/21 05:24 Hct 33.2 % (42.0-52.0) L 10/06/21 05:24 MCV 110.7 fL (80.0-94.0) H 10/06/21 05:24 MCH 37.3 pg (27.0-31.0) H 10/06/21 05:24 MCHC 33.7 g/dL (32.0-36.0) 10/06/21 05:24 RDW 13.5 % (12.0-15.0) 10/06/21 05:24 Plt Count 273 10^3/uL (130-450) 10/06/21 05:24 MPV 10.6 fL (7.4-11.4) 10/06/21 05:24 Neut # (Auto) 6.9 10^3/uL (1.5-6.6) H 10/05/21 05:04 Lymph # (Auto) 1.6 10^3/uL (1.5-3.5) 10/05/21 05:04 [place] # (Auto) 1.2 10^3/uL (0.0-1.0) H 10/05/21 05:04 Eos # (Auto) 0.5 10^3/uL (0.0-0.7) 10/05/21 05:04 Baso # (Auto) 0.1 10^3/uL (0.0-0.1) 10/05/21 05:04 Absolute Nucleated RBC 0.00 x10^3/uL 10/05/21 05:04 Total Counted 100 10/02/21 04:45 Band Neuts % (Manual) 0 % (0-10) 10/02/21 04:45 Abnorm Lymph % (Manual) 0 % 10/02/21 04:45 Nucleated RBC % 0.0 /100WBC 10/05/21 05:04 Neutrophils # (Manual) 15.6 10^3/uL (1.5-6.6) H 10/02/21 04:45 Lymphocytes # (Manual) 1.1 10^3/uL (1.5-3.5) L 10/02/21 04:45 Monocytes # (Manual) 1.1 10^3/uL (0.0-1.0) H 10/02/21 04:45 Eosinophils # (Manual) 0.2 10^3/uL (0-0.7) 10/02/21 04:45 Basophils # (Manual) 0.0 10^3/uL (0-0.1) 10/02/21 04:45 Differential Comment MANUAL DIFFERENTIAL 10/02/21 04:45 Manual Slide Review Indicated 10/06/21 05:24 WBC Morphology NORMAL APPEARANCE (NORMAL) 10/05/21 05:04 Platelet Estimate NORMAL (130-450,000) (NORMAL) 10/05/21 05:04 Platelet Morphology NORMAL APPEARANCE (NORMAL) 10/05/21 05:04 RBC Morph Micro Appear 1+ MACROCYTOSIS (NORMAL) 1+ HYPOCHROMASIA (NORMAL) 10/05/21 05:04 RBC Morph Micro Appear 1+ MACROCYTOSIS (NORMAL) 1+ HYPOCHROMASIA (NORMAL) 10/05/21 05:04 ESR 59 mm/Hr (0-20) H 10/01/21 18:35 PT 16.3 secs (9.9-12.6) H 10/01/21 20:43 INR 1.5 (0.8-1.2) H 10/01/21 20:43 Sodium 133 mmol/L (135-145) L 10/06/21 05:24 Potassium 3.8 mmol/L (3.5-5.0) 10/06/21 05:24 Chloride 99 mmol/L (101-111) L 10/06/21 05:24 Carbon Dioxide 26 mmol/L (21-32) 10/06/21 05:24 Anion Gap 8.0 (6-13) 10/06/21 05:24 BUN 17 mg/dL (6-20) 10/06/21 05:24 Creatinine 0.6 mg/dL (0.6-1.2) 10/06/21 05:24 Estimated GFR (MDRD) 136 (>89) 10/06/21 05:24 Glucose 113 mg/dL (70-100) H 10/06/21 05:24 Lactic Acid 0.8 mmol/L (0.5-2.2) 10/01/21 21:41 Calcium 8.2 mg/dL (8.5-10.3) L 10/06/21 05:24 Magnesium 1.7 mg/dL (1.7-2.8) 10/01/21 18:35 Total Bilirubin 2.5 mg/dL (0.2-1.0) H 10/01/21 18:35 AST 30 IU/L (10-42) 10/01/21 18:35 ALT < 10 IU/L (10-60) L 10/01/21 18:35 Alkaline Phosphatase 128 IU/L (42-121) H 10/01/21 18:35 Lactate Dehydrogenase 118 IU/L (91-225) 10/01/21 18:35 Troponin I High Sens 12.6 ng/L (2.3-19.7) 10/01/21 18:35 C-Reactive Protein 3.4 mg/dL (0-1.0) H 10/06/21 05:24 Total Protein 7.6 g/dL (6.7-8.2) 10/01/21 18:35 Albumin 2.3 g/dL (3.2-5.5) L 10/01/21 18:35 Globulin 5.3 g/dL (2.1-4.2) H 10/01/21 18:35 Albumin/Globulin Ratio 0.4 (1.0-2.2) L 10/01/21 18:35 Lipase 16 U/L (22-51) L 10/01/21 18:35 Prostate Specific Ag < 0.008 ng/mL (0.000-2.000) 10/01/21 18:35 Free PSA 0.010 ng/mL (0.16-2.81) L 10/01/21 18:35 % Free PSA Calc TNP 10/01/21 18:35 Vitamin B12 645 pg/mL (180-914) 10/02/21 04:45 Folate 5.61 ng/mL (5.90 - >24.8) L 10/02/21 04:45 Urine Color DARK YELLOW 10/02/21 13:00 Urine Clarity CLEAR (CLEAR) 10/02/21 13:00 Urine pH 6.5 PH (5.0-7.5) 10/02/21 13:00 Ur Specific [place] 1.020 (1.002-1.030) 10/02/21 13:00 Urine Protein TRACE mg/dL (NEGATIVE) 10/02/21 13:00 Urine Glucose (UA) NEGATIVE mg/dL (NEGATIVE) 10/02/21 13:00 Urine Ketones NEGATIVE mg/dL (NEGATIVE) 10/02/21 13:00 Urine Occult Blood SMALL (NEGATIVE) H 10/02/21 13:00 Urine Nitrite POSITIVE (NEGATIVE) H 10/02/21 13:00 Urine Bilirubin NEGATIVE (NEGATIVE) 10/02/21 13:00 Urine Urobilinogen 2 E.U./dL (NORMAL) H 10/02/21 13:00 Ur Leukocyte Esterase NEGATIVE (NEGATIVE) 10/02/21 13:00 Urine RBC 0-5 /HPF (0-5) 10/02/21 13:00 Urine WBC 0-3 /HPF (0-3) 10/02/21 13:00 Urine WBC Clumps NONE SEEN 10/02/21 13:00 Ur Epithelial Cells None Seen /HPF (<= Few) 10/02/21 13:00 Ur Squamous Epith Cells RARE Squamous (<= Few) 10/02/21 13:00 Urine Bacteria None Seen /HPF (None Seen) 10/02/21 13:00 Ur Microscopic Review INDICATED 10/02/21 13:00 Urine Culture Comments INDICATED 10/02/21 13:00 Fluid Source PLEURAL 10/01/21 21:20 Fluid Color YELLOW 10/01/21 21:20 Fluid Clarity HAZY 10/01/21 21:20 Fluid WBC 282 /mm^3 10/01/21 21:20 Fluid RBC 2000 /mm^3 10/01/21 21:20 Fluid Neutrophils % Not Reportable 10/01/21 21:20 Fluid Lymphocytes % 20 % 10/01/21 21:20 Fluid Monocytes % 35 % 10/01/21 21:20 Fluid Macrophages % 38 % 10/01/21 21:20 Fld Mesothelial Cell % 7 % 10/01/21 21:20 Nasal Adenovirus (PCR) NOT DETECTED 10/01/21 20:18 Nasal B. parapertussis DNA (PCR) NOT DETECTED 10/01/21 20:18 Nasal Coronavir 229E PCR NOT DETECTED 10/01/21 20:18 Nasal Coronavir HKU1 PCR NOT DETECTED 10/01/21 20:18 Nasal Coronavir NL63 PCR NOT DETECTED 10/01/21 20:18 Nasal Coronavir OC43 PCR NOT DETECTED 10/01/21 20:18 Nasal Enterovir/Rhinovir PCR NOT DETECTED 10/01/21 20:18 Nasal Influenza B PCR NOT DETECTED 10/01/21 20:18 Nasal Influenza A PCR NOT DETECTED 10/01/21 20:18 Nasal Parainfluen 1 PCR NOT DETECTED 10/01/21 20:18 Nasal Parainfluen 2 PCR NOT DETECTED 10/01/21 20:18 Nasal Parainfluen 3 PCR NOT DETECTED 10/01/21 20:18 Nasal Parainfluen 4 PCR NOT DETECTED 10/01/21 20:18 Nasal RSV (PCR) NOT DETECTED 10/01/21 20:18 Nasal B.pertussis DNA PCR NOT DETECTED 10/01/21 20:18 Nasal C.pneumoniae (PCR) NOT DETECTED 10/01/21 20:18 Caesar Human Metapneumo PCR NOT DETECTED 10/01/21 20:18 Nasal M.pneumoniae (PCR) NOT DETECTED 10/01/21 20:18 Nasal SARS-CoV-2 (PCR) NOT DETECTED 10/01/21 20:18 Ethyl Alcohol < 5.0 mg/dL 10/01/21 18:35 Ref Lab Test Result REPORT 10/01/21 21:20 Ref Lab Test Result REPORT 10/01/21 21:20 Ref Lab Test Result REPORT 10/01/21 21:20 - Procedures Procedures: Procedures ENDO RECTUM POLYPECTOMY (02/23/14) ABX Reporting Has patient been on IV antibiotics over the past 48 hours?: Yes
[2021-10-06 08:03] LABS: PLATELET ESTIMATE, MANUAL NORMAL (130-450,000) (NORMAL); PLATELET MORPHOLOGY NORMAL APPEARANCE (NORMAL); RBC MORPHOLOGY (MULTIPLE) 1+ MACROCYTOSIS (NORMAL); WBC MORPHOLOGY (MULTIPLE) NORMAL APPEARANCE (NORMAL)
[2021-10-06] MEDS: oxyCODONE 5 MG TABLET PO PRN ×3 (08:53→21:18)
[2021-10-06] MEDS: ACETAMINOPHEN 325 MG TABLET PO PRN ×3 (08:54→21:18)
[2021-10-06] MEDS: PRENATAL VITAMIN TABLET PO SCH (08:54)
[2021-10-06] MEDS: cefTRIAXone 2 GM in SODIUM CHLORIDE 0.9% MINIBAG 100 ML IV SCH (08:55)
[2021-10-06] MEDS: SODIUM CHLORIDE FLUSH 0.9% 10 ML SYRINGE IVP SCH ×3 (08:56→21:12)
[2021-10-06] MEDS: metroNIDAZOLE 500 MG/100 ML 500 MG/100 ML BAG IV SCH ×3 (08:56→21:12)
--- NOTE | 2021-10-06 10:07 | PROVIDER PROGRESS NOTE ---
Subjective - General Admit Date: 10/01/21 Procedure Date: 10/01/21 Post Op Days: 5 Procedure Performed: Right thoracostomy tube placement - Review of Systems Wound/Incisions: positive: Healing well General: positive: No symptoms Pulmonary: negative: Shortness of breath Cardiovascular: negative: Chest pain Gastrointestinal: positive: No symptoms All Other Systems: positive: Other - Other Other Information/Narrative: Reports he feels ok but his knees hurt. Remembers that he takes gout medicine for his knees and he hasn't received it since admission. Continues on antibiotics. Declined to work with PT due to knee pain. Also complaining of right shoulder pain. Objective - Patient Data Reviewed Vital Signs: Yes Vital Signs: Vital Signs x48h Temp Pulse Resp BP Pulse Ox 10/06/21 07:30 36.7 C 107 H 16 104/73 95 10/06/21 03:19 36.7 C 71 18 111/62 93 Intake & Output: Intake and Output Totals x24h 10/04/21 10/05/21 10/06/21 23:59 23:59 23:59 Intake Total 2050 2240 600 Output Total 2695 1635 1040 Balance -645 605 -440 - Lab Results Lab Results: 10/06/21 05:24 10/06/21 05:24 Other Lab Results: Lab Results x24hrs 10/06/21 10/06/21 10/05/21 Range/Units 05:24 05:24 05:04 WBC 12.8 H (4.8-10.8) x10^3/uL RBC 3.00 L (4.70-6.10) 10^6/uL Hgb 11.2 L (14.0-18.0) g/dL Hct 33.2 L (42.0-52.0) % MCV 110.7 H (80.0-94.0) fL MCH 37.3 H (27.0-31.0) pg MCHC 33.7 (32.0-36.0) g/dL RDW 13.5 (12.0-15.0) % Plt Count 273 (130-450) 10^3/uL MPV 10.6 (7.4-11.4) fL Neut # (Auto) 9.2 H (1.5-6.6) 10^3/uL Lymph # (Auto) 1.6 (1.5-3.5) 10^3/uL [place] # (Auto) 1.3 H (0.0-1.0) 10^3/uL Eos # (Auto) 0.6 (0.0-0.7) 10^3/uL Baso # (Auto) 0.1 (0.0-0.1) 10^3/uL Absolute Nucleated RBC 0.00 x10^3/uL Nucleated RBC % 0.0 /100WBC Manual Slide Review Indicated WBC Morphology NORMAL APPEARANCE NORMAL APPEARANCE (NORMAL) Platelet Estimate NORMAL (130-450,000) NORMAL (130-450,000) (NORMAL) Platelet Morphology NORMAL APPEARANCE NORMAL APPEARANCE (NORMAL) RBC Morph Micro Appear 1+ MACROCYTOSIS (NORMAL) Sodium 133 L (135-145) mmol/L Potassium 3.8 (3.5-5.0) mmol/L Chloride 99 L (101-111) mmol/L Carbon Dioxide 26 (21-32) mmol/L Anion Gap 8.0 (6-13) BUN 17 (6-20) mg/dL Creatinine 0.6 (0.6-1.2) mg/dL Estimated GFR (MDRD) 136 (>89) Glucose 113 H (70-100) mg/dL Calcium 8.2 L (8.5-10.3) mg/dL C-Reactive Protein 3.4 H (0-1.0) mg/dL - Current Medications Current Medications: Current Medications Generic Name Dose Route Start Last Admin Trade Name Freq PRN Reason Stop Dose Admin Acetaminophen 650 mg 10/01/21 21:34 10/06/21 08:54 Acetaminophen 325 Mg Tablet PO 650 mg Q4HR PRN Administration Pain 1 to 4 Diphenhydramine HCl 25 mg 10/02/21 22:49 10/05/21 23:01 Diphenhydramine 25 Mg Capsule PO 25 mg QPM PRN Administration Insomnia Ceftriaxone Sodium 2 gm/ 100 mls @ 200 mls/hr 10/02/21 09:00 10/06/21 08:55 Sodium Chloride IV 200 mls/hr DAILY BRENDA Administration Metronidazole 500 mg in 100 mls @ 100 mls/hr 10/06/21 08:00 10/06/21 08:56 Flagyl 500 Mg/100 Ml IV 100 mls/hr Q8HR BRENDA Administration Ondansetron HCl 4 mg 12/12/21 21:34 10/02/21 11:44 Ondansetron 4 Mg/2 Ml Vial IVP 4 mg Q6HR PRN Administration Nausea / Vomiting Oxycodone HCl 5 mg 10/01/21 21:34 10/06/21 08:53 Oxycodone 5 Mg Tablet PO 5 mg Q4HR PRN Administration Pain 5 to 7 Multivit/Folic Acid/Iron 1 tab 10/04/21 08:00 10/06/21 08:54 Vitamin Tablet PO 1 tab DAILYWM BRENDA Administration Sodium Chloride 10 ml 10/01/21 21:34 10/02/21 11:44 Sodium Chloride Flush 0.9% 10 Ml Syringe IVP 10 ml PRN PRN Administration NEEDED PER PROVIDER ORDERS Sodium Chloride 10 ml 10/02/21 01:00 10/06/21 08:56 Sodium Chloride Flush 0.9% 10 Ml Syringe IVP 10 ml 0100,0900,1700 BRENDA Administration - Physical Exam Comments/Other: Chest tube remains in position. Drainage is serous but continues to be copious. ABX Reporting Has patient been on IV antibiotics over the past 48 hours?: Yes Impression/Plan - Problem List Problem List: Large right pleural effusion that is now drained but he continues to have copious output of straw colored fluid - more than a liter per day. In my opinion, he will need thoracoscopy with pleurodesis if this proves to be only infectious. My need that or a different operation if this is a malignant process. Either will require transfer to another facility.
[2021-10-06] MEDS: allopurinoL 100 MG TABLET PO SCH (12:26)
[2021-10-07] MEDS: oxyCODONE 5 MG TABLET PO PRN ×2 (05:10→20:06)
[2021-10-07] MEDS: ACETAMINOPHEN 325 MG TABLET PO PRN ×2 (05:11→20:06)
[2021-10-07] MEDS: SODIUM CHLORIDE FLUSH 0.9% 10 ML SYRINGE IVP PRN (05:20)
[2021-10-07] MEDS: metroNIDAZOLE 500 MG/100 ML 500 MG/100 ML BAG IV SCH ×3 (05:20→21:30)
--- NOTE | 2021-10-07 07:21 | PROVIDER PROGRESS NOTE ---
Assessment/Plan - Problem List (1) Parapneumonic effusion Assessment/Plan: Etiology undetermined. Suspect infection versus malignancy vs malnutrition. Patient had a chest tube placed in the ED. General surgery managing chest tube. Patient continues to have high volume output from the chest tube. Per Dr Bhatt, patient will likely need to undergo pleurodesis due to continuous significant fluid drainage from chest tube Will work on transfering patient for possible procedure in the following days. Analysis of fluid indicates a transudative fluid collection. On Rocephin empirically. Flagyl resumed 10/06/21. Will continue. Blood cultures are no growth to date x5 days. White blood count continues to improve steadily. White blood cell count was 10.1 today. Yesterday it was 12.8. (2) Protein-calorie malnutrition, severe Assessment/Plan: Patient has significant muscle wasting, loss of subcutaneous fat. Nutrition intake is less than 50% of recommended intake for greater than 2 weeks. He has experienced a greater than 11% weight loss in 6 month This is likely related to patient's prostate cancer and treatment for prostate cancer. Nutrition following. Will appreciate their recommendations. Will continue to encourage increased oral intake. (3) Prostate cancer Assessment/Plan: This is in remission per the patient. He was treated with radiation therapy. His oncologist is at [place]. PSA was not detectable. (4) Knee pain, right anterior Assessment/Plan: Imaging was unremarkable. His physical exam does reveal tenderness over the medial and lateral aspects but no obvious erythema or bruising. Todadol IV prn added to medications Allopurinol 100mg p.o daily resumed. - Current Meds Current Meds: Current Medications Generic Name Dose Route Start Last Admin Trade Name Artis PRN Reason Stop Dose Admin Acetaminophen 650 mg 10/01/21 21:34 10/07/21 05:11 Acetaminophen 325 Mg Tablet PO 650 mg Q4HR PRN Administration Pain 1 to 4 Allopurinol 100 mg 10/06/21 11:00 10/06/21 12:26 Allopurinol 100 Mg Tablet PO 100 mg DAILY BRENDA Administration Diphenhydramine HCl 25 mg 10/02/21 22:49 10/05/21 23:01 Diphenhydramine 25 Mg Capsule PO 25 mg QPM PRN Administration Insomnia Ceftriaxone Sodium 2 gm/ 100 mls @ 200 mls/hr 10/02/21 09:00 10/06/21 09:30 Sodium Chloride IV Infused DAILY BRENDA Infusion Metronidazole 500 mg in 100 mls @ 100 mls/hr 10/06/21 08:00 10/07/21 06:20 Flagyl 500 Mg/100 Ml IV Infused Q8HR BRENDA Infusion Ondansetron HCl 4 mg 10/01/21 21:34 10/02/21 11:44 Ondansetron 4 Mg/2 Ml Vial IVP 4 mg Q6HR PRN Administration Nausea / Vomiting Oxycodone HCl 5 mg 10/01/21 21:34 10/07/21 05:10 Oxycodone 5 Mg Tablet PO 5 mg Q4HR PRN Administration Pain 5 to 7 Multivit/Folic Acid/Iron 1 tab 10/04/21 08:00 10/06/21 08:54 Vitamin Tablet PO 1 tab DAILYWM BRENDA Administration Sodium Chloride 10 ml 10/01/21 21:34 10/07/21 05:20 Sodium Chloride Flush 0.9% 10 Ml Syringe IVP 10 ml PRN PRN Administration NEEDED PER PROVIDER ORDERS Sodium Chloride 10 ml 10/02/21 01:00 10/06/21 21:12 Sodium Chloride Flush 0.9% 10 Ml Syringe IVP 10 ml 0100,0900,1700 BRENDA Administration - Lab Result Fish Bone Diagrams: 10/07/21 07:55 10/07/21 07:55 - Additional Planning My Orders: My Active Orders 10/06/21 08:00 metroNIDAZOLE 500 MG/100 ML [Flagyl 500 mg/100 ml] 500 mg in 100 ml IV Q8HR 10/06/21 10:56 Ketorolac Inj (15Mg) [Toradol Inj (15Mg)] 15 mg IVP Q6HR PRN 10/06/21 11:00 allopurinoL [Zyloprim] 100 mg PO DAILY 10/07/21 07:20 BMP - BASIC METABOLIC PANEL [CHEM] Routine CBC - COMP BLD CT W/AUTO DIFF [HEME] Routine 10/08/21 05:00 BMP - BASIC METABOLIC PANEL [CHEM] DAILYLAB CBC - COMP BLD CT W/AUTO DIFF [HEME] DAILYLAB 10/09/21 05:00 BMP - BASIC METABOLIC PANEL [CHEM] DAILYLAB CBC - COMP BLD CT W/AUTO DIFF [HEME] DAILYLAB 10/10/21 05:00 BMP - BASIC METABOLIC PANEL [CHEM] DAILYLAB CBC - COMP BLD CT W/AUTO DIFF [HEME] DAILYLAB 10/11/21 05:00 BMP - BASIC METABOLIC PANEL [CHEM] DAILYLAB CBC - COMP BLD CT W/AUTO DIFF [HEME] DAILYLAB 10/12/21 05:00 BMP - BASIC METABOLIC PANEL [CHEM] DAILYLAB CBC - COMP BLD CT W/AUTO DIFF [HEME] DAILYLAB 10/13/21 05:00 BMP - BASIC METABOLIC PANEL [CHEM] DAILYLAB CBC - COMP BLD CT W/AUTO DIFF [HEME] DAILYLAB 10/14/21 05:00 BMP - BASIC METABOLIC PANEL [CHEM] DAILYLAB CBC - COMP BLD CT W/AUTO DIFF [HEME] DAILYLAB Subjective - Subjective Patient Reports: Other (Resting comfortably in bed at time of exam eating breakfast. Denies any new complaints.) Objective Vital Signs: Vital Signs - 24 hr 10/06/21 10/06/21 10/06/21 07:30 13:00 16:03 Temperature 36.7 C 36.5 C 36.3 C L Heart Rate [ 107 H 100 93 Brachial] Respiratory 16 20 18 Rate Blood Pressure 104/73 137/71 H 111/65 [Right Brachial artery] O2 Saturation 95 97 95 10/06/21 10/07/21 10/07/21 21:00 00:23 05:00 Temperature 36.5 C 36.6 C 36.6 C Heart Rate [ 80 90 108 H Brachial] Respiratory 18 20 20 Rate Blood Pressure 109/68 94/76 111/63 [Right Brachial artery] O2 Saturation 95 98 95 Oxygen O2 Source Room air I&O (Last 24 Hrs): Intake and Output Totals x24h 10/05/21 10/06/21 10/07/21 23:59 23:59 23:59 Intake Total 2240 1120 300 Output Total 1635 0600 910 Balance 309 -8131 -905 Comments/Notes: General: Alert, Oriented x3, Other (Frail/Cachexic) HEENT: PERRLA, EOMI Neck: Supple, No JVD Neuro: Alert, Non Focal, Oriented Times 3 Cardiovascular: Regular rate, No murmurs Respiratory: No respiratory distress, Other (chest tube in place) Abdomen: Normal bowel sounds, Soft, No tenderness Extremities: No cyanosis, Other (Tenderness and swelling in knee joints bilaterally) Skin: No rashes, No breakdown - Results Results: Laboratory Results WBC 12.8 x10^3/uL (4.8-10.8) H 10/06/21 05:24 RBC 3.00 10^6/uL (4.70-6.10) L 10/06/21 05:24 Hgb 11.2 g/dL (14.0-18.0) L 10/06/21 05:24 Hct 33.2 % (42.0-52.0) L 10/06/21 05:24 MCV 110.7 fL (80.0-94.0) H 10/06/21 05:24 MCH 37.3 pg (27.0-31.0) H 10/06/21 05:24 MCHC 33.7 g/dL (32.0-36.0) 10/06/21 05:24 RDW 13.5 % (12.0-15.0) 10/06/21 05:24 Plt Count 273 10^3/uL (130-450) 10/06/21 05:24 MPV 10.6 fL (7.4-11.4) 10/06/21 05:24 Neut # (Auto) 9.2 10^3/uL (1.5-6.6) H 10/06/21 05:24 Lymph # (Auto) 1.6 10^3/uL (1.5-3.5) 10/06/21 05:24 [place] # (Auto) 1.3 10^3/uL (0.0-1.0) H 10/06/21 05:24 Eos # (Auto) 0.6 10^3/uL (0.0-0.7) 10/06/21 05:24 Baso # (Auto) 0.1 10^3/uL (0.0-0.1) 10/06/21 05:24 Absolute Nucleated RBC 0.00 x10^3/uL 10/06/21 05:24 Total Counted 100 10/02/21 04:45 Band Neuts % (Manual) 0 % (0-10) 10/02/21 04:45 Abnorm Lymph % (Manual) 0 % 10/02/21 04:45 Nucleated RBC % 0.0 /100WBC 10/06/21 05:24 Neutrophils # (Manual) 15.6 10^3/uL (1.5-6.6) H 10/02/21 04:45 Lymphocytes # (Manual) 1.1 10^3/uL (1.5-3.5) L 10/02/21 04:45 Monocytes # (Manual) 1.1 10^3/uL (0.0-1.0) H 10/02/21 04:45 Eosinophils # (Manual) 0.2 10^3/uL (0-0.7) 10/02/21 04:45 Basophils # (Manual) 0.0 10^3/uL (0-0.1) 10/02/21 04:45 Differential Comment MANUAL DIFFERENTIAL 10/02/21 04:45 Manual Slide Review Indicated 10/06/21 05:24 WBC Morphology NORMAL APPEARANCE (NORMAL) 10/06/21 05:24 Platelet Estimate NORMAL (130-450,000) (NORMAL) 10/06/21 05:24 Platelet Morphology NORMAL APPEARANCE (NORMAL) 10/06/21 05:24 RBC Morph Micro Appear 1+ MACROCYTOSIS (NORMAL) 10/06/21 05:24 ESR 59 mm/Hr (0-20) H 10/01/21 18:35 PT 16.3 secs (9.9-12.6) H 10/01/21 20:43 INR 1.5 (0.8-1.2) H 10/01/21 20:43 Sodium 133 mmol/L (135-145) L 10/06/21 05:24 Potassium 3.8 mmol/L (3.5-5.0) 10/06/21 05:24 Chloride 99 mmol/L (101-111) L 10/06/21 05:24 Carbon Dioxide 26 mmol/L (21-32) 10/06/21 05:24 Anion Gap 8.0 (6-13) 10/06/21 05:24 BUN 17 mg/dL (6-20) 10/06/21 05:24 Creatinine 0.6 mg/dL (0.6-1.2) 10/06/21 05:24 Estimated GFR (MDRD) 136 (>89) 10/06/21 05:24 Glucose 113 mg/dL (70-100) H 10/06/21 05:24 Lactic Acid 0.8 mmol/L (0.5-2.2) 10/01/21 21:41 Calcium 8.2 mg/dL (8.5-10.3) L 10/06/21 05:24 Magnesium 1.7 mg/dL (1.7-2.8) 10/01/21 18:35 Total Bilirubin 2.5 mg/dL (0.2-1.0) H 10/01/21 18:35 AST 30 IU/L (10-42) 10/01/21 18:35 ALT < 10 IU/L (10-60) L 10/01/21 18:35 Alkaline Phosphatase 128 IU/L (42-121) H 10/01/21 18:35 Lactate Dehydrogenase 118 IU/L (91-225) 10/01/21 18:35 Troponin I High Sens 12.6 ng/L (2.3-19.7) 10/01/21 18:35 C-Reactive Protein 3.4 mg/dL (0-1.0) H 10/06/21 05:24 Total Protein 7.6 g/dL (6.7-8.2) 10/01/21 18:35 Albumin 2.3 g/dL (3.2-5.5) L 10/01/21 18:35 Globulin 5.3 g/dL (2.1-4.2) H 10/01/21 18:35 Albumin/Globulin Ratio 0.4 (1.0-2.2) L 10/01/21 18:35 Lipase 16 U/L (22-51) L 10/01/21 18:35 Prostate Specific Ag < 0.008 ng/mL (0.000-2.000) 10/01/21 18:35 Free PSA 0.010 ng/mL (0.16-2.81) L 10/01/21 18:35 % Free PSA Calc TNP 10/01/21 18:35 Vitamin B12 645 pg/mL (180-914) 10/02/21 04:45 Folate 5.61 ng/mL (5.90 - >24.8) L 10/02/21 04:45 Urine Color DARK YELLOW 10/02/21 13:00 Urine Clarity CLEAR (CLEAR) 10/02/21 13:00 Urine pH 6.5 PH (5.0-7.5) 10/02/21 13:00 Ur Specific [place] 1.020 (1.002-1.030) 10/02/21 13:00 Urine Protein TRACE mg/dL (NEGATIVE) 10/02/21 13:00 Urine Glucose (UA) NEGATIVE mg/dL (NEGATIVE) 10/02/21 13:00 Urine Ketones NEGATIVE mg/dL (NEGATIVE) 10/02/21 13:00 Urine Occult Blood SMALL (NEGATIVE) H 10/02/21 13:00 Urine Nitrite POSITIVE (NEGATIVE) H 10/02/21 13:00 Urine Bilirubin NEGATIVE (NEGATIVE) 10/02/21 13:00 Urine Urobilinogen 2 E.U./dL (NORMAL) H 10/02/21 13:00 Ur Leukocyte Esterase NEGATIVE (NEGATIVE) 10/02/21 13:00 Urine RBC 0-5 /HPF (0-5) 10/02/21 13:00 Urine WBC 0-3 /HPF (0-3) 10/02/21 13:00 Urine WBC Clumps NONE SEEN 10/02/21 13:00 Ur Epithelial Cells None Seen /HPF (<= Few) 10/02/21 13:00 Ur Squamous Epith Cells RARE Squamous (<= Few) 10/02/21 13:00 Urine Bacteria None Seen /HPF (None Seen) 10/02/21 13:00 Ur Microscopic Review INDICATED 10/02/21 13:00 Urine Culture Comments INDICATED 10/02/21 13:00 Fluid Source PLEURAL 10/01/21 21:20 Fluid Color YELLOW 10/01/21 21:20 Fluid Clarity HAZY 10/01/21 21:20 Fluid WBC 282 /mm^3 10/01/21 21:20 Fluid RBC 2000 /mm^3 10/01/21 21:20 Fluid Neutrophils % Not Reportable 10/01/21 21:20 Fluid Lymphocytes % 20 % 10/01/21 21:20 Fluid Monocytes % 35 % 10/01/21 21:20 Fluid Macrophages % 38 % 10/01/21 21:20 Fld Mesothelial Cell % 7 % 10/01/21 21:20 Nasal Adenovirus (PCR) NOT DETECTED 10/01/21 20:18 Nasal B. parapertussis DNA (PCR) NOT DETECTED 10/01/21 20:18 Nasal Coronavir 229E PCR NOT DETECTED 10/01/21 20:18 Nasal Coronavir HKU1 PCR NOT DETECTED 10/01/21 20:18 Nasal Coronavir NL63 PCR NOT DETECTED 10/01/21 20:18 Nasal Coronavir OC43 PCR NOT DETECTED 10/01/21 20:18 Nasal Enterovir/Rhinovir PCR NOT DETECTED 10/01/21 20:18 Nasal Influenza B PCR NOT DETECTED 10/01/21 20:18 Nasal Influenza A PCR NOT DETECTED 10/01/21 20:18 Nasal Parainfluen 1 PCR NOT DETECTED 10/01/21 20:18 Nasal Parainfluen 2 PCR NOT DETECTED 10/01/21 20:18 Nasal Parainfluen 3 PCR NOT DETECTED 10/01/21 20:18 Nasal Parainfluen 4 PCR NOT DETECTED 10/01/21 20:18 Nasal RSV (PCR) NOT DETECTED 10/01/21 20:18 Nasal B.pertussis DNA PCR NOT DETECTED 10/01/21 20:18 Nasal C.pneumoniae (PCR) NOT DETECTED 10/01/21 20:18 [place] Human Metapneumo PCR NOT DETECTED 10/01/21 20:18 Nasal M.pneumoniae (PCR) NOT DETECTED 10/01/21 20:18 Nasal SARS-CoV-2 (PCR) NOT DETECTED 10/01/21 20:18 Ethyl Alcohol < 5.0 mg/dL 10/01/21 18:35 Ref Lab Test Result REPORT 10/01/21 21:20 Ref Lab Test Result REPORT 10/01/21 21:20 Ref Lab Test Result REPORT 10/01/21 21:20 - Procedures Procedures: Procedures ENDO RECTUM POLYPECTOMY (02/23/14) ABX Reporting Has patient been on IV antibiotics over the past 48 hours?: Yes
[2021-10-07 08:14] LABS: BASOPHILS # (AUTO) 0.1 10^3/uL (0.0-0.1); BASOPHILS % (AUTO) 0.6 %; EOSINOPHILS # (AUTO) 0.5 10^3/uL (0.0-0.7); EOSINOPHILS % (AUTO) 5.2 %; HCT - HEMATOCRIT 34.3 % (42.0-52.0); HGB - HEMOGLOBIN 11.4 g/dL (14.0-18.0); LYMPHOCYTES # (AUTO) 1.2 10^3/uL (1.5-3.5); LYMPHOCYTES % (AUTO) 11.4 %; MEAN CORPUSCULAR HEMOGLOBIN 37.3 pg (27.0-31.0); MEAN CORPUSCULAR HGB CONC 33.2 g/dL (32.0-36.0); MEAN CORPUSCULAR VOLUME 112.1 fL (80.0-94.0); MEAN PLATELET VOLUME 10.1 fL (7.4-11.4); MONOCYTES # (AUTO) 0.9 10^3/uL (0.0-1.0); MONOCYTES % (AUTO) 9.1 %; NEUTROPHILS # (AUTO) 7.4 10^3/uL (1.5-6.6); NEUTROPHILS % (AUTO) 73.3 %; PLT - PLATELET COUNT 295 10^3/uL (130-450); RED BLOOD COUNT 3.06 10^6/uL (4.70-6.10); WHITE BLOOD COUNT 10.1 x10^3/uL (4.8-10.8)
[2021-10-07 08:24] LABS: CALCIUM 8.3 mg/dL (8.5-10.3); CREATININE 0.7 mg/dL (0.6-1.2); POTASSIUM 4.2 mmol/L (3.5-5.0)
--- NOTE | 2021-10-07 08:57 | PROVIDER PROGRESS NOTE ---
Assessment/Plan - Problem List (1) Parapneumonic effusion Assessment/Plan: Continued high output from right chest tube. Agree with plans for transfer to facility with thoracic surgeon for thoracoscopy and pleurodesis. - Current Meds Current Meds: Current Medications Generic Name Dose Route Start Last Admin Trade Name Freq PRN Reason Stop Dose Admin Acetaminophen 650 mg 10/01/21 21:34 10/07/21 05:11 Acetaminophen 325 Mg Tablet PO 650 mg Q4HR PRN Administration Pain 1 to 4 Allopurinol 100 mg 10/06/21 11:00 10/06/21 12:26 Allopurinol 100 Mg Tablet PO 100 mg DAILY BRENDA Administration Diphenhydramine HCl 25 mg 10/02/21 22:49 10/05/21 23:01 Diphenhydramine 25 Mg Capsule PO 25 mg QPM PRN Administration Insomnia Ceftriaxone Sodium 2 gm/ 100 mls @ 200 mls/hr 10/02/21 09:00 10/06/21 09:30 Sodium Chloride IV Infused DAILY BRENDA Infusion Metronidazole 500 mg in 100 mls @ 100 mls/hr 10/06/21 08:00 10/07/21 06:20 Flagyl 500 Mg/100 Ml IV Infused Q8HR BRENDA Infusion Ondansetron HCl 4 mg 10/01/21 21:34 10/02/21 11:44 Ondansetron 4 Mg/2 Ml Vial IVP 4 mg Q6HR PRN Administration Nausea / Vomiting Oxycodone HCl 5 mg 10/01/21 21:34 10/07/21 05:10 Oxycodone 5 Mg Tablet PO 5 mg Q4HR PRN Administration Pain 5 to 7 Multivit/Folic Acid/Iron 1 tab 10/04/21 08:00 10/06/21 08:54 Vitamin Tablet PO 1 tab DAILYWM BRENDA Administration Sodium Chloride 10 ml 10/01/21 21:34 10/07/21 05:20 Sodium Chloride Flush 0.9% 10 Ml Syringe IVP 10 ml PRN PRN Administration NEEDED PER PROVIDER ORDERS Sodium Chloride 10 ml 10/02/21 01:00 10/06/21 21:12 Sodium Chloride Flush 0.9% 10 Ml Syringe IVP 10 ml 0100,0900,1700 BRENDA Administration - Lab Result Fish Bone Diagrams: 10/07/21 07:55 10/07/21 07:55 Subjective - Subjective Patient Reports: Resting Comfortably Objective Vital Signs: Vital Signs - 24 hr 10/06/21 10/06/21 10/06/21 13:00 16:03 21:00 Temperature 36.5 C 36.3 C L 36.5 C Heart Rate [ 100 93 80 Brachial] Respiratory 20 18 18 Rate Blood Pressure 137/71 H 111/65 109/68 [Right Brachial artery] O2 Saturation 97 95 95 10/07/21 10/07/21 10/07/21 00:23 05:00 07:53 Temperature 36.6 C 36.6 C 36.7 C Heart Rate [ 90 108 H 106 H Brachial] Respiratory 20 20 18 Rate Blood Pressure 94/76 111/63 112/67 [Right Brachial artery] O2 Saturation 98 95 96 Oxygen O2 Source Room air I&O (Last 24 Hrs): Intake and Output Totals x24h 10/05/21 10/06/21 10/07/21 23:59 23:59 23:59 Intake Total 2240 1120 300 Output Total 1635 9495 910 Balance 605 -9209 -770 General: Alert, No acute distress - Results Results: Laboratory Results WBC 10.1 x10^3/uL (4.8-10.8) 10/07/21 07:55 RBC 3.06 10^6/uL (4.70-6.10) L 10/07/21 07:55 Hgb 11.4 g/dL (14.0-18.0) L 10/07/21 07:55 Hct 34.3 % (42.0-52.0) L 10/07/21 07:55 MCV 112.1 fL (80.0-94.0) H 10/07/21 07:55 MCH 37.3 pg (27.0-31.0) H 10/07/21 07:55 MCHC 33.2 g/dL (32.0-36.0) 10/07/21 07:55 RDW 14.0 % (12.0-15.0) 10/07/21 07:55 Plt Count 295 10^3/uL (130-450) 10/07/21 07:55 MPV 10.1 fL (7.4-11.4) 10/07/21 07:55 Neut # (Auto) 7.4 10^3/uL (1.5-6.6) H 10/07/21 07:55 Lymph # (Auto) 1.2 10^3/uL (1.5-3.5) L 10/07/21 07:55 [place] # (Auto) 0.9 10^3/uL (0.0-1.0) 10/07/21 07:55 Eos # (Auto) 0.5 10^3/uL (0.0-0.7) 10/07/21 07:55 Baso # (Auto) 0.1 10^3/uL (0.0-0.1) 10/07/21 07:55 Absolute Nucleated RBC 0.00 x10^3/uL 10/07/21 07:55 Total Counted 100 10/02/21 04:45 Band Neuts % (Manual) 0 % (0-10) 10/02/21 04:45 Abnorm Lymph % (Manual) 0 % 10/02/21 04:45 Nucleated RBC % 0.0 /100WBC 10/07/21 07:55 Neutrophils # (Manual) 15.6 10^3/uL (1.5-6.6) H 10/02/21 04:45 Lymphocytes # (Manual) 1.1 10^3/uL (1.5-3.5) L 10/02/21 04:45 Monocytes # (Manual) 1.1 10^3/uL (0.0-1.0) H 10/02/21 04:45 Eosinophils # (Manual) 0.2 10^3/uL (0-0.7) 10/02/21 04:45 Basophils # (Manual) 0.0 10^3/uL (0-0.1) 10/02/21 04:45 Differential Comment MANUAL DIFFERENTIAL 10/02/21 04:45 Manual Slide Review Indicated 10/06/21 05:24 WBC Morphology NORMAL APPEARANCE (NORMAL) 10/06/21 05:24 Platelet Estimate NORMAL (130-450,000) (NORMAL) 10/06/21 05:24 Platelet Morphology NORMAL APPEARANCE (NORMAL) 10/06/21 05:24 RBC Morph Micro Appear 1+ MACROCYTOSIS (NORMAL) 10/06/21 05:24 ESR 59 mm/Hr (0-20) H 10/01/21 18:35 PT 16.3 secs (9.9-12.6) H 10/01/21 20:43 INR 1.5 (0.8-1.2) H 10/01/21 20:43 Sodium 134 mmol/L (135-145) L 10/07/21 07:55 Potassium 4.2 mmol/L (3.5-5.0) 10/07/21 07:55 Chloride 99 mmol/L (101-111) L 10/07/21 07:55 Carbon Dioxide 27 mmol/L (21-32) 10/07/21 07:55 Anion Gap 8.0 (6-13) 10/07/21 07:55 BUN 16 mg/dL (6-20) 10/07/21 07:55 Creatinine 0.7 mg/dL (0.6-1.2) 10/07/21 07:55 Estimated GFR (MDRD) 114 (>89) 10/07/21 07:55 Glucose 134 mg/dL (70-100) H 10/07/21 07:55 Lactic Acid 0.8 mmol/L (0.5-2.2) 10/01/21 21:41 Calcium 8.3 mg/dL (8.5-10.3) L 10/07/21 07:55 Magnesium 1.7 mg/dL (1.7-2.8) 10/01/21 18:35 Total Bilirubin 2.5 mg/dL (0.2-1.0) H 10/01/21 18:35 AST 30 IU/L (10-42) 10/01/21 18:35 ALT < 10 IU/L (10-60) L 10/01/21 18:35 Alkaline Phosphatase 128 IU/L (42-121) H 10/01/21 18:35 Lactate Dehydrogenase 118 IU/L (91-225) 10/01/21 18:35 Troponin I High Sens 12.6 ng/L (2.3-19.7) 10/01/21 18:35 C-Reactive Protein 3.4 mg/dL (0-1.0) H 10/06/21 05:24 Total Protein 7.6 g/dL (6.7-8.2) 10/01/21 18:35 Albumin 2.3 g/dL (3.2-5.5) L 10/01/21 18:35 Globulin 5.3 g/dL (2.1-4.2) H 10/01/21 18:35 Albumin/Globulin Ratio 0.4 (1.0-2.2) L 10/01/21 18:35 Lipase 16 U/L (22-51) L 10/01/21 18:35 Prostate Specific Ag < 0.008 ng/mL (0.000-2.000) 10/01/21 18:35 Free PSA 0.010 ng/mL (0.16-2.81) L 10/01/21 18:35 % Free PSA Calc TNP 10/01/21 18:35 Vitamin B12 645 pg/mL (180-914) 10/02/21 04:45 Folate 5.61 ng/mL (5.90 - >24.8) L 10/02/21 04:45 Urine Color DARK YELLOW 10/02/21 13:00 Urine Clarity CLEAR (CLEAR) 10/02/21 13:00 Urine pH 6.5 PH (5.0-7.5) 10/02/21 13:00 Ur Specific [place] 1.020 (1.002-1.030) 10/02/21 13:00 Urine Protein TRACE mg/dL (NEGATIVE) 10/02/21 13:00 Urine Glucose (UA) NEGATIVE mg/dL (NEGATIVE) 10/02/21 13:00 Urine Ketones NEGATIVE mg/dL (NEGATIVE) 10/02/21 13:00 Urine Occult Blood SMALL (NEGATIVE) H 10/02/21 13:00 Urine Nitrite POSITIVE (NEGATIVE) H 10/02/21 13:00 Urine Bilirubin NEGATIVE (NEGATIVE) 10/02/21 13:00 Urine Urobilinogen 2 E.U./dL (NORMAL) H 10/02/21 13:00 Ur Leukocyte Esterase NEGATIVE (NEGATIVE) 10/02/21 13:00 Urine RBC 0-5 /HPF (0-5) 10/02/21 13:00 Urine WBC 0-3 /HPF (0-3) 10/02/21 13:00 Urine WBC Clumps NONE SEEN 10/02/21 13:00 Ur Epithelial Cells None Seen /HPF (<= Few) 10/02/21 13:00 Ur Squamous Epith Cells RARE Squamous (<= Few) 10/02/21 13:00 Urine Bacteria None Seen /HPF (None Seen) 10/02/21 13:00 Ur Microscopic Review INDICATED 10/02/21 13:00 Urine Culture Comments INDICATED 10/02/21 13:00 Fluid Source PLEURAL 10/01/21 21:20 Fluid Color YELLOW 10/01/21 21:20 Fluid Clarity HAZY 10/01/21 21:20 Fluid WBC 282 /mm^3 10/01/21 21:20 Fluid RBC 2000 /mm^3 10/01/21 21:20 Fluid Neutrophils % Not Reportable 10/01/21 21:20 Fluid Lymphocytes % 20 % 10/01/21 21:20 Fluid Monocytes % 35 % 10/01/21 21:20 Fluid Macrophages % 38 % 10/01/21 21:20 Fld Mesothelial Cell % 7 % 10/01/21 21:20 Nasal Adenovirus (PCR) NOT DETECTED 10/01/21 20:18 Nasal B. parapertussis DNA (PCR) NOT DETECTED 10/01/21 20:18 Nasal Coronavir 229E PCR NOT DETECTED 10/01/21 20:18 Nasal Coronavir HKU1 PCR NOT DETECTED 10/01/21 20:18 Nasal Coronavir NL63 PCR NOT DETECTED 10/01/21 20:18 Nasal Coronavir OC43 PCR NOT DETECTED 10/01/21 20:18 Nasal Enterovir/Rhinovir PCR NOT DETECTED 10/01/21 20:18 Nasal Influenza B PCR NOT DETECTED 10/01/21 20:18 Nasal Influenza A PCR NOT DETECTED 10/01/21 20:18 Nasal Parainfluen 1 PCR NOT DETECTED 10/01/21 20:18 Nasal Parainfluen 2 PCR NOT DETECTED 10/01/21 20:18 Nasal Parainfluen 3 PCR NOT DETECTED 10/01/21 20:18 Nasal Parainfluen 4 PCR NOT DETECTED 10/01/21 20:18 Nasal RSV (PCR) NOT DETECTED 10/01/21 20:18 Nasal B.pertussis DNA PCR NOT DETECTED 10/01/21 20:18 Nasal C.pneumoniae (PCR) NOT DETECTED 10/01/21 20:18 [place] Human Metapneumo PCR NOT DETECTED 10/01/21 20:18 Nasal M.pneumoniae (PCR) NOT DETECTED 10/01/21 20:18 Nasal SARS-CoV-2 (PCR) NOT DETECTED 10/01/21 20:18 Ethyl Alcohol < 5.0 mg/dL 10/01/21 18:35 Ref Lab Test Result REPORT 10/01/21 21:20 Ref Lab Test Result REPORT 10/01/21 21:20 Ref Lab Test Result REPORT 10/01/21 21:20 - Procedures Procedures: Procedures ENDO RECTUM POLYPECTOMY (02/23/14)
[2021-10-07] MEDS: allopurinoL 100 MG TABLET PO SCH (09:02)
[2021-10-07] MEDS: PRENATAL VITAMIN TABLET PO SCH (09:03)
[2021-10-07] MEDS: cefTRIAXone 2 GM in SODIUM CHLORIDE 0.9% MINIBAG 100 ML IV SCH (09:03)
[2021-10-07] MEDS: SODIUM CHLORIDE FLUSH 0.9% 10 ML SYRINGE IVP SCH ×3 (09:03→21:30)
[2021-10-08] MEDS: ACETAMINOPHEN 325 MG TABLET PO PRN ×3 (01:06→20:44)
[2021-10-08] MEDS: oxyCODONE 5 MG TABLET PO PRN ×3 (01:06→20:44)
[2021-10-08 05:38] LABS: BASOPHILS # (AUTO) 0.1 10^3/uL (0.0-0.1); BASOPHILS % (AUTO) 0.5 %; EOSINOPHILS # (AUTO) 0.6 10^3/uL (0.0-0.7); EOSINOPHILS % (AUTO) 6.1 %; HCT - HEMATOCRIT 32.5 % (42.0-52.0); HGB - HEMOGLOBIN 10.9 g/dL (14.0-18.0); LYMPHOCYTES # (AUTO) 1.9 10^3/uL (1.5-3.5); LYMPHOCYTES % (AUTO) 19.5 %; MEAN CORPUSCULAR HEMOGLOBIN 37.5 pg (27.0-31.0); MEAN CORPUSCULAR HGB CONC 33.5 g/dL (32.0-36.0); MEAN CORPUSCULAR VOLUME 111.7 fL (80.0-94.0); MEAN PLATELET VOLUME 10.1 fL (7.4-11.4); MONOCYTES # (AUTO) 1.2 10^3/uL (0.0-1.0); MONOCYTES % (AUTO) 12.2 %; NEUTROPHILS % (AUTO) 61.2 %; PLT - PLATELET COUNT 324 10^3/uL (130-450); RED BLOOD COUNT 2.91 10^6/uL (4.70-6.10); RED CELL DISTRIBUTION WIDTH 14.4 % (12.0-15.0); WHITE BLOOD COUNT 9.8 x10^3/uL (4.8-10.8)
[2021-10-08] MEDS: metroNIDAZOLE 500 MG/100 ML 500 MG/100 ML BAG IV SCH ×3 (05:39→22:45)
[2021-10-08 05:48] LABS: CREATININE 0.7 mg/dL (0.6-1.2); POTASSIUM 4.2 mmol/L (3.5-5.0)
[2021-10-08 05:57] LABS: SLIDE REVIEW? Indicated
[2021-10-08 05:58] LABS: PLATELET ESTIMATE, MANUAL NORMAL (130-450,000) (NORMAL); PLATELET MORPHOLOGY NORMAL APPEARANCE (NORMAL); RBC MORPHOLOGY (MULTIPLE) 1+ MACROCYTOSIS (NORMAL); WBC MORPHOLOGY (MULTIPLE) NORMAL APPEARANCE (NORMAL)
--- NOTE | 2021-10-08 08:16 | PROVIDER PROGRESS NOTE ---
Assessment/Plan - Problem List (1) Parapneumonic effusion Assessment/Plan: Etiology undetermined. Suspect infection vs malnutrition. Patient had a chest tube placed in the ED. General surgery managing chest tube. Patient continues to have high volume output from the chest tube. Per Dr Bhatt, patient will likely need to undergo pleurodesis due to continuous significant fluid drainage from chest tube Working on transfering patient for possible procedure in the following days. Analysis of fluid indicates a transudative fluid collection. Pathology report on fluid was negative for any malignant cells. On Rocephin empirically. Flagyl resumed 10/06/21. Will continue. Blood cultures are no growth to date x5 days. White blood count continues to improve steadily. White blood cell count was 9.8 today. (2) Protein-calorie malnutrition, severe Assessment/Plan: Patient has significant muscle wasting, loss of subcutaneous fat. Nutrition intake is less than 50% of recommended intake for greater than 2 weeks. He has experienced a greater than 11% weight loss in 6 month This is likely related to patient's prostate cancer and treatment for prostate cancer. Nutrition following. Will continue to encourage increased oral intake. (3) Prostate cancer Assessment/Plan: This is in remission per the patient. He was treated with radiation therapy. His oncologist is at [place]. PSA was not detectable. (4) Knee pain, right anterior Assessment/Plan: Imaging was unremarkable. His physical exam does reveal tenderness over the medial and lateral aspects but no obvious erythema or bruising. Todadol IV prn added to medications Allopurinol 100mg p.o daily resumed. - Current Meds Current Meds: Current Medications Generic Name Dose Route Start Last Admin Trade Name Ruizq PRN Reason Stop Dose Admin Acetaminophen 650 mg 10/01/21 21:34 10/08/21 01:06 Acetaminophen 325 Mg Tablet PO 650 mg Q4HR PRN Administration Pain 1 to 4 Allopurinol 100 mg 10/06/21 11:00 10/07/21 09:02 Allopurinol 100 Mg Tablet PO 100 mg DAILY BRENDA Administration Diphenhydramine HCl 25 mg 10/02/21 22:49 10/05/21 23:01 Diphenhydramine 25 Mg Capsule PO 25 mg QPM PRN Administration Insomnia Ceftriaxone Sodium 2 gm/ 100 mls @ 200 mls/hr 10/02/21 09:00 10/07/21 09:35 Sodium Chloride IV Infused DAILY BRENDA Infusion Metronidazole 500 mg in 100 mls @ 100 mls/hr 10/06/21 08:00 10/08/21 06:30 Flagyl 500 Mg/100 Ml IV Infused Q8HR BRENDA Infusion Ondansetron HCl 4 mg 10/01/21 21:34 10/02/21 11:44 Ondansetron 4 Mg/2 Ml Vial IVP 4 mg Q6HR PRN Administration Nausea / Vomiting Oxycodone HCl 5 mg 10/01/21 21:34 10/08/21 01:06 Oxycodone 5 Mg Tablet PO 5 mg Q4HR PRN Administration Pain 5 to 7 Multivit/Folic Acid/Iron 1 tab 10/04/21 08:00 10/07/21 09:03 Vitamin Tablet PO 1 tab DAILYWM BRENDA Administration Sodium Chloride 10 ml 10/01/21 21:34 10/07/21 05:20 Sodium Chloride Flush 0.9% 10 Ml Syringe IVP 10 ml PRN PRN Administration NEEDED PER PROVIDER ORDERS Sodium Chloride 10 ml 10/02/21 01:00 10/07/21 21:30 Sodium Chloride Flush 0.9% 10 Ml Syringe IVP 10 ml 0100,0900,1700 BRENDA Administration - Lab Result Fish Bone Diagrams: 10/08/21 05:25 10/08/21 05:25 - Additional Planning My Orders: My Active Orders 10/09/21 05:00 BMP - BASIC METABOLIC PANEL [CHEM] DAILYLAB CBC - COMP BLD CT W/AUTO DIFF [HEME] DAILYLAB 10/10/21 05:00 BMP - BASIC METABOLIC PANEL [CHEM] DAILYLAB CBC - COMP BLD CT W/AUTO DIFF [HEME] DAILYLAB 10/11/21 05:00 BMP - BASIC METABOLIC PANEL [CHEM] DAILYLAB CBC - COMP BLD CT W/AUTO DIFF [HEME] DAILYLAB 10/12/21 05:00 BMP - BASIC METABOLIC PANEL [CHEM] DAILYLAB CBC - COMP BLD CT W/AUTO DIFF [HEME] DAILYLAB 10/13/21 05:00 BMP - BASIC METABOLIC PANEL [CHEM] DAILYLAB CBC - COMP BLD CT W/AUTO DIFF [HEME] DAILYLAB 10/14/21 05:00 BMP - BASIC METABOLIC PANEL [CHEM] DAILYLAB CBC - COMP BLD CT W/AUTO DIFF [HEME] DAILYLAB Subjective - Subjective Patient Reports: Other (Resting comfortably in bed at time of exam. Denies any new complaints.) Objective Vital Signs: Vital Signs - 24 hr 10/07/21 10/07/21 10/07/21 13:00 15:47 19:53 Temperature 36.8 C 36.8 C 36.8 C Heart Rate [ 71 95 101 H Brachial] Respiratory 16 18 18 Rate Blood Pressure 125/77 101/60 114/62 [Right Brachial artery] O2 Saturation 99 95 97 10/08/21 10/08/21 01:02 05:48 Temperature 36.7 C 36.7 C Heart Rate [ 101 H 102 H Brachial] Respiratory 17 14 Rate Blood Pressure 101/54 L 117/66 [Right Brachial artery] O2 Saturation 97 94 Oxygen O2 Source Room air I&O (Last 24 Hrs): Intake and Output Totals x24h 10/06/21 10/07/21 10/08/21 23:59 23:59 23:59 Intake Total 1120 1400 100 Output Total 2795 9470 600 Balance -0524 -779 -690 Comments/Notes: General: Alert, Oriented x3, Other (Frail/Cachexic) HEENT: PERRLA, EOMI Neck: Supple, No JVD Neuro: Alert, Non Focal, Oriented Times 3 Cardiovascular: Regular rate, No murmurs Respiratory: No respiratory distress, Other (chest tube in place) Abdomen: Normal bowel sounds, Soft, No tenderness Extremities: No cyanosis, Other (Tenderness and swelling in knee joints bilaterally) Skin: No rashes, No breakdown - Results Results: Laboratory Results WBC 9.8 x10^3/uL (4.8-10.8) 10/08/21 05:25 RBC 2.91 10^6/uL (4.70-6.10) L 10/08/21 05:25 Hgb 10.9 g/dL (14.0-18.0) L 10/08/21 05:25 Hct 32.5 % (42.0-52.0) L 10/08/21 05:25 MCV 111.7 fL (80.0-94.0) H 10/08/21 05:25 MCH 37.5 pg (27.0-31.0) H 10/08/21 05:25 MCHC 33.5 g/dL (32.0-36.0) 10/08/21 05:25 RDW 14.4 % (12.0-15.0) 10/08/21 05:25 Plt Count 324 10^3/uL (130-450) 10/08/21 05:25 MPV 10.1 fL (7.4-11.4) 10/08/21 05:25 Neut # (Auto) 6.0 10^3/uL (1.5-6.6) 10/08/21 05:25 Lymph # (Auto) 1.9 10^3/uL (1.5-3.5) 10/08/21 05:25 [place] # (Auto) 1.2 10^3/uL (0.0-1.0) H 10/08/21 05:25 Eos # (Auto) 0.6 10^3/uL (0.0-0.7) 10/08/21 05:25 Baso # (Auto) 0.1 10^3/uL (0.0-0.1) 10/08/21 05:25 Absolute Nucleated RBC 0.00 x10^3/uL 10/08/21 05:25 Total Counted 100 10/02/21 04:45 Band Neuts % (Manual) 0 % (0-10) 10/02/21 04:45 Abnorm Lymph % (Manual) 0 % 10/02/21 04:45 Nucleated RBC % 0.0 /100WBC 10/08/21 05:25 Neutrophils # (Manual) 15.6 10^3/uL (1.5-6.6) H 10/02/21 04:45 Lymphocytes # (Manual) 1.1 10^3/uL (1.5-3.5) L 10/02/21 04:45 Monocytes # (Manual) 1.1 10^3/uL (0.0-1.0) H 10/02/21 04:45 Eosinophils # (Manual) 0.2 10^3/uL (0-0.7) 10/02/21 04:45 Basophils # (Manual) 0.0 10^3/uL (0-0.1) 10/02/21 04:45 Differential Comment MANUAL DIFFERENTIAL 10/02/21 04:45 Manual Slide Review Indicated 10/08/21 05:25 WBC Morphology NORMAL APPEARANCE (NORMAL) 10/08/21 05:25 Platelet Estimate NORMAL (130-450,000) (NORMAL) 10/08/21 05:25 Platelet Morphology NORMAL APPEARANCE (NORMAL) 10/08/21 05:25 RBC Morph Micro Appear 1+ MACROCYTOSIS (NORMAL) 10/08/21 05:25 ESR 59 mm/Hr (0-20) H 10/01/21 18:35 PT 16.3 secs (9.9-12.6) H 10/01/21 20:43 INR 1.5 (0.8-1.2) H 10/01/21 20:43 Sodium 131 mmol/L (135-145) L 10/08/21 05:25 Potassium 4.2 mmol/L (3.5-5.0) 10/08/21 05:25 Chloride 97 mmol/L (101-111) L 10/08/21 05:25 Carbon Dioxide 26 mmol/L (21-32) 10/08/21 05:25 Anion Gap 8.0 (6-13) 10/08/21 05:25 BUN 15 mg/dL (6-20) 10/08/21 05:25 Creatinine 0.7 mg/dL (0.6-1.2) 10/08/21 05:25 Estimated GFR (MDRD) 114 (>89) 10/08/21 05:25 Glucose 99 mg/dL (70-100) 10/08/21 05:25 Lactic Acid 0.8 mmol/L (0.5-2.2) 10/01/21 21:41 Calcium 8.0 mg/dL (8.5-10.3) L 10/08/21 05:25 Magnesium 1.7 mg/dL (1.7-2.8) 10/01/21 18:35 Total Bilirubin 2.5 mg/dL (0.2-1.0) H 10/01/21 18:35 AST 30 IU/L (10-42) 10/01/21 18:35 ALT < 10 IU/L (10-60) L 10/01/21 18:35 Alkaline Phosphatase 128 IU/L (42-121) H 10/01/21 18:35 Lactate Dehydrogenase 118 IU/L (91-225) 10/01/21 18:35 Troponin I High Sens 12.6 ng/L (2.3-19.7) 10/01/21 18:35 C-Reactive Protein 3.4 mg/dL (0-1.0) H 10/06/21 05:24 Total Protein 7.6 g/dL (6.7-8.2) 10/01/21 18:35 Albumin 2.3 g/dL (3.2-5.5) L 10/01/21 18:35 Globulin 5.3 g/dL (2.1-4.2) H 10/01/21 18:35 Albumin/Globulin Ratio 0.4 (1.0-2.2) L 10/01/21 18:35 Lipase 16 U/L (22-51) L 10/01/21 18:35 Prostate Specific Ag < 0.008 ng/mL (0.000-2.000) 10/01/21 18:35 Free PSA 0.010 ng/mL (0.16-2.81) L 10/01/21 18:35 % Free PSA Calc TNP 10/01/21 18:35 Vitamin B12 645 pg/mL (180-914) 10/02/21 04:45 Folate 5.61 ng/mL (5.90 - >24.8) L 10/02/21 04:45 Urine Color DARK YELLOW 10/02/21 13:00 Urine Clarity CLEAR (CLEAR) 10/02/21 13:00 Urine pH 6.5 PH (5.0-7.5) 10/02/21 13:00 Ur Specific Breaks 1.020 (1.002-1.030) 10/02/21 13:00 Urine Protein TRACE mg/dL (NEGATIVE) 10/02/21 13:00 Urine Glucose (UA) NEGATIVE mg/dL (NEGATIVE) 10/02/21 13:00 Urine Ketones NEGATIVE mg/dL (NEGATIVE) 10/02/21 13:00 Urine Occult Blood SMALL (NEGATIVE) H 10/02/21 13:00 Urine Nitrite POSITIVE (NEGATIVE) H 10/02/21 13:00 Urine Bilirubin NEGATIVE (NEGATIVE) 10/02/21 13:00 Urine Urobilinogen 2 E.U./dL (NORMAL) H 10/02/21 13:00 Ur Leukocyte Esterase NEGATIVE (NEGATIVE) 10/02/21 13:00 Urine RBC 0-5 /HPF (0-5) 10/02/21 13:00 Urine WBC 0-3 /HPF (0-3) 10/02/21 13:00 Urine WBC Clumps NONE SEEN 10/02/21 13:00 Ur Epithelial Cells None Seen /HPF (<= Few) 10/02/21 13:00 Ur Squamous Epith Cells RARE Squamous (<= Few) 10/02/21 13:00 Urine Bacteria None Seen /HPF (None Seen) 10/02/21 13:00 Ur Microscopic Review INDICATED 10/02/21 13:00 Urine Culture Comments INDICATED 10/02/21 13:00 Fluid Source PLEURAL 10/01/21 21:20 Fluid Color YELLOW 10/01/21 21:20 Fluid Clarity HAZY 10/01/21 21:20 Fluid WBC 282 /mm^3 10/01/21 21:20 Fluid RBC 2000 /mm^3 10/01/21 21:20 Fluid Neutrophils % Not Reportable 10/01/21 21:20 Fluid Lymphocytes % 20 % 10/01/21 21:20 Fluid Monocytes % 35 % 10/01/21 21:20 Fluid Macrophages % 38 % 10/01/21 21:20 Fld Mesothelial Cell % 7 % 10/01/21 21:20 Nasal Adenovirus (PCR) NOT DETECTED 10/01/21 20:18 Nasal B. parapertussis DNA (PCR) NOT DETECTED 10/01/21 20:18 Nasal Coronavir 229E PCR NOT DETECTED 10/01/21 20:18 Nasal Coronavir HKU1 PCR NOT DETECTED 10/01/21 20:18 Nasal Coronavir NL63 PCR NOT DETECTED 10/01/21 20:18 Nasal Coronavir OC43 PCR NOT DETECTED 10/01/21 20:18 Nasal Enterovir/Rhinovir PCR NOT DETECTED 10/01/21 20:18 Nasal Influenza B PCR NOT DETECTED 10/01/21 20:18 Nasal Influenza A PCR NOT DETECTED 10/01/21 20:18 Nasal Parainfluen 1 PCR NOT DETECTED 10/01/21 20:18 Nasal Parainfluen 2 PCR NOT DETECTED 10/01/21 20:18 Nasal Parainfluen 3 PCR NOT DETECTED 10/01/21 20:18 Nasal Parainfluen 4 PCR NOT DETECTED 10/01/21 20:18 Nasal RSV (PCR) NOT DETECTED 10/01/21 20:18 Nasal B.pertussis DNA PCR NOT DETECTED 10/01/21 20:18 Nasal C.pneumoniae (PCR) NOT DETECTED 10/01/21 20:18 Caesar Human Metapneumo PCR NOT DETECTED 10/01/21 20:18 Nasal M.pneumoniae (PCR) NOT DETECTED 10/01/21 20:18 Nasal SARS-CoV-2 (PCR) NOT DETECTED 10/01/21 20:18 Ethyl Alcohol < 5.0 mg/dL 10/01/21 18:35 Ref Lab Test Result REPORT 10/01/21 21:20 Ref Lab Test Result REPORT 10/01/21 21:20 Ref Lab Test Result REPORT 10/01/21 21:20 - Procedures Procedures: Procedures ENDO RECTUM POLYPECTOMY (02/23/14) ABX Reporting Has patient been on IV antibiotics over the past 48 hours?: Yes
[2021-10-08] MEDS: allopurinoL 100 MG TABLET PO SCH (08:57)
[2021-10-08] MEDS: PRENATAL VITAMIN TABLET PO SCH (08:57)
[2021-10-08] MEDS: cefTRIAXone 2 GM in SODIUM CHLORIDE 0.9% MINIBAG 100 ML IV SCH (08:58)
[2021-10-08] MEDS: SODIUM CHLORIDE FLUSH 0.9% 10 ML SYRINGE IVP SCH ×3 (08:58→22:45)
--- NOTE | 2021-10-08 10:12 | PROVIDER PROGRESS NOTE ---
Assessment/Plan - Problem List (1) Parapneumonic effusion Assessment/Plan: Persistent transudative effusion, about 2 liters output yesterday. Cytology benign. On ceftriaxone for pneumonia. No cough. Chest tube in position. A: Persistent transudative right pleural effusion. P: Discussed with Dr Baldwin, who will work on transfer of patient to a facility with thoracic surgery available. - Current Meds Current Meds: Current Medications Generic Name Dose Route Start Last Admin Trade Name Freq PRN Reason Stop Dose Admin Acetaminophen 650 mg 10/01/21 21:34 10/08/21 08:57 Acetaminophen 325 Mg Tablet PO 650 mg Q4HR PRN Administration Pain 1 to 4 Allopurinol 100 mg 10/06/21 11:00 10/08/21 08:57 Allopurinol 100 Mg Tablet PO 100 mg DAILY BRENDA Administration Diphenhydramine HCl 25 mg 10/02/21 22:49 10/05/21 23:01 Diphenhydramine 25 Mg Capsule PO 25 mg QPM PRN Administration Insomnia Ceftriaxone Sodium 2 gm/ 100 mls @ 200 mls/hr 10/02/21 09:00 10/08/21 08:58 Sodium Chloride IV 200 mls/hr DAILY BRENDA Administration Metronidazole 500 mg in 100 mls @ 100 mls/hr 10/06/21 08:00 10/08/21 06:30 Flagyl 500 Mg/100 Ml IV Infused Q8HR BRENDA Infusion Ondansetron HCl 4 mg 10/01/21 21:34 10/02/21 11:44 Ondansetron 4 Mg/2 Ml Vial IVP 4 mg Q6HR PRN Administration Nausea / Vomiting Oxycodone HCl 5 mg 10/01/21 21:34 10/08/21 08:57 Oxycodone 5 Mg Tablet PO 5 mg Q4HR PRN Administration Pain 5 to 7 Multivit/Folic Acid/Iron 1 tab 10/04/21 08:00 10/08/21 08:57 Vitamin Tablet PO 1 tab DAILYWM BRENDA Administration Sodium Chloride 10 ml 10/01/21 21:34 10/07/21 05:20 Sodium Chloride Flush 0.9% 10 Ml Syringe IVP 10 ml PRN PRN Administration NEEDED PER PROVIDER ORDERS Sodium Chloride 10 ml 10/02/21 01:00 10/08/21 08:58 Sodium Chloride Flush 0.9% 10 Ml Syringe IVP 10 ml 0100,0900,1700 [facility] Administration - Lab Result Fish Bone Diagrams: 10/08/21 05:25 10/08/21 05:25 Objective Vital Signs: Vital Signs - 24 hr 10/07/21 10/07/21 10/07/21 13:00 15:47 19:53 Temperature 36.8 C 36.8 C 36.8 C Heart Rate [ 71 95 101 H Brachial] Respiratory 16 18 18 Rate Blood Pressure 125/77 101/60 114/62 [Right Brachial artery] O2 Saturation 99 95 97 10/08/21 10/08/21 10/08/21 01:02 05:48 08:48 Temperature 36.7 C 36.7 C 36.6 C Heart Rate [ 101 H 102 H 105 H Brachial] Respiratory 17 14 16 Rate Blood Pressure 101/54 L 117/66 107/57 L [Right Brachial artery] O2 Saturation 97 94 96 Oxygen O2 Source Room air I&O (Last 24 Hrs): Intake and Output Totals x24h 10/06/21 10/07/21 10/08/21 23:59 23:59 23:59 Intake Total 1120 1400 100 Output Total 2795 2240 600 Balance -8793 -987 -500 - Results Results: Laboratory Results WBC 9.8 x10^3/uL (4.8-10.8) 10/08/21 05:25 RBC 2.91 10^6/uL (4.70-6.10) L 10/08/21 05:25 Hgb 10.9 g/dL (14.0-18.0) L 10/08/21 05:25 Hct 32.5 % (42.0-52.0) L 10/08/21 05:25 MCV 111.7 fL (80.0-94.0) H 10/08/21 05:25 MCH 37.5 pg (27.0-31.0) H 10/08/21 05:25 MCHC 33.5 g/dL (32.0-36.0) 10/08/21 05:25 RDW 14.4 % (12.0-15.0) 10/08/21 05:25 Plt Count 324 10^3/uL (130-450) 10/08/21 05:25 MPV 10.1 fL (7.4-11.4) 10/08/21 05:25 Neut # (Auto) 6.0 10^3/uL (1.5-6.6) 10/08/21 05:25 Lymph # (Auto) 1.9 10^3/uL (1.5-3.5) 10/08/21 05:25 [place] # (Auto) 1.2 10^3/uL (0.0-1.0) H 10/08/21 05:25 Eos # (Auto) 0.6 10^3/uL (0.0-0.7) 10/08/21 05:25 Baso # (Auto) 0.1 10^3/uL (0.0-0.1) 10/08/21 05:25 Absolute Nucleated RBC 0.00 x10^3/uL 10/08/21 05:25 Total Counted 100 10/02/21 04:45 Band Neuts % (Manual) 0 % (0-10) 10/02/21 04:45 Abnorm Lymph % (Manual) 0 % 10/02/21 04:45 Nucleated RBC % 0.0 /100WBC 10/08/21 05:25 Neutrophils # (Manual) 15.6 10^3/uL (1.5-6.6) H 10/02/21 04:45 Lymphocytes # (Manual) 1.1 10^3/uL (1.5-3.5) L 10/02/21 04:45 Monocytes # (Manual) 1.1 10^3/uL (0.0-1.0) H 10/02/21 04:45 Eosinophils # (Manual) 0.2 10^3/uL (0-0.7) 10/02/21 04:45 Basophils # (Manual) 0.0 10^3/uL (0-0.1) 10/02/21 04:45 Differential Comment MANUAL DIFFERENTIAL 10/02/21 04:45 Manual Slide Review Indicated 10/08/21 05:25 WBC Morphology NORMAL APPEARANCE (NORMAL) 10/08/21 05:25 Platelet Estimate NORMAL (130-450,000) (NORMAL) 10/08/21 05:25 Platelet Morphology NORMAL APPEARANCE (NORMAL) 10/08/21 05:25 RBC Morph Micro Appear 1+ MACROCYTOSIS (NORMAL) 10/08/21 05:25 ESR 59 mm/Hr (0-20) H 10/01/21 18:35 PT 16.3 secs (9.9-12.6) H 10/01/21 20:43 INR 1.5 (0.8-1.2) H 10/01/21 20:43 Sodium 131 mmol/L (135-145) L 10/08/21 05:25 Potassium 4.2 mmol/L (3.5-5.0) 10/08/21 05:25 Chloride 97 mmol/L (101-111) L 10/08/21 05:25 Carbon Dioxide 26 mmol/L (21-32) 10/08/21 05:25 Anion Gap 8.0 (6-13) 10/08/21 05:25 BUN 15 mg/dL (6-20) 10/08/21 05:25 Creatinine 0.7 mg/dL (0.6-1.2) 10/08/21 05:25 Estimated GFR (MDRD) 114 (>89) 10/08/21 05:25 Glucose 99 mg/dL (70-100) 10/08/21 05:25 Lactic Acid 0.8 mmol/L (0.5-2.2) 10/01/21 21:41 Calcium 8.0 mg/dL (8.5-10.3) L 10/08/21 05:25 Magnesium 1.7 mg/dL (1.7-2.8) 10/01/21 18:35 Total Bilirubin 2.5 mg/dL (0.2-1.0) H 10/01/21 18:35 AST 30 IU/L (10-42) 10/01/21 18:35 ALT < 10 IU/L (10-60) L 10/01/21 18:35 Alkaline Phosphatase 128 IU/L (42-121) H 10/01/21 18:35 Lactate Dehydrogenase 118 IU/L (91-225) 10/01/21 18:35 Troponin I High Sens 12.6 ng/L (2.3-19.7) 10/01/21 18:35 C-Reactive Protein 3.4 mg/dL (0-1.0) H 10/06/21 05:24 Total Protein 7.6 g/dL (6.7-8.2) 10/01/21 18:35 Albumin 2.3 g/dL (3.2-5.5) L 10/01/21 18:35 Globulin 5.3 g/dL (2.1-4.2) H 10/01/21 18:35 Albumin/Globulin Ratio 0.4 (1.0-2.2) L 10/01/21 18:35 Lipase 16 U/L (22-51) L 10/01/21 18:35 Prostate Specific Ag < 0.008 ng/mL (0.000-2.000) 10/01/21 18:35 Free PSA 0.010 ng/mL (0.16-2.81) L 10/01/21 18:35 % Free PSA Calc TNP 10/01/21 18:35 Vitamin B12 645 pg/mL (180-914) 10/02/21 04:45 Folate 5.61 ng/mL (5.90 - >24.8) L 10/02/21 04:45 Urine Color DARK YELLOW 10/02/21 13:00 Urine Clarity CLEAR (CLEAR) 10/02/21 13:00 Urine pH 6.5 PH (5.0-7.5) 10/02/21 13:00 Ur Specific [place] 1.020 (1.002-1.030) 10/02/21 13:00 Urine Protein TRACE mg/dL (NEGATIVE) 10/02/21 13:00 Urine Glucose (UA) NEGATIVE mg/dL (NEGATIVE) 10/02/21 13:00 Urine Ketones NEGATIVE mg/dL (NEGATIVE) 10/02/21 13:00 Urine Occult Blood SMALL (NEGATIVE) H 10/02/21 13:00 Urine Nitrite POSITIVE (NEGATIVE) H 10/02/21 13:00 Urine Bilirubin NEGATIVE (NEGATIVE) 10/02/21 13:00 Urine Urobilinogen 2 E.U./dL (NORMAL) H 10/02/21 13:00 Ur Leukocyte Esterase NEGATIVE (NEGATIVE) 10/02/21 13:00 Urine RBC 0-5 /HPF (0-5) 10/02/21 13:00 Urine WBC 0-3 /HPF (0-3) 10/02/21 13:00 Urine WBC Clumps NONE SEEN 10/02/21 13:00 Ur Epithelial Cells None Seen /HPF (<= Few) 10/02/21 13:00 Ur Squamous Epith Cells RARE Squamous (<= Few) 10/02/21 13:00 Urine Bacteria None Seen /HPF (None Seen) 10/02/21 13:00 Ur Microscopic Review INDICATED 10/02/21 13:00 Urine Culture Comments INDICATED 10/02/21 13:00 Fluid Source PLEURAL 10/01/21 21:20 Fluid Color YELLOW 10/01/21 21:20 Fluid Clarity HAZY 10/01/21 21:20 Fluid WBC 282 /mm^3 10/01/21 21:20 Fluid RBC 2000 /mm^3 10/01/21 21:20 Fluid Neutrophils % Not Reportable 10/01/21 21:20 Fluid Lymphocytes % 20 % 10/01/21 21:20 Fluid Monocytes % 35 % 10/01/21 21:20 Fluid Macrophages % 38 % 10/01/21 21:20 Fld Mesothelial Cell % 7 % 10/01/21 21:20 Nasal Adenovirus (PCR) NOT DETECTED 10/01/21 20:18 Nasal B. parapertussis DNA (PCR) NOT DETECTED 10/01/21 20:18 Nasal Coronavir 229E PCR NOT DETECTED 10/01/21 20:18 Nasal Coronavir HKU1 PCR NOT DETECTED 10/01/21 20:18 Nasal Coronavir NL63 PCR NOT DETECTED 10/01/21 20:18 Nasal Coronavir OC43 PCR NOT DETECTED 10/01/21 20:18 Nasal Enterovir/Rhinovir PCR NOT DETECTED 10/01/21 20:18 Nasal Influenza B PCR NOT DETECTED 10/01/21 20:18 Nasal Influenza A PCR NOT DETECTED 10/01/21 20:18 Nasal Parainfluen 1 PCR NOT DETECTED 10/01/21 20:18 Nasal Parainfluen 2 PCR NOT DETECTED 10/01/21 20:18 Nasal Parainfluen 3 PCR NOT DETECTED 10/01/21 20:18 Nasal Parainfluen 4 PCR NOT DETECTED 10/01/21 20:18 Nasal RSV (PCR) NOT DETECTED 10/01/21 20:18 Nasal B.pertussis DNA PCR NOT DETECTED 10/01/21 20:18 Nasal C.pneumoniae (PCR) NOT DETECTED 10/01/21 20:18 Caesar Human Metapneumo PCR NOT DETECTED 10/01/21 20:18 Nasal M.pneumoniae (PCR) NOT DETECTED 10/01/21 20:18 Nasal SARS-CoV-2 (PCR) NOT DETECTED 10/01/21 20:18 Ethyl Alcohol < 5.0 mg/dL 10/01/21 18:35 Ref Lab Test Result REPORT 10/01/21 21:20 Ref Lab Test Result REPORT 10/01/21 21:20 Ref Lab Test Result REPORT 10/01/21 21:20 - Procedures Procedures: Procedures ENDO RECTUM POLYPECTOMY (02/23/14) ABX Reporting Has patient been on IV antibiotics over the past 48 hours?: Yes
[2021-10-09] MEDS: allopurinoL 100 MG TABLET PO SCH ×3 (01:18→20:25)
[2021-10-09 04:57] LABS: BASOPHILS % (AUTO) 0.5 %; EOSINOPHILS # (AUTO) 0.6 10^3/uL (0.0-0.7); HCT - HEMATOCRIT 32.5 % (42.0-52.0); HGB - HEMOGLOBIN 10.8 g/dL (14.0-18.0); LYMPHOCYTES # (AUTO) 1.8 10^3/uL (1.5-3.5); MEAN CORPUSCULAR HEMOGLOBIN 37.1 pg (27.0-31.0); MEAN CORPUSCULAR HGB CONC 33.2 g/dL (32.0-36.0); MEAN CORPUSCULAR VOLUME 111.7 fL (80.0-94.0); MEAN PLATELET VOLUME 9.7 fL (7.4-11.4); MONOCYTES % (AUTO) 11.8 %; NEUTROPHILS # (AUTO) 5.1 10^3/uL (1.5-6.6); NEUTROPHILS % (AUTO) 59.2 %; PLT - PLATELET COUNT 379 10^3/uL (130-450); RED BLOOD COUNT 2.91 10^6/uL (4.70-6.10); RED CELL DISTRIBUTION WIDTH 14.6 % (12.0-15.0); WHITE BLOOD COUNT 8.7 x10^3/uL (4.8-10.8)
[2021-10-09 04:58] LABS: SLIDE REVIEW? Indicated
[2021-10-09 05:05] LABS: CALCIUM 8.2 mg/dL (8.5-10.3); CREATININE 0.6 mg/dL (0.6-1.2); POTASSIUM 4.4 mmol/L (3.5-5.0)
[2021-10-09 05:27] LABS: PLATELET ESTIMATE, MANUAL NORMAL (130-450,000) (NORMAL); PLATELET MORPHOLOGY NORMAL APPEARANCE (NORMAL); RBC MORPHOLOGY (MULTIPLE) 1+ MACROCYTOSIS (NORMAL); WBC MORPHOLOGY (MULTIPLE) NORMAL APPEARANCE (NORMAL)
[2021-10-09] MEDS: metroNIDAZOLE 500 MG/100 ML 500 MG/100 ML BAG IV SCH ×3 (06:01→21:34)
[2021-10-09] MEDS: SODIUM CHLORIDE FLUSH 0.9% 10 ML SYRINGE IVP SCH ×2 (06:03→20:26)
[2021-10-09] MEDS: oxyCODONE 5 MG TABLET PO PRN ×3 (06:14→20:25)
[2021-10-09] MEDS: ACETAMINOPHEN 325 MG TABLET PO PRN (06:14)
[2021-10-09] MEDS: PRENATAL VITAMIN TABLET PO SCH (08:35)
[2021-10-09] MEDS: cefTRIAXone 2 GM in SODIUM CHLORIDE 0.9% MINIBAG 100 ML IV SCH (08:35)
--- NOTE | 2021-10-09 08:38 | PROVIDER PROGRESS NOTE ---
Assessment/Plan - Problem List (1) Parapneumonic effusion Assessment/Plan: Etiology undetermined. Suspect infection vs malnutrition. Patient had a chest tube placed in the ED. General surgery managing chest tube. Patient continues to have high volume (approx 800ml/shift) output from the chest tube. Per Dr Bhatt, patient will likely need to undergo pleurodesis due to continuous significant fluid drainage from chest tube Working on transfering patient for possible procedure in the following days. Analysis of fluid indicates a transudative fluid collection. Pathology report on fluid was negative for any malignant cells. On Rocephin empirically. Flagyl resumed 10/06/21. Will continue. Blood cultures are no growth to date x5 days. White blood count continues to improve steadily. White blood cell count was 8.7 today. (2) Protein-calorie malnutrition, severe Assessment/Plan: Patient has significant muscle wasting, loss of subcutaneous fat. Nutrition intake is less than 50% of recommended intake for greater than 2 weeks. He has experienced a greater than 11% weight loss in 6 month This is likely related to patient's prostate cancer and treatment for prostate cancer. Nutrition following. Will continue to encourage increased oral intake. (3) Prostate cancer Assessment/Plan: This is in remission per the patient. He was treated with radiation therapy. His oncologist is at [facility]. PSA was not detectable. (4) Knee pain, right anterior Assessment/Plan: Imaging was unremarkable. His physical exam does reveal tenderness over the medial and lateral aspects but no obvious erythema or bruising. Todadol IV prn added to medications Allopurinol 100mg p.o daily resumed. - Current Meds Current Meds: Current Medications Generic Name Dose Route Start Last Admin Trade Name Ruizq PRN Reason Stop Dose Admin Acetaminophen 650 mg 10/01/21 21:34 10/09/21 06:14 Acetaminophen 325 Mg Tablet PO 650 mg Q4HR PRN Administration Pain 1 to 4 Allopurinol 100 mg 10/09/21 01:00 10/09/21 01:18 Allopurinol 100 Mg Tablet PO 100 mg BID BRENDA Administration Diphenhydramine HCl 25 mg 10/02/21 22:49 10/05/21 23:01 Diphenhydramine 25 Mg Capsule PO 25 mg QPM PRN Administration Insomnia Ceftriaxone Sodium 2 gm/ 100 mls @ 200 mls/hr 10/02/21 09:00 10/08/21 09:30 Sodium Chloride IV Infused DAILY BRENDA Infusion Metronidazole 500 mg in 100 mls @ 100 mls/hr 10/06/21 08:00 10/09/21 07:01 Flagyl 500 Mg/100 Ml IV Infused Q8HR BRENDA Infusion Ondansetron HCl 4 mg 10/01/21 21:34 10/02/21 11:44 Ondansetron 4 Mg/2 Ml Vial IVP 4 mg Q6HR PRN Administration Nausea / Vomiting Oxycodone HCl 5 mg 10/01/21 21:34 10/09/21 06:14 Oxycodone 5 Mg Tablet PO 5 mg Q4HR PRN Administration Pain 5 to 7 Multivit/Folic Acid/Iron 1 tab 10/04/21 08:00 10/08/21 08:57 Vitamin Tablet PO 1 tab DAILYWM BRENDA Administration Sodium Chloride 10 ml 10/01/21 21:34 10/07/21 05:20 Sodium Chloride Flush 0.9% 10 Ml Syringe IVP 10 ml PRN PRN Administration NEEDED PER PROVIDER ORDERS Sodium Chloride 10 ml 10/02/21 01:00 10/09/21 06:03 Sodium Chloride Flush 0.9% 10 Ml Syringe IVP 10 ml 0100,0900,1700 BRENDA Administration - Lab Result Fish Bone Diagrams: 10/09/21 04:37 10/09/21 04:37 - Additional Planning My Orders: My Active Orders 10/10/21 05:00 BMP - BASIC METABOLIC PANEL [CHEM] DAILYLAB CBC - COMP BLD CT W/AUTO DIFF [HEME] DAILYLAB 10/11/21 05:00 BMP - BASIC METABOLIC PANEL [CHEM] DAILYLAB CBC - COMP BLD CT W/AUTO DIFF [HEME] DAILYLAB 10/12/21 05:00 BMP - BASIC METABOLIC PANEL [CHEM] DAILYLAB CBC - COMP BLD CT W/AUTO DIFF [HEME] DAILYLAB 10/13/21 05:00 BMP - BASIC METABOLIC PANEL [CHEM] DAILYLAB CBC - COMP BLD CT W/AUTO DIFF [HEME] DAILYLAB 10/14/21 05:00 BMP - BASIC METABOLIC PANEL [CHEM] DAILYLAB CBC - COMP BLD CT W/AUTO DIFF [HEME] DAILYLAB Subjective - Subjective Patient Reports: Other (Resting comfortably in the bedside chair at time of visit. Denied any significant complaints.) Objective Vital Signs: Vital Signs - 24 hr 10/08/21 10/08/21 10/08/21 08:48 13:30 15:55 Temperature 36.6 C 36.6 C 36.6 C Heart Rate [ 105 H 121 H 102 H Brachial] Respiratory 16 18 18 Rate Blood Pressure 107/57 L 123/69 104/66 [Right Brachial artery] O2 Saturation 96 93 96 10/08/21 10/09/21 10/09/21 19:51 00:10 05:00 Temperature 36.4 C L 36.7 C 36.8 C Heart Rate [ 111 H 101 H 106 H Brachial] Respiratory 18 18 18 Rate Blood Pressure 123/78 98/54 L 104/69 [Right Brachial artery] O2 Saturation 96 97 95 10/09/21 08:13 Temperature 36.5 C Heart Rate [ 103 H Brachial] Respiratory 18 Rate Blood Pressure 113/64 [Right Brachial artery] O2 Saturation 98 Oxygen O2 Source Room air I&O (Last 24 Hrs): Intake and Output Totals x24h 10/07/21 10/08/21 10/09/21 23:59 23:59 23:59 Intake Total 1400 1800 100 Output Total 2240 2075 1050 Balance -981 -394 -003 Comments/Notes: General: Alert, Oriented x3, Other (Frail/Cachexic) HEENT: PERRLA, EOMI Neck: Supple, No JVD Neuro: Alert, Non Focal, Oriented Times 3 Cardiovascular: Regular rate, No murmurs Respiratory: No respiratory distress, Other (chest tube in place) Abdomen: Normal bowel sounds, Soft, No tenderness Extremities: No cyanosis, Other (Tenderness and swelling in knee joints bilaterally) Skin: No rashes, No breakdown - Results Results: Laboratory Results WBC 8.7 x10^3/uL (4.8-10.8) 10/09/21 04:37 RBC 2.91 10^6/uL (4.70-6.10) L 10/09/21 04:37 Hgb 10.8 g/dL (14.0-18.0) L 10/09/21 04:37 Hct 32.5 % (42.0-52.0) L 10/09/21 04:37 MCV 111.7 fL (80.0-94.0) H 10/09/21 04:37 MCH 37.1 pg (27.0-31.0) H 10/09/21 04:37 MCHC 33.2 g/dL (32.0-36.0) 10/09/21 04:37 RDW 14.6 % (12.0-15.0) 10/09/21 04:37 Plt Count 379 10^3/uL (130-450) 10/09/21 04:37 MPV 9.7 fL (7.4-11.4) 10/09/21 04:37 Neut # (Auto) 5.1 10^3/uL (1.5-6.6) 10/09/21 04:37 Lymph # (Auto) 1.8 10^3/uL (1.5-3.5) 10/09/21 04:37 [place] # (Auto) 1.0 10^3/uL (0.0-1.0) 10/09/21 04:37 Eos # (Auto) 0.6 10^3/uL (0.0-0.7) 10/09/21 04:37 Baso # (Auto) 0.0 10^3/uL (0.0-0.1) 10/09/21 04:37 Absolute Nucleated RBC 0.00 x10^3/uL 10/09/21 04:37 Total Counted 100 10/02/21 04:45 Band Neuts % (Manual) 0 % (0-10) 10/02/21 04:45 Abnorm Lymph % (Manual) 0 % 10/02/21 04:45 Nucleated RBC % 0.0 /100WBC 10/09/21 04:37 Neutrophils # (Manual) 15.6 10^3/uL (1.5-6.6) H 10/02/21 04:45 Lymphocytes # (Manual) 1.1 10^3/uL (1.5-3.5) L 10/02/21 04:45 Monocytes # (Manual) 1.1 10^3/uL (0.0-1.0) H 10/02/21 04:45 Eosinophils # (Manual) 0.2 10^3/uL (0-0.7) 10/02/21 04:45 Basophils # (Manual) 0.0 10^3/uL (0-0.1) 10/02/21 04:45 Differential Comment MANUAL DIFFERENTIAL 10/02/21 04:45 Manual Slide Review Indicated 10/09/21 04:37 WBC Morphology NORMAL APPEARANCE (NORMAL) 10/09/21 04:37 Platelet Estimate NORMAL (130-450,000) (NORMAL) 10/09/21 04:37 Platelet Morphology NORMAL APPEARANCE (NORMAL) 10/09/21 04:37 RBC Morph Micro Appear 1+ MACROCYTOSIS (NORMAL) 10/09/21 04:37 ESR 59 mm/Hr (0-20) H 10/01/21 18:35 PT 16.3 secs (9.9-12.6) H 10/01/21 20:43 INR 1.5 (0.8-1.2) H 10/01/21 20:43 Sodium 132 mmol/L (135-145) L 10/09/21 04:37 Potassium 4.4 mmol/L (3.5-5.0) 10/09/21 04:37 Chloride 97 mmol/L (101-111) L 10/09/21 04:37 Carbon Dioxide 26 mmol/L (21-32) 10/09/21 04:37 Anion Gap 9.0 (6-13) 10/09/21 04:37 BUN 15 mg/dL (6-20) 10/09/21 04:37 Creatinine 0.6 mg/dL (0.6-1.2) 10/09/21 04:37 Estimated GFR (MDRD) 136 (>89) 10/09/21 04:37 Glucose 105 mg/dL (70-100) H 10/09/21 04:37 Lactic Acid 0.8 mmol/L (0.5-2.2) 10/01/21 21:41 Calcium 8.2 mg/dL (8.5-10.3) L 10/09/21 04:37 Magnesium 1.7 mg/dL (1.7-2.8) 10/01/21 18:35 Total Bilirubin 2.5 mg/dL (0.2-1.0) H 10/01/21 18:35 AST 30 IU/L (10-42) 10/01/21 18:35 ALT < 10 IU/L (10-60) L 10/01/21 18:35 Alkaline Phosphatase 128 IU/L (42-121) H 10/01/21 18:35 Lactate Dehydrogenase 118 IU/L (91-225) 10/01/21 18:35 Troponin I High Sens 12.6 ng/L (2.3-19.7) 10/01/21 18:35 C-Reactive Protein 3.4 mg/dL (0-1.0) H 10/06/21 05:24 Total Protein 7.6 g/dL (6.7-8.2) 10/01/21 18:35 Albumin 2.3 g/dL (3.2-5.5) L 10/01/21 18:35 Globulin 5.3 g/dL (2.1-4.2) H 10/01/21 18:35 Albumin/Globulin Ratio 0.4 (1.0-2.2) L 10/01/21 18:35 Lipase 16 U/L (22-51) L 10/01/21 18:35 Prostate Specific Ag < 0.008 ng/mL (0.000-2.000) 10/01/21 18:35 Free PSA 0.010 ng/mL (0.16-2.81) L 10/01/21 18:35 % Free PSA Calc TNP 10/01/21 18:35 Vitamin B12 645 pg/mL (180-914) 10/02/21 04:45 Folate 5.61 ng/mL (5.90 - >24.8) L 10/02/21 04:45 Urine Color DARK YELLOW 10/02/21 13:00 Urine Clarity CLEAR (CLEAR) 10/02/21 13:00 Urine pH 6.5 PH (5.0-7.5) 10/02/21 13:00 Ur Specific [place] 1.020 (1.002-1.030) 10/02/21 13:00 Urine Protein TRACE mg/dL (NEGATIVE) 10/02/21 13:00 Urine Glucose (UA) NEGATIVE mg/dL (NEGATIVE) 10/02/21 13:00 Urine Ketones NEGATIVE mg/dL (NEGATIVE) 10/02/21 13:00 Urine Occult Blood SMALL (NEGATIVE) H 10/02/21 13:00 Urine Nitrite POSITIVE (NEGATIVE) H 10/02/21 13:00 Urine Bilirubin NEGATIVE (NEGATIVE) 10/02/21 13:00 Urine Urobilinogen 2 E.U./dL (NORMAL) H 10/02/21 13:00 Ur Leukocyte Esterase NEGATIVE (NEGATIVE) 10/02/21 13:00 Urine RBC 0-5 /HPF (0-5) 10/02/21 13:00 Urine WBC 0-3 /HPF (0-3) 10/02/21 13:00 Urine WBC Clumps NONE SEEN 10/02/21 13:00 Ur Epithelial Cells None Seen /HPF (<= Few) 10/02/21 13:00 Ur Squamous Epith Cells RARE Squamous (<= Few) 10/02/21 13:00 Urine Bacteria None Seen /HPF (None Seen) 10/02/21 13:00 Ur Microscopic Review INDICATED 10/02/21 13:00 Urine Culture Comments INDICATED 10/02/21 13:00 Fluid Source PLEURAL 10/01/21 21:20 Fluid Color YELLOW 10/01/21 21:20 Fluid Clarity HAZY 10/01/21 21:20 Fluid WBC 282 /mm^3 10/01/21 21:20 Fluid RBC 2000 /mm^3 10/01/21 21:20 Fluid Neutrophils % Not Reportable 10/01/21 21:20 Fluid Lymphocytes % 20 % 10/01/21 21:20 Fluid Monocytes % 35 % 10/01/21 21:20 Fluid Macrophages % 38 % 10/01/21 21:20 Fld Mesothelial Cell % 7 % 10/01/21 21:20 Nasal Adenovirus (PCR) NOT DETECTED 10/01/21 20:18 Nasal B. parapertussis DNA (PCR) NOT DETECTED 10/01/21 20:18 Nasal Coronavir 229E PCR NOT DETECTED 10/01/21 20:18 Nasal Coronavir HKU1 PCR NOT DETECTED 10/01/21 20:18 Nasal Coronavir NL63 PCR NOT DETECTED 10/01/21 20:18 Nasal Coronavir OC43 PCR NOT DETECTED 10/01/21 20:18 Nasal Enterovir/Rhinovir PCR NOT DETECTED 10/01/21 20:18 Nasal Influenza B PCR NOT DETECTED 10/01/21 20:18 Nasal Influenza A PCR NOT DETECTED 10/01/21 20:18 Nasal Parainfluen 1 PCR NOT DETECTED 10/01/21 20:18 Nasal Parainfluen 2 PCR NOT DETECTED 10/01/21 20:18 Nasal Parainfluen 3 PCR NOT DETECTED 10/01/21 20:18 Nasal Parainfluen 4 PCR NOT DETECTED 10/01/21 20:18 Nasal RSV (PCR) NOT DETECTED 10/01/21 20:18 Nasal B.pertussis DNA PCR NOT DETECTED 10/01/21 20:18 Nasal C.pneumoniae (PCR) NOT DETECTED 10/01/21 20:18 Caesar Human Metapneumo PCR NOT DETECTED 10/01/21 20:18 Nasal M.pneumoniae (PCR) NOT DETECTED 10/01/21 20:18 Nasal SARS-CoV-2 (PCR) NOT DETECTED 10/01/21 20:18 Ethyl Alcohol < 5.0 mg/dL 10/01/21 18:35 Ref Lab Test Result REPORT 10/01/21 21:20 Ref Lab Test Result REPORT 10/01/21 21:20 Ref Lab Test Result REPORT 10/01/21 21:20 Ref Lab Test Result REPORT 10/01/21 21:20 - Procedures Procedures: Procedures ENDO RECTUM POLYPECTOMY (02/23/14)
[2021-10-09] MEDS: KETOROLAC 15 MG/ML VIAL IVP PRN ×2 (08:47→15:07)
--- NOTE | 2021-10-09 17:16 | PROVIDER PROGRESS NOTE ---
Subjective - General Admit Date: 10/01/21 Procedure Date: 10/01/21 Post Op Days: 8 Procedure Performed: Right thoracostomy tube placement - Review of Systems Wound/Incisions: positive: Healing well Drain Type: Thoracostomy tube General: positive: No symptoms Pulmonary: negative: Shortness of breath Cardiovascular: negative: Chest pain Gastrointestinal: positive: No symptoms All Other Systems: positive: Other - Other Other Information/Narrative: Denies pain currently but just received meds. Chest tube continues to produce copious fluid. May be on track for slightly lower volume today Objective - Patient Data Vital Signs: Vital Signs x48h Temp Pulse Resp BP Pulse Ox 10/09/21 15:47 36.6 C 97 20 106/55 L 97 10/09/21 11:48 36.4 C L 61 22 95/54 L 96 Intake & Output: Intake and Output Totals x24h 10/07/21 10/08/21 10/09/21 23:59 23:59 23:59 Intake Total 1400 1800 640 Output Total 2240 2075 1170 Balance -840 -275 -530 - Lab Results Lab Results: 10/09/21 04:37 10/09/21 04:37 Other Lab Results: Lab Results x24hrs 10/09/21 10/09/21 10/01/21 Range/Units 04:37 04:37 21:20 WBC 8.7 (4.8-10.8) x10^3/uL RBC 2.91 L (4.70-6.10) 10^6/uL Hgb 10.8 L (14.0-18.0) g/dL Hct 32.5 L (42.0-52.0) % MCV 111.7 H (80.0-94.0) fL MCH 37.1 H (27.0-31.0) pg MCHC 33.2 (32.0-36.0) g/dL RDW 14.6 (12.0-15.0) % Plt Count 379 (130-450) 10^3/uL MPV 9.7 (7.4-11.4) fL Neut # (Auto) 5.1 (1.5-6.6) 10^3/uL Lymph # (Auto) 1.8 (1.5-3.5) 10^3/uL [place] # (Auto) 1.0 (0.0-1.0) 10^3/uL Eos # (Auto) 0.6 (0.0-0.7) 10^3/uL Baso # (Auto) 0.0 (0.0-0.1) 10^3/uL Absolute Nucleated RBC 0.00 x10^3/uL Nucleated RBC % 0.0 /100WBC Manual Slide Review Indicated WBC Morphology NORMAL APPEARANCE (NORMAL) Platelet Estimate NORMAL (130-450,000) (NORMAL) Platelet Morphology NORMAL APPEARANCE (NORMAL) RBC Morph Micro Appear 1+ MACROCYTOSIS (NORMAL) Sodium 132 L (135-145) mmol/L Potassium 4.4 (3.5-5.0) mmol/L Chloride 97 L (101-111) mmol/L Carbon Dioxide 26 (21-32) mmol/L Anion Gap 9.0 (6-13) BUN 15 (6-20) mg/dL Creatinine 0.6 (0.6-1.2) mg/dL Estimated GFR (MDRD) 136 (>89) Glucose 105 H (70-100) mg/dL Calcium 8.2 L (8.5-10.3) mg/dL Ref Lab Test Result REPORT - Current Medications Current Medications: Current Medications Generic Name Dose Route Start Last Admin Trade Name Freq PRN Reason Stop Dose Admin Acetaminophen 650 mg 10/01/21 21:34 10/09/21 06:14 Acetaminophen 325 Mg Tablet PO 650 mg Q4HR PRN Administration Pain 1 to 4 Allopurinol 100 mg 10/09/21 01:00 10/09/21 08:35 Allopurinol 100 Mg Tablet PO 100 mg BID BRENDA Administration Diphenhydramine HCl 25 mg 10/02/21 22:49 10/05/21 23:01 Diphenhydramine 25 Mg Capsule PO 25 mg QPM PRN Administration Insomnia Ceftriaxone Sodium 2 gm/ 100 mls @ 200 mls/hr 10/02/21 09:00 10/09/21 09:05 Sodium Chloride IV Infused DAILY BRENDA Infusion Metronidazole 500 mg in 100 mls @ 100 mls/hr 10/06/21 08:00 10/09/21 14:56 Flagyl 500 Mg/100 Ml IV Infused Q8HR BRENDA Infusion Ketorolac Tromethamine 15 mg 10/06/21 10:56 10/09/21 15:07 Ketorolac 15 Mg/Ml Vial IVP 15 mg Q6HR PRN Administration PAIN Ondansetron HCl 4 mg 10/01/21 21:34 10/02/21 11:44 Ondansetron 4 Mg/2 Ml Vial IVP 4 mg Q6HR PRN Administration Nausea / Vomiting Oxycodone HCl 5 mg 10/01/21 21:34 10/09/21 16:26 Oxycodone 5 Mg Tablet PO 5 mg Q4HR PRN Administration Pain 5 to 7 Multivit/Folic Acid/Iron 1 tab 10/04/21 08:00 10/09/21 08:35 Vitamin Tablet PO 1 tab DAILYWM BRENDA Administration Sodium Chloride 10 ml 10/01/21 21:34 10/07/21 05:20 Sodium Chloride Flush 0.9% 10 Ml Syringe IVP 10 ml PRN PRN Administration NEEDED PER PROVIDER ORDERS Sodium Chloride 10 ml 10/02/21 01:00 10/09/21 06:03 Sodium Chloride Flush 0.9% 10 Ml Syringe IVP 10 ml 0100,0900,1700 BRENDA Administration - Physical Exam Wound/Incisions: positive: Other (CT site is clean and dressing. No evidence of leaking) Respiratory: positive: No respiratory distress ABX Reporting Has patient been on IV antibiotics over the past 48 hours?: Yes Impression/Plan - Problem List Problem List: Parapneumonic effusion most consistent with transudate with respect to lab studies. The hospitalist service is diligently searching for bed in an institution with thoracic surgery services. Continue supportive care and drainage for now.
[2021-10-10] MEDS: oxyCODONE 5 MG TABLET PO PRN ×4 (00:37→21:59)
[2021-10-10] MEDS: ACETAMINOPHEN 325 MG TABLET PO PRN ×2 (00:37→04:39)
[2021-10-10] MEDS: SODIUM CHLORIDE FLUSH 0.9% 10 ML SYRINGE IVP SCH ×3 (00:45→16:05)
[2021-10-10] MEDS: metroNIDAZOLE 500 MG/100 ML 500 MG/100 ML BAG IV SCH ×3 (05:37→21:59)
[2021-10-10 06:12] LABS: BASOPHILS # (AUTO) 0.1 10^3/uL (0.0-0.1); BASOPHILS % (AUTO) 0.5 %; EOSINOPHILS # (AUTO) 0.9 10^3/uL (0.0-0.7); EOSINOPHILS % (AUTO) 8.6 %; HCT - HEMATOCRIT 33.1 % (42.0-52.0); LYMPHOCYTES # (AUTO) 2.1 10^3/uL (1.5-3.5); LYMPHOCYTES % (AUTO) 20.5 %; MEAN CORPUSCULAR HEMOGLOBIN 36.9 pg (27.0-31.0); MEAN CORPUSCULAR HGB CONC 33.2 g/dL (32.0-36.0); MEAN CORPUSCULAR VOLUME 111.1 fL (80.0-94.0); MEAN PLATELET VOLUME 10.1 fL (7.4-11.4); MONOCYTES # (AUTO) 1.2 10^3/uL (0.0-1.0); MONOCYTES % (AUTO) 11.7 %; NEUTROPHILS # (AUTO) 5.8 10^3/uL (1.5-6.6); NEUTROPHILS % (AUTO) 58.2 %; PLT - PLATELET COUNT 407 10^3/uL (130-450); RED BLOOD COUNT 2.98 10^6/uL (4.70-6.10); RED CELL DISTRIBUTION WIDTH 14.6 % (12.0-15.0)
[2021-10-10 06:16] LABS: SLIDE REVIEW? Indicated
[2021-10-10 06:20] LABS: CALCIUM 8.2 mg/dL (8.5-10.3); CREATININE 0.9 mg/dL (0.6-1.2); POTASSIUM 4.1 mmol/L (3.5-5.0)
[2021-10-10 06:27] LABS: PLATELET ESTIMATE, MANUAL NORMAL (130-450,000) (NORMAL); PLATELET MORPHOLOGY NORMAL APPEARANCE (NORMAL); RBC MORPHOLOGY (MULTIPLE) 1+ MACROCYTOSIS (NORMAL); WBC MORPHOLOGY (MULTIPLE) NORMAL APPEARANCE (NORMAL)
[2021-10-10] MEDS: cefTRIAXone 2 GM in SODIUM CHLORIDE 0.9% MINIBAG 100 ML IV SCH (08:58)
[2021-10-10] MEDS: PRENATAL VITAMIN TABLET PO SCH (08:58)
[2021-10-10] MEDS: allopurinoL 100 MG TABLET PO SCH (08:58)
--- NOTE | 2021-10-10 09:34 | XRAY Report ---
PROCEDURE: Chest 1 View X-Ray INDICATIONS: Follow up chest tube. Effusion. TECHNIQUE: One view of the chest was acquired. COMPARISON: 10/03/2021 FINDINGS: Surgical changes and devices: Stable right-sided chest tube. Bone anchors right humeral head.. Lungs and pleura: Trace right pneumothorax. Interval clearance of right medial lower lung opacity. Th e left lung is clear. No pleural effusions. Mediastinum: Mediastinal contours appear normal. Heart size is normal. Bones and chest wall: No suspicious bony lesions. Overlying soft tissues appear unremarkable. IMPRESSION: 1. Interval clearance of right lower lobe pneumonia. 2. Stable right-sided chest tube with trace right pneumothorax, minimally changed since previous. Reviewed by: Ashlyn Wallace MD on 10/10/2021 9:32 AM PST Approved by: Ashlyn Wallace MD on 10/10/2021 9:32 AM PST Station ID: [id number]
--- NOTE | 2021-10-10 10:20 | PROVIDER PROGRESS NOTE ---
Subjective - General Admit Date: 10/01/21 Procedure Date: 10/01/21 Post Op Days: 9 Procedure Performed: Right thoracostomy tube placement - Review of Systems Wound/Incisions: positive: Other (CT site is clean and dressing. No evidence of leaking) Drain Type: Thoracostomy tube General: positive: No symptoms Pulmonary: negative: Shortness of breath Cardiovascular: negative: Chest pain Gastrointestinal: positive: No symptoms All Other Systems: positive: Other - Other Other Information/Narrative: Mr. Knight is in much better spirits today. He denies any pain. He tells me he is feeling hungry and would like a chicken leg or turkey drumstick. Otherwise there is no change Objective - Patient Data Vital Signs: Vital Signs x48h Temp Pulse Resp BP Pulse Ox 10/10/21 08:46 36.6 C 107 H 16 110/70 98 10/10/21 04:33 36.6 C 97 17 121/63 96 Intake & Output: Intake and Output Totals x24h 10/08/21 10/09/21 10/10/21 23:59 23:59 23:59 Intake Total 1800 980 840 Output Total 2075 2230 770 Balance -275 -1250 70 - Lab Results Lab Results: 10/10/21 05:19 10/10/21 05:19 Other Lab Results: Lab Results x24hrs 10/10/21 10/10/21 Range/Units 05:19 05:19 WBC 10.0 (4.8-10.8) x10^3/uL RBC 2.98 L (4.70-6.10) 10^6/uL Hgb 11.0 L (14.0-18.0) g/dL Hct 33.1 L (42.0-52.0) % MCV 111.1 H (80.0-94.0) fL MCH 36.9 H (27.0-31.0) pg MCHC 33.2 (32.0-36.0) g/dL RDW 14.6 (12.0-15.0) % Plt Count 407 (130-450) 10^3/uL MPV 10.1 (7.4-11.4) fL Neut # (Auto) 5.8 (1.5-6.6) 10^3/uL Lymph # (Auto) 2.1 (1.5-3.5) 10^3/uL [place] # (Auto) 1.2 H (0.0-1.0) 10^3/uL Eos # (Auto) 0.9 H (0.0-0.7) 10^3/uL Baso # (Auto) 0.1 (0.0-0.1) 10^3/uL Absolute Nucleated RBC 0.00 x10^3/uL Nucleated RBC % 0.0 /100WBC Manual Slide Review Indicated WBC Morphology NORMAL APPEARANCE (NORMAL) Platelet Estimate NORMAL (130-450,000) (NORMAL) Platelet Morphology NORMAL APPEARANCE (NORMAL) RBC Morph Micro Appear 1+ MACROCYTOSIS (NORMAL) Sodium 128 L (135-145) mmol/L Potassium 4.1 (3.5-5.0) mmol/L Chloride 93 L (101-111) mmol/L Carbon Dioxide 27 (21-32) mmol/L Anion Gap 8.0 (6-13) BUN 20 (6-20) mg/dL Creatinine 0.9 (0.6-1.2) mg/dL Estimated GFR (MDRD) 85 L (>89) Glucose 114 H (70-100) mg/dL Calcium 8.2 L (8.5-10.3) mg/dL - Current Medications Current Medications: Current Medications Generic Name Dose Route Start Last Admin Trade Name Freq PRN Reason Stop Dose Admin Acetaminophen 650 mg 10/01/21 21:34 10/10/21 04:39 Acetaminophen 325 Mg Tablet PO 650 mg Q4HR PRN Administration Pain 1 to 4 Allopurinol 100 mg 10/10/21 09:00 10/10/21 08:58 Allopurinol 100 Mg Tablet PO 100 mg DAILY BRENDA Administration Diphenhydramine HCl 25 mg 10/02/21 22:49 10/05/21 23:01 Diphenhydramine 25 Mg Capsule PO 25 mg QPM PRN Administration Insomnia Ceftriaxone Sodium 2 gm/ 100 mls @ 200 mls/hr 10/02/21 09:00 10/10/21 08:58 Sodium Chloride IV 200 mls/hr DAILY BRENDA Administration Metronidazole 500 mg in 100 mls @ 100 mls/hr 10/06/21 08:00 10/10/21 07:43 Flagyl 500 Mg/100 Ml IV Infused Q8HR BRENDA Infusion Ketorolac Tromethamine 15 mg 10/06/21 10:56 10/09/21 15:07 Ketorolac 15 Mg/Ml Vial IVP 15 mg Q6HR PRN Administration PAIN Ondansetron HCl 4 mg 10/01/21 21:34 10/02/21 11:44 Ondansetron 4 Mg/2 Ml Vial IVP 4 mg Q6HR PRN Administration Nausea / Vomiting Oxycodone HCl 5 mg 10/01/21 21:34 10/10/21 04:38 Oxycodone 5 Mg Tablet PO 5 mg Q4HR PRN Administration Pain 5 to 7 Multivit/Folic Acid/Iron 1 tab 10/04/21 08:00 10/10/21 08:58 Vitamin Tablet PO 1 tab DAILYWM BRENDA Administration Sodium Chloride 10 ml 10/01/21 21:34 10/07/21 05:20 Sodium Chloride Flush 0.9% 10 Ml Syringe IVP 10 ml PRN PRN Administration NEEDED PER PROVIDER ORDERS Sodium Chloride 10 ml 10/02/21 01:00 10/10/21 08:59 Sodium Chloride Flush 0.9% 10 Ml Syringe IVP 10 ml 0100,0900,1700 BRENDA Administration - Physical Exam Comments/Other: Chest tube site is clean and output remains straw colored. Encouraging trend of slightly decreased output. Will continue to follow.
--- NOTE | 2021-10-10 12:10 | PROVIDER PROGRESS NOTE ---
Subjective - Prog Note Date Prog Note Date: 10/10/21 - Subjective Subjective: He reports feeling fine. Denies shortness of breath. He understands we are looking for a bed for transfer. Current Medications - Current Medications Current Medications: Active Medications Acetaminophen (Acetaminophen 325 Mg Tablet) 650 mg PO Q4HR PRN PRN Reason: Pain 1 to 4 Last Admin: 10/10/21 04:39 Dose: 650 mg Documented by: Allopurinol (Allopurinol 100 Mg Tablet) 100 mg PO DAILY [facility] Last Admin: 10/10/21 08:58 Dose: 100 mg Documented by: Diphenhydramine HCl (Diphenhydramine 25 Mg Capsule) 25 mg PO QPM PRN PRN Reason: Insomnia Last Admin: 10/05/21 23:01 Dose: 25 mg Documented by: Ceftriaxone Sodium 2 gm/ (Sodium Chloride) 100 mls @ 200 mls/hr IV DAILY [facility] Last Infusion: 10/10/21 10:25 Dose: Infused Documented by: Metronidazole (Flagyl 500 Mg/100 Ml) 500 mg in 100 mls @ 100 mls/hr IV Q8HR [facility] Last Admin: 10/10/21 14:11 Dose: 100 mls/hr Documented by: Sodium Chloride (Normal Saline 0.9%) 1,000 mls @ 83.333 mls/hr IV .Q12H [facility] Stop: 10/11/21 02:59 Ketorolac Tromethamine (Ketorolac 15 Mg/Ml Vial) 15 mg IVP Q6HR PRN PRN Reason: PAIN Last Admin: 10/09/21 15:07 Dose: 15 mg Documented by: Ondansetron HCl (Ondansetron Odt 4 Mg Tablet) 4 mg TL Q6HR PRN PRN Reason: Nausea / Vomiting Ondansetron HCl (Ondansetron 4 Mg/2 Ml Vial) 4 mg IVP Q6HR PRN PRN Reason: Nausea / Vomiting Last Admin: 10/02/21 11:44 Dose: 4 mg Documented by: Oxycodone HCl (Oxycodone 5 Mg Tablet) 5 mg PO Q4HR PRN PRN Reason: Pain 5 to 7 Last Admin: 10/10/21 04:38 Dose: 5 mg Documented by: Multivit/Folic Acid/Iron ( Vitamin Tablet) 1 tab PO DAILYWM [facility] Last Admin: 10/10/21 08:58 Dose: 1 tab Documented by: Sodium Chloride (Sodium Chloride Flush 0.9% 10 Ml Syringe) 10 ml IVP PRN PRN PRN Reason: NEEDED PER PROVIDER ORDERS Last Admin: 10/07/21 05:20 Dose: 10 ml Documented by: Sodium Chloride (Sodium Chloride Flush 0.9% 10 Ml Syringe) 10 ml IVP 0100,0900,1700 BRENDA Last Admin: 10/10/21 08:59 Dose: 10 ml Documented by: allopurinoL [Allopurinol] 100 mg PO DAILY PRN 08/30/14 Ibuprofen [Motrin] 800 mg PO DAILY 10/02/21 LORazepam [Ativan] 0.5 mg PO DAILY PRN 10/02/21 Potassium Chloride [Klor-Con M20] 20 meq PO DAILY 10/02/21 Objective - Vital Signs/Intake & Output Reviewed Vital Signs: Yes Vital Signs: Vital Signs x48h Temp Pulse Resp BP Pulse Ox 10/10/21 08:46 36.6 C 107 H 16 110/70 98 10/10/21 04:33 36.6 C 97 17 121/63 96 Intake & Output: Intake & Output 10/07/21 10/08/21 10/09/21 10/10/21 23:59 23:59 23:59 23:59 Intake Total 1400 1800 980 940 Output Total 2240 2075 2230 1500 Balance -840 -275 -1250 -560 - Objective General Appearance: positive: No acute distress, Alert Eyes Bilateral: positive: Normal inspection, Conjunctivae nml ENT: positive: ENT inspection nml Neck: positive: Nml inspection Respiratory: positive: Other (Chest tube in place over right chest wall. Breath sounds diminished in right bases.) Cardiovascular: negative: No murmur, Tachycardia Abdomen: positive: Non-tender, No distention. negative: Tenderness Skin: positive: Warm, Dry Extremities: positive: No pedal edema Neurologic/Psychiatric: negative: Disoriented to person, Disoriented to place - Lab Results Fish Bones: 10/11/21 04:32 10/11/21 04:32 Other Labs: Lab Results x24hrs 10/10/21 10/10/21 Range/Units 05:19 05:19 WBC 10.0 (4.8-10.8) x10^3/uL RBC 2.98 L (4.70-6.10) 10^6/uL Hgb 11.0 L (14.0-18.0) g/dL Hct 33.1 L (42.0-52.0) % MCV 111.1 H (80.0-94.0) fL MCH 36.9 H (27.0-31.0) pg MCHC 33.2 (32.0-36.0) g/dL RDW 14.6 (12.0-15.0) % Plt Count 407 (130-450) 10^3/uL MPV 10.1 (7.4-11.4) fL Neut # (Auto) 5.8 (1.5-6.6) 10^3/uL Lymph # (Auto) 2.1 (1.5-3.5) 10^3/uL [place] # (Auto) 1.2 H (0.0-1.0) 10^3/uL Eos # (Auto) 0.9 H (0.0-0.7) 10^3/uL Baso # (Auto) 0.1 (0.0-0.1) 10^3/uL Absolute Nucleated RBC 0.00 x10^3/uL Nucleated RBC % 0.0 /100WBC Manual Slide Review Indicated WBC Morphology NORMAL APPEARANCE (NORMAL) Platelet Estimate NORMAL (130-450,000) (NORMAL) Platelet Morphology NORMAL APPEARANCE (NORMAL) RBC Morph Micro Appear 1+ MACROCYTOSIS (NORMAL) Sodium 128 L (135-145) mmol/L Potassium 4.1 (3.5-5.0) mmol/L Chloride 93 L (101-111) mmol/L Carbon Dioxide 27 (21-32) mmol/L Anion Gap 8.0 (6-13) BUN 20 (6-20) mg/dL Creatinine 0.9 (0.6-1.2) mg/dL Estimated GFR (MDRD) 85 L (>89) Glucose 114 H (70-100) mg/dL Calcium 8.2 L (8.5-10.3) mg/dL ABX Reporting Has patient been on IV antibiotics over the past 48 hours?: Yes Assessment/Plan - Problem List (1) Parapneumonic effusion Impression: This was suspected to be a parapneumonic effusion given imaging also revealed a consolidation. He has been on ceftriaxone and Flagyl although there have been no culture results and no growth to date. The effusion is transudate of as well. Glucose and pH were not significantly decreased. The creatinine was 1.5 and the ratio was less than 1 so doubt a urinothorax. Cytology was also negative for malignant cells. Unfortunately, he continues to have a large amount of output from the chest tube on a daily basis with nearly up to 800 mL a shift. General surgery is recommending a pleurodesis and we are looking to transfer him to a higher level of care but unfortunate there are no beds available at nearby facilities. We have continue to contact on a daily basis and he is on wait list. In the interim, we will continue IV antibiotics and chest tube management. I have also ordered an echocardiogram to evaluate for heart failure although this is felt to be less likely. (2) Protein-calorie malnutrition, severe Impression: He has protein calorie malnutrition per ASPEN criteria. We have consulted nutrition and we are encouraging his oral intake. (3) Prostate cancer Impression: This is in remission per the patient. He was treated with radiation therapy. His oncologist is at [place]. PSA was not detectable. (4) Knee pain, right anterior Impression: Resolved. Continue home allopurinol.
[2021-10-10] MEDS ORDERED: SODIUM CHLORIDE 0.9% 1,000 ML IV SCH (15:00)
[2021-10-11] MEDS: SODIUM CHLORIDE FLUSH 0.9% 10 ML SYRINGE IVP SCH ×3 (00:39→16:50)
[2021-10-11] MEDS: oxyCODONE 5 MG TABLET PO PRN ×2 (04:57→20:13)
[2021-10-11] MEDS: ACETAMINOPHEN 325 MG TABLET PO PRN (04:58)
[2021-10-11 05:14] LABS: CALCIUM 7.9 mg/dL (8.5-10.3); CREATININE 0.7 mg/dL (0.6-1.2); POTASSIUM 4.5 mmol/L (3.5-5.0)
[2021-10-11 05:16] LABS: BASOPHILS # (AUTO) 0.1 10^3/uL (0.0-0.1); BASOPHILS % (AUTO) 0.6 %; EOSINOPHILS # (AUTO) 0.9 10^3/uL (0.0-0.7); EOSINOPHILS % (AUTO) 8.2 %; HCT - HEMATOCRIT 32.2 % (42.0-52.0); HGB - HEMOGLOBIN 10.9 g/dL (14.0-18.0); LYMPHOCYTES # (AUTO) 1.7 10^3/uL (1.5-3.5); LYMPHOCYTES % (AUTO) 15.6 %; MEAN CORPUSCULAR HEMOGLOBIN 37.1 pg (27.0-31.0); MEAN CORPUSCULAR HGB CONC 33.9 g/dL (32.0-36.0); MEAN CORPUSCULAR VOLUME 109.5 fL (80.0-94.0); MEAN PLATELET VOLUME 9.9 fL (7.4-11.4); MONOCYTES # (AUTO) 1.2 10^3/uL (0.0-1.0); MONOCYTES % (AUTO) 11.6 %; NEUTROPHILS # (AUTO) 6.7 10^3/uL (1.5-6.6); NEUTROPHILS % (AUTO) 63.3 %; PLT - PLATELET COUNT 398 10^3/uL (130-450); RED BLOOD COUNT 2.94 10^6/uL (4.70-6.10); WHITE BLOOD COUNT 10.6 x10^3/uL (4.8-10.8)
[2021-10-11] MEDS: metroNIDAZOLE 500 MG/100 ML 500 MG/100 ML BAG IV SCH ×2 (05:25→14:54)
[2021-10-11] MEDS: PRENATAL VITAMIN TABLET PO SCH (09:15)
[2021-10-11] MEDS: allopurinoL 100 MG TABLET PO SCH (09:15)
[2021-10-11] MEDS: cefTRIAXone 2 GM in SODIUM CHLORIDE 0.9% MINIBAG 100 ML IV SCH (09:15)
--- NOTE | 2021-10-11 11:39 | PROVIDER PROGRESS NOTE ---
Subjective - Prog Note Date Prog Note Date: 10/11/21 - Subjective Subjective: He denies any shortness of breath. He does complain of pain at the site of the chest tube. He wanted an explanation as to why we ordered an echocardiogram. Current Medications - Current Medications Current Medications: Active Medications Acetaminophen (Acetaminophen 325 Mg Tablet) 650 mg PO Q4HR PRN PRN Reason: Pain 1 to 4 Last Admin: 10/11/21 04:58 Dose: 650 mg Documented by: Allopurinol (Allopurinol 100 Mg Tablet) 100 mg PO DAILY [facility] Last Admin: 10/11/21 09:15 Dose: 100 mg Documented by: Diphenhydramine HCl (Diphenhydramine 25 Mg Capsule) 25 mg PO QPM PRN PRN Reason: Insomnia Last Admin: 10/05/21 23:01 Dose: 25 mg Documented by: Ceftriaxone Sodium 2 gm/ (Sodium Chloride) 100 mls @ 200 mls/hr IV DAILY [facility] Last Infusion: 10/11/21 09:49 Dose: Infused Documented by: Metronidazole (Flagyl 500 Mg/100 Ml) 500 mg in 100 mls @ 100 mls/hr IV Q8HR [facility] Last Infusion: 10/11/21 06:30 Dose: Infused Documented by: Ketorolac Tromethamine (Ketorolac 15 Mg/Ml Vial) 15 mg IVP Q6HR PRN PRN Reason: PAIN Last Admin: 10/09/21 15:07 Dose: 15 mg Documented by: Ondansetron HCl (Ondansetron Odt 4 Mg Tablet) 4 mg TL Q6HR PRN PRN Reason: Nausea / Vomiting Ondansetron HCl (Ondansetron 4 Mg/2 Ml Vial) 4 mg IVP Q6HR PRN PRN Reason: Nausea / Vomiting Last Admin: 10/02/21 11:44 Dose: 4 mg Documented by: Oxycodone HCl (Oxycodone 5 Mg Tablet) 5 mg PO Q4HR PRN PRN Reason: Pain 5 to 7 Last Admin: 10/11/21 04:57 Dose: 5 mg Documented by: Multivit/Folic Acid/Iron ( Vitamin Tablet) 1 tab PO DAILYWM [facility] Last Admin: 10/11/21 09:15 Dose: 1 tab Documented by: Sodium Chloride (Sodium Chloride Flush 0.9% 10 Ml Syringe) 10 ml IVP PRN PRN PRN Reason: NEEDED PER PROVIDER ORDERS Last Admin: 10/07/21 05:20 Dose: 10 ml Documented by: Sodium Chloride (Sodium Chloride Flush 0.9% 10 Ml Syringe) 10 ml IVP 0100,0900,1700 BRENDA Last Admin: 10/11/21 09:15 Dose: 10 ml Documented by: allopurinoL [Allopurinol] 100 mg PO DAILY PRN 08/30/14 Ibuprofen [Motrin] 800 mg PO DAILY 10/02/21 LORazepam [Ativan] 0.5 mg PO DAILY PRN 10/02/21 Potassium Chloride [Klor-Con M20] 20 meq PO DAILY 10/02/21 Objective - Vital Signs/Intake & Output Reviewed Vital Signs: Yes Vital Signs: Vital Signs x48h Temp Pulse Resp BP BP Pulse Ox 10/11/21 09:00 36.8 C 107 H 16 107/58 L 96 10/11/21 04:48 36.8 C 112 H 18 93/47 L 95 Intake & Output: Intake & Output 10/08/21 10/09/21 10/10/21 10/11/21 23:59 23:59 23:59 23:59 Intake Total 6975 197 8529.831 1359.169 Output Total 3095 2480 0025 775 Balance -208 -1250 -524.169 584.169 - Objective General Appearance: positive: No acute distress, Alert Eyes Bilateral: positive: Normal inspection, Conjunctivae nml ENT: positive: ENT inspection nml Neck: positive: Thyroid nml Respiratory: positive: No respiratory distress, Other (Diminished in right bases. Chest tube in place over right chest wall.) Cardiovascular: negative: Irregularly irregular, Tachycardia, Systolic murmur Skin: positive: Warm, Dry Extremities: positive: No pedal edema Neurologic/Psychiatric: negative: Disoriented to person, Disoriented to place - Lab Results Fish Bones: 10/11/21 04:32 10/11/21 04:32 Other Labs: Lab Results x24hrs 10/11/21 10/11/21 10/01/21 Range/Units 04:32 04:32 21:20 WBC 10.6 (4.8-10.8) x10^3/uL RBC 2.94 L (4.70-6.10) 10^6/uL Hgb 10.9 L (14.0-18.0) g/dL Hct 32.2 L (42.0-52.0) % MCV 109.5 H (80.0-94.0) fL MCH 37.1 H (27.0-31.0) pg MCHC 33.9 (32.0-36.0) g/dL RDW 15.0 (12.0-15.0) % Plt Count 398 (130-450) 10^3/uL MPV 9.9 (7.4-11.4) fL Neut # (Auto) 6.7 H (1.5-6.6) 10^3/uL Lymph # (Auto) 1.7 (1.5-3.5) 10^3/uL [place] # (Auto) 1.2 H (0.0-1.0) 10^3/uL Eos # (Auto) 0.9 H (0.0-0.7) 10^3/uL Baso # (Auto) 0.1 (0.0-0.1) 10^3/uL Absolute Nucleated RBC 0.00 x10^3/uL Nucleated RBC % 0.0 /100WBC Sodium 128 L (135-145) mmol/L Potassium 4.5 (3.5-5.0) mmol/L Chloride 97 L (101-111) mmol/L Carbon Dioxide 25 (21-32) mmol/L Anion Gap 6.0 (6-13) BUN 19 (6-20) mg/dL Creatinine 0.7 (0.6-1.2) mg/dL Estimated GFR (MDRD) 114 (>89) Glucose 111 H (70-100) mg/dL Calcium 7.9 L (8.5-10.3) mg/dL Ref Lab Test Result ABX Reporting Has patient been on IV antibiotics over the past 48 hours?: Yes Assessment/Plan - Problem List (1) Parapneumonic effusion Impression: This was suspected to be a parapneumonic effusion given CT on admission also revealed a right sided consolidation. He has been treated with ceftriaxone and Flagyl. Cultures have been negative to date. Pleural fluid analysis revealed this is a transudate of effusion. Glucose and pH were both elevated. Creatinine from the pleural fluid was 0.5 and the ratio was less than 1 so we do not suspect urinothorax. Cytology has also been negative for malignant cells. He unfortunately continues to have approximately 2 L of output on a daily basis. General surgery is recommending a transfer to high-level care for thoracic surgery evaluation. Unfortunate is been difficult to obtain a bed at another facility. I did speak with Frank today and he is on the wait list. He is also on the wait list at [place]. [facility] and [facility] felt that we should contact [facility] again given that is where the patient has received care in the past and so I am awaiting a callback from thoracic surgery at [facility]. I also discussed with the patient why we obtained an echocardiogram and the results of this are pending. (2) Protein-calorie malnutrition, severe Impression: He has protein calorie malnutrition per ASPEN criteria. We have consulted nutrition and we are encouraging his oral intake. (3) Prostate cancer Impression: This is in remission per the patient. He was treated with radiation therapy. His oncologist is at [place]. PSA was not detectable. (4) Knee pain, right anterior Impression: He presented with knee pain which is likely related to his gout. This is stable and we are continuing his home allopurinol.
[2021-10-11 13:58] LABS: CHOL/HDL RATIO 4.9 (<5.0); CHOLESTEROL 64 mg/dL; HDL CHOLESTEROL 13 mg/dL; LDL CHOLESTEROL,CALCULATED 37 mg/dL; LDL/HDL RATIO 2.8 (<3.6); TRIGLYCERIDES 72 mg/dL; VLDL CHOLESTEROL 14 mg/dL
[2021-10-11 17:34] LABS: B. PARAPERTUSSIS- RESP PCR PAN NOT DETECTED; B. PERTUSSIS- RESP PCR PANEL NOT DETECTED; C. PNEUMONIAE- RESP PCR PANEL NOT DETECTED; CORONAVIRUS 229E-RESP PCR NOT DETECTED; CORONAVIRUS HKU1-RESP PCR NOT DETECTED; CORONAVIRUS NL63-RESP PCR NOT DETECTED; CORONAVIRUS OC43-RESP PCR NOT DETECTED; HUMAN METAPNEUMOVIRUS NOT DETECTED; INFLUENZA A- RESP PCR PANEL NOT DETECTED; INFLUENZA B - RESP PCR PANEL NOT DETECTED; M. PNEUMONIAE- RESP PCR PANEL NOT DETECTED; PARAINFLUENZA VIRUS 1 NOT DETECTED; PARAINFLUENZA VIRUS 2 NOT DETECTED; PARAINFLUENZA VIRUS 3 NOT DETECTED; PARAINFLUENZA VIRUS 4 NOT DETECTED; RHINOVIRUS/ENTEROVIRUS NOT DETECTED; RSV- RESP PCR PANEL NOT DETECTED; SARS-CoV-2 -RESP PCR PANEL NOT DETECTED
[2021-10-11 23:34] VITALS: BP 124/65
[2021-10-12] MEDS: oxyCODONE 5 MG TABLET PO PRN (00:51)
[2021-10-12] MEDS: ACETAMINOPHEN 325 MG TABLET PO PRN (00:51)
[2021-10-12] MEDS: SODIUM CHLORIDE FLUSH 0.9% 10 ML SYRINGE IVP SCH (00:52)
--- NOTE | 2021-10-12 01:37 | Discharge Plan ---
Discharge Plan Problem Reviewed?: Yes Disposition: 02 Transfer Acute Care Hosp Condition: Serious No Smoking: If you smoke, Please STOP! Call for help.
--- NOTE | 2021-10-12 01:38 | DISCHARGE SUMMARY ---
"Discharge Summary Admit Date: 10/01/21 Discharge Date: 10/12/21 Discharging Provider: Dr Livia Magallanes Primary Care Provider: GENESIS Mcguire Code Status: Attempt Resuscitation Condition at Discharge: Serious Discharge Disposition: 02 Transfer Acute Care Hosp Discharge [facility]: [facility] History of Present Illness: From the admission H&P of Dr. Ervin Hitchcock: This is a 65-year-old male with a past medical history significant for prostate cancer and gout who presents today complaining of weakness and back pain. Most of the history is obtained from the emergency department physician as the patient is quite somnolent upon my evaluation as he received ketamine and Dilaudid for chest tube placement. The patient tells me he came in with left- sided back pain that has been going on for most of his life. When asked as to why he came in today for the back pain, he could not answer. He states he has f elt weak and has had a poor appetite as well as weight loss. He cannot tell me for how long this has been going on for. He denies any fevers, chills, chest pain, dyspnea. He does have a nonproductive cough. Reports no abdominal pain, nausea, vomiting, diarrhea, dysuria, urgency. He states his prostate cancer is in remission and that it was treated with radiation. In the emergency department, he was noted to be tachycardic with a heart rate in the 110s. He was afebrile and normotensive. Imaging revealed a large right- sided pleural effusion and he underwent a CT angiogram of the chest which was suboptimal for pulmonary embolism but did reveal the right-sided pleural effusion with associated consolidation. His labs were significant for white count of 13,000. Chest tube was placed in the emergency department with nearly 4 L of pleural fluid drained. This was sent for pleural fluid studies. Given the concern for parapneumonic effusion, medicine was consulted for admission. - CONSULTS | PROCEDURES Consultations: Dr Kathi Bhatt (Gen Surg) Procedures: Chest tube placement - HOSPITAL COURSE Hospital Course: 1) Parapneumonic effusion This was suspected to be a parapneumonic effusion given that the CT on admission also revealed a right sided consolidation. He was empirically treated with ceftriaxone and Flagyl. Cultures were negative to date. He was seen by General Surgery who placed a chest tube for drainage. Pleural fluid analysis revealed this was a transudative effusion. Glucose and pH were both elevated. Creatinine from the pleural fluid was 0.5 and the ratio was less than 1 so we did not suspect urinothorax. Cytology has also been negative for malignant cells. An Echocardiogram showed normal LVEF. He unfortunately continued to have approximately 2 L of output on a daily basis (about 650 cc/shift) for over a week. General surgery then recommended a transfer to higher-level care for thoracic surgery management such as pleurodesis. It was difficult to obtain a bed at another facility. Eventually, thoracic surgery at [facility] agreed to manage him there and the [facility] accepted him on their se rvice and he was transferred in stable condition buy ambulance. (2) Protein-calorie malnutrition, severe He has protein calorie malnutrition per ASPEN criteria. We consulted Erp Analyst and encouraged oral intake. (3) Prostate cancer This is in remission per the patient. He was treated with radiation therapy. His oncologist is at [place]. PSA was not detectable. (4) Knee pain, right anterior He presented with knee pain which was likely related to his gout. This was stable when we are continued his home Allopurinol. (5) Hyponatremia His serum Na ran 132>> 128. This was likely due to his fluid losses. He was on iv containing NS. - ALLERGIES Allergies/Adverse Reactions: Allergies Allergy/AdvReac Type Severity Reaction Status Date / Time codeine AdvReac Severe Emesis Verified 10/01/21 18:19 - MEDICATIONS Home Medications: Ambulatory Orders Medication Instructions Recorded Confirmed allopurinoL [Allopurinol] 100 mg PO DAILY PRN 08/30/14 10/02/21 Ibuprofen [Motrin] 800 mg PO DAILY 10/02/21 10/02/21 LORazepam [Ativan] 0.5 mg PO DAILY PRN 10/02/21 10/02/21 Potassium Chloride [Klor-Con M20] 20 meq PO DAILY 10/02/21 10/02/21 - PHYSICAL EXAM AT DISCHARGE General Appearance: positive: No acute distress, Alert, Other (Cachectic) Eyes Bilateral: positive: Normal inspection, EOMI ENT: positive: ENT inspection nml, No signs of dehydration Neck: positive: Nml inspection, No JVD Respiratory: positive: No respiratory distress, Other (R-sided chest tube in place) Cardiovascular: positive: Regular rate & rhythm, No murmur Abdomen: positive: No distention Skin: positive: Warm, Dry Neurologic/Psychiatric: positive: Oriented x3, Motor nml, Sensation nml - LABS Result Diagrams: 10/11/21 04:32 10/11/21 04:32 - DIAGNOSTIC IMAGING Diagnostic Imaging Results: Final report reviewed - FOLLOW UP Follow Up: This will be determined after his stay at [facility]. - TIME SPENT Time Spent in Discharge (Minutes): 46"
== END 2021-10-12 01:40 | disposition short-term general hospital (02) | DRG 186 ==
LOC: EDSEX → EDUNIT# → ED 18:00 → MS3 21:34
PROVIDERS: ADMIT Internal Medicine; ATTEND Internal Medicine
PROC: 0W9900Z Drainage of Right Pleural Cavity with Drainage Device, Open Approach (ICD-10-PCS; principal; 2021-10-01)
DX: J90 Pleural effusion, not elsewhere classified (principal); E43 Unspecified severe protein-calorie malnutrition; E87.1 Hypo-osmolality and hyponatremia; Z68.1 Body mass index [BMI] 19.9 or less, adult; M10.9 Gout, unspecified; I10 Essential (primary) hypertension; F41.9 Anxiety disorder, unspecified; E87.6 Hypokalemia; R94.31 Abnormal electrocardiogram [ECG] [EKG]; Z20.822 Contact with and (suspected) exposure to COVID-19; Z71.3 Dietary counseling and surveillance; Z79.899 Other long term (current) drug therapy; Z80.0 Family history of malignant neoplasm of digestive organs; Z80.2 Family history of malignant neoplasm of other respiratory and intrathoracic organs; Z85.46 Personal history of malignant neoplasm of prostate; Z88.5 Allergy status to narcotic agent; Z92.3 Personal history of irradiation; Z96.659 Presence of unspecified artificial knee joint
CPT/HCPCS: 0202U; 32551; 36415; 71045; 71275; 73562; 73610; 80048; 80053; 80061; 80320; 81001; 81599; 82607; 82746; 83605; 83615; 83690; 83735; 84153; 84154; 84484; 85025; 85610; 85651; 86140; 87040; 87070; 87086; 87205; 89051; 93005; 93306; 96361; 96374; 97110; 97162; 97530; 99152; 99284; 99285; A9270; J1170; J7120; Q9967; 81003; 83721; 94770

== ENCOUNTER 2021-10-30 13:42 | Outpatient (CLI) | payer MEDICARE, MEDICAID | END 2021-10-30 13:43 | disposition critical access hospital (66) | LOC: EMS 13:42 | DX: R33.9 Retention of urine, unspecified (principal); M25.562 Pain in left knee; M25.561 Pain in right knee ==

== ENCOUNTER 2021-11-01 09:58 | Outpatient (CLI) | payer MEDICARE, MEDICAID | END 2021-11-01 09:59 | disposition critical access hospital (66) | LOC: EMS 09:58 | DX: R53.1 Weakness (principal) | CPT/HCPCS: A0425; A0429; A0999 ==

== ENCOUNTER 2021-11-01 10:23 | Emergency (ER) | payer MEDICARE, MEDICAID ==
[2021-11-01] MEDS ORDERED: oxyCODONE 5 MG TABLET PO STA (10:35)
--- NOTE | 2021-11-01 10:39 | ED Physician Documentation ---
History of Present Illness - Stated complaint Stated Complaint: WEAKNESS - Chief complaint Chief Complaint: General - History obtained from History obtained from: Patient, EMS - Additonal information Additional information: 65-year-old gentleman with history of prostate cancer and gout who I put in the hospital on October 01 for a large right-sided pleural effusion. He also had a lot of back and leg pain that was a chronic issue. He was here in the hospital for quite some time but eventually necessitated transfer because of persistent high output of his chest tube for over a week and went to [facility]. He went to [facility] on October 12 and was subsequently released on after I presume a pleurodesis. He went home but has not been eating or drinking very well and has been quite weak. He is unable to walk. He sounds like he was considering or maybe was recommended to go to a SNF after his prolonged hospitalization but refused not really understanding why he might need that. I discussed with him today that it is normal to have severe deconditioning after 2-1/2 weeks in the hospital and that he might need intensive physical therapy. Now he is willing to reconsider. His main complaint is the pain in the legs which looking at the chart is a very chronic issue. Review of Systems Ten Systems: 10 systems reviewed and negative Constitutional: denies: Fever, Chills Nose: denies: Rhinorrhea / runny nose, Congestion Cardiac: denies: Chest pain / pressure, Palpitations Respiratory: denies: Dyspnea, Cough PD PAST MEDICAL HISTORY - Past Medical History Cardiovascular: Hypertension Respiratory: None Neuro: None Endocrine/Autoimmune: None GI: None : None, Other (Prostate cancer) HEENT: None Psych: Anxiety Musculoskeletal: Gout, Chronic back pain Derm: None - Past Surgical History Past Surgical History: Yes Ortho: Knee replacement - Present Medications Home Medications: Ambulatory Orders Medication Instructions Recorded Confirmed allopurinoL [Allopurinol] 100 mg PO DAILY PRN 08/30/14 10/02/21 Ibuprofen [Motrin] 800 mg PO DAILY 10/02/21 10/02/21 LORazepam [Ativan] 0.5 mg PO DAILY PRN 10/02/21 10/02/21 Potassium Chloride [Klor-Con M20] 20 meq PO DAILY 10/02/21 10/02/21 - Allergies Allergies/Adverse Reactions: Allergies Allergy/AdvReac Type Severity Reaction Status Date / Time codeine AdvReac Severe Emesis Verified 10/01/21 18:19 - Social History Does the pt smoke?: No Smoking Status: Never smoker Does the pt drink ETOH?: Yes Does the pt have substance abuse?: Yes - Immunizations Immunizations are current?: Yes - POLST Patient has POLST: No PD ED PE NORMAL - Vitals Vital signs reviewed: Yes - General General: Alert and oriented X 3, No acute distress - HEENT HEENT: PERRL, EOMI - Neck Neck: Supple, no meningeal sign, No bony TTP - Cardiac Cardiac: RRR, No murmur - Respiratory Respiratory: No respiratory distress, Clear bilaterally - Abdomen Abdomen: Normal bowel sounds, Soft, Non tender - Back Back: No CVA TTP, No spinal TTP - Derm Derm: Normal color, Warm and dry - Extremities Extremities: Other (A Lot of pain with ROM at ankles and knees) - Neuro Neuro: Alert and oriented X 3, Normal speech Results - Vitals Vitals: Vital Signs - 24 hr 11/01/21 11/01/21 11/01/21 10:27 12:00 15:01 Temperature 36.9 C Heart Rate 91 94 Heart Rate [ 99 Sitting] Heart Rate [ 99 Supine] Respiratory 16 16 Rate Blood Pressure 130/79 114/67 Blood Pressure 122/84 H [Sitting] Blood Pressure 109/65 [Supine] O2 Saturation 98 100 O2 Saturation [ 99 With Activity] O2 Saturation [ 94 Without Activity] 11/01/21 11/01/21 18:37 20:00 Temperature Heart Rate 106 H 105 H Heart Rate [ Sitting] Heart Rate [ Supine] Respiratory 14 16 Rate Blood Pressure 116/72 121/75 Blood Pressure [Sitting] Blood Pressure [Supine] O2 Saturation 96 96 O2 Saturation [ With Activity] O2 Saturation [ Without Activity] Oxygen O2 Source [With Activity] Room air O2 Source [Without Activity] Room air O2 Source Room air - EKG (time done) 1059 Rate: Rate (enter#) (92) Rhythm: NSR [place]: Normal Intervals: Normal MN QRS: Normal Ischemia: Q waves (inferior/anterior). No: ST elevation c/w ischemia, ST depression - Labs Labs: Laboratory Tests 11/01/21 11/01/21 10:41 10:41 WBC 7.8 RBC 3.18 L Hgb 11.5 L Hct 34.1 L MCV 107.2 H MCH 36.2 H MCHC 33.7 RDW 13.3 Plt Count 302 MPV 9.0 Neut # (Auto) 5.6 Lymph # (Auto) 1.0 L [place] # (Auto) 0.9 Eos # (Auto) 0.3 Baso # (Auto) 0.0 Absolute Nucleated RBC 0.00 Nucleated RBC % 0.0 Sodium 132 L Potassium 4.0 Chloride 91 L Carbon Dioxide 29 Anion Gap 12.0 BUN 32 H Creatinine 1.1 Estimated GFR (MDRD) 67 L Glucose 117 H Calcium 9.4 Magnesium 1.9 Total Bilirubin 0.7 AST 22 ALT 11 Alkaline Phosphatase 82 Total Protein 7.7 Albumin 2.6 L Globulin 5.1 H Albumin/Globulin Ratio 0.5 L - Rads (name of study) cxr Radiology: EMP read contemporaneously (Showing hazy right medial basilar opacity. Discussed with radiologist. This could be consistent with effusion after pleurodesis, he does not really have any pulmonary symptoms or elevated white count so I doubt is a pneumonia.) PD MEDICAL DECISION MAKING - ED course ED course: 65yo male who was hospitalized for about 3 weeks with chest tube for much of it. Was discharged from [facility] and he admits that SNF was recommended. He admits to refusing that advice, now deconditioned from his hospitlalization. He is mildly dehydrated and given IVF. No criteria for readmission on workup. 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 Care to oncoming ED MD at shift change. Departure - Departure Clinical Impression: Protein-calorie malnutrition, severe, Prostate cancer, Weakness Condition: Good Record reviewed to determine appropriate education?: Yes
[2021-11-01 10:44] LABS: BASOPHILS % (AUTO) 0.4 %; EOSINOPHILS # (AUTO) 0.3 10^3/uL (0.0-0.7); EOSINOPHILS % (AUTO) 3.6 %; HCT - HEMATOCRIT 34.1 % (42.0-52.0); HGB - HEMOGLOBIN 11.5 g/dL (14.0-18.0); LYMPHOCYTES % (AUTO) 12.9 %; MEAN CORPUSCULAR HEMOGLOBIN 36.2 pg (27.0-31.0); MEAN CORPUSCULAR HGB CONC 33.7 g/dL (32.0-36.0); MEAN CORPUSCULAR VOLUME 107.2 fL (80.0-94.0); MONOCYTES # (AUTO) 0.9 10^3/uL (0.0-1.0); MONOCYTES % (AUTO) 11.5 %; NEUTROPHILS # (AUTO) 5.6 10^3/uL (1.5-6.6); NEUTROPHILS % (AUTO) 71.1 %; PLT - PLATELET COUNT 302 10^3/uL (130-450); RED BLOOD COUNT 3.18 10^6/uL (4.70-6.10); RED CELL DISTRIBUTION WIDTH 13.3 % (12.0-15.0); WHITE BLOOD COUNT 7.8 x10^3/uL (4.8-10.8)
[2021-11-01 10:58] LABS: ALBUMIN 2.6 g/dL (3.2-5.5); ALBUMIN/GLOBULIN RATIO 0.5 (1.0-2.2); BILIRUBIN,TOTAL 0.7 mg/dL (0.2-1.0); CALCIUM 9.4 mg/dL (8.5-10.3); CREATININE 1.1 mg/dL (0.6-1.2); MAGNESIUM 1.9 mg/dL (1.7-2.8); TOTAL PROTEIN 7.7 g/dL (6.7-8.2)
--- NOTE | 2021-11-01 12:49 | XRAY Report ---
PROCEDURE: Chest 1 View X-Ray INDICATIONS: hx pleural effusion TECHNIQUE: One view of the chest was acquired. COMPARISON: Chest x-ray 10/10/2021 FINDINGS: Surgical changes and devices: None. Lungs and pleura: There is been interval development of hazy medial right basilar opacity. Mediastinum: Mediastinal contours appear normal. Heart size is normal. Bones and chest wall: No suspicious bony lesions. Overlying soft tissues appear unremarkable. IMPRESSION: Hazy right medial basilar opacity new compared to prior exam. This could represent developing airspac e disease such as pneumonia. Area of superimposed effusion cannot be excluded, although there is no a ppreciable costophrenic angle blunting. Reviewed by: Zuly Cali MD on 11/01/2021 12:48 PM PST Approved by: Zuly Cali MD on 11/01/2021 12:48 PM PST Station ID: [id number]
[2021-11-01] MEDS ORDERED: SODIUM CHLORIDE 0.9% 1,000 ML IV STA ×2 (16:00)
[2021-11-02] MEDS: oxyCODONE 5 MG TABLET PO PRN ×4 (00:38→22:23)
[2021-11-02] MEDS ORDERED: DEXTROSE 5%-0.45% NACL 1,000 ML IV STA (06:38)
--- NOTE | 2021-11-02 06:39 | ED Physician Documentation ---
ED Addendum - Addendum Addendum: 11/02/21 06:38 Patient endorsed to me by Dr. Bernal awaiting placement by [facility]. to be endorsed to incoming emergency MD for KEVIN vazquez in AM.
[2021-11-02] MEDS: TAMSULOSIN 0.4 MG CAPSULE PO SCH (09:58)
[2021-11-02] MEDS: ASPIRIN EC 81 MG TABLET PO SCH (09:58)
[2021-11-02] MEDS: THIAMINE 100 MG TABLET PO SCH (09:58)
[2021-11-02] MEDS: PRENATAL VITAMIN TABLET PO SCH (09:58)
[2021-11-02] MEDS: allopurinoL 100 MG TABLET PO SCH (09:59)
[2021-11-02] MEDS: IBUPROFEN 600 MG TABLET PO PRN (18:48)
--- NOTE | 2021-11-02 19:39 | ED Physician Documentation ---
ED Addendum - Addendum Addendum: 11/02/21 19:37 I spoke with the patient's , who communicated that she had begun the process of setting the patient up with hospice. She has already talked to them and is In the process of arranging for the patient to be evaluated. She states that since extensive efforts have not resulted in anywhere for the patient to go, and since the patient was not thrilled about the idea of staying somewhere else anyway, and would prefer to be home, she would like to try to arrange to bring him home. She states she will not be ready today but is hoping to bring him home as soon as possible. We will put a hospice consult in here to help further the process of getting the patient home care that he would like. In the meantime, social work may continue to attempt to find a place for the patient to go if he does decide that he would like to go forward with this.
[2021-11-03] MEDS: oxyCODONE 5 MG TABLET PO PRN ×3 (04:23→20:32)
[2021-11-03] MEDS: IBUPROFEN 600 MG TABLET PO PRN ×3 (04:32→20:32)
[2021-11-03] MEDS ORDERED: MORPHINE 2 MG/ML CARPUJECT IVP STA (04:37)
[2021-11-03] MEDS: THIAMINE 100 MG TABLET PO SCH (08:20)
[2021-11-03] MEDS: allopurinoL 100 MG TABLET PO SCH (08:20)
[2021-11-03] MEDS: PRENATAL VITAMIN TABLET PO SCH (08:20)
[2021-11-03] MEDS: ASPIRIN EC 81 MG TABLET PO SCH (08:20)
[2021-11-03] MEDS: TAMSULOSIN 0.4 MG CAPSULE PO SCH (08:20)
[2021-11-03 15:07] LABS: ALBUMIN 2.4 g/dL (3.2-5.5); ALBUMIN/GLOBULIN RATIO 0.5 (1.0-2.2); BILIRUBIN,TOTAL 0.7 mg/dL (0.2-1.0); CALCIUM 8.8 mg/dL (8.5-10.3); CREATININE 0.6 mg/dL (0.6-1.2); MAGNESIUM 1.4 mg/dL (1.7-2.8); PHOSPHORUS 3.8 mg/dL (2.5-4.6); POTASSIUM 3.5 mmol/L (3.5-5.0); TOTAL PROTEIN 7.2 g/dL (6.7-8.2)
--- NOTE | 2021-11-03 16:54 | ED Physician Documentation ---
ED Addendum - Addendum Addendum: 11/03/21 16:52Patient remains in the ER. He was able to eat okay and states he had had a good breakfast when I saw him this morning. He does offer the feeling of general weakness. He denies any bedsores or focal areas of pain. Social work talked with him and his a few times today. Dr. Sorto for hospice medical lab director came and talked with the patient as well as his . Refer to his consult note. At this point the patient does not meet hospice criteria. He could be a candidate for palliative care but Dr. Sorto states it would be a few weeks for them to be excepting him on the service. Meanwhile there are still the issue of deconditioning and general weakness. The patient's is looking at [facility] and was able to get a lift chair. She is feeling overwhelmed and is not quite sure about being able to get him home just yet. Social work is still attempting placement at [facility] for [facility]. The patient at this point is still remaining in the ER pending of safe placement and appropriate disposition.
[2021-11-04] MEDS: oxyCODONE 5 MG TABLET PO PRN ×2 (03:07→18:16)
[2021-11-04] MEDS: IBUPROFEN 600 MG TABLET PO PRN ×2 (03:07→13:18)
[2021-11-04] MEDS: allopurinoL 100 MG TABLET PO SCH (10:42)
[2021-11-04] MEDS: PRENATAL VITAMIN TABLET PO SCH (10:42)
[2021-11-04] MEDS: THIAMINE 100 MG TABLET PO SCH (10:43)
[2021-11-04] MEDS: ASPIRIN EC 81 MG TABLET PO SCH (10:43)
[2021-11-04] MEDS: TAMSULOSIN 0.4 MG CAPSULE PO SCH (10:43)
[2021-11-05] MEDS: IBUPROFEN 600 MG TABLET PO PRN ×2 (04:32→14:54)
[2021-11-05] MEDS: oxyCODONE 5 MG TABLET PO PRN ×3 (04:32→20:44)
[2021-11-05] MEDS: allopurinoL 100 MG TABLET PO SCH (08:10)
[2021-11-05] MEDS: PRENATAL VITAMIN TABLET PO SCH (08:10)
[2021-11-05] MEDS: TAMSULOSIN 0.4 MG CAPSULE PO SCH (08:11)
[2021-11-05] MEDS: ASPIRIN EC 81 MG TABLET PO SCH (08:11)
[2021-11-05] MEDS: THIAMINE 100 MG TABLET PO SCH (08:11)
[2021-11-06] MEDS: PRENATAL VITAMIN TABLET PO SCH (08:22)
[2021-11-06] MEDS: allopurinoL 100 MG TABLET PO SCH (08:22)
[2021-11-06] MEDS: TAMSULOSIN 0.4 MG CAPSULE PO SCH (08:22)
[2021-11-06] MEDS: ASPIRIN EC 81 MG TABLET PO SCH (08:22)
[2021-11-06] MEDS: THIAMINE 100 MG TABLET PO SCH (08:23)
[2021-11-07] MEDS: ASPIRIN EC 81 MG TABLET PO SCH (09:01)
[2021-11-07] MEDS: TAMSULOSIN 0.4 MG CAPSULE PO SCH (09:01)
[2021-11-07] MEDS: PRENATAL VITAMIN TABLET PO SCH (09:01)
[2021-11-07] MEDS: THIAMINE 100 MG TABLET PO SCH (09:01)
[2021-11-07] MEDS: allopurinoL 100 MG TABLET PO SCH (09:01)
[2021-11-07] MEDS: oxyCODONE 5 MG TABLET PO PRN (17:53)
[2021-11-08] MEDS: allopurinoL 100 MG TABLET PO SCH (09:29)
[2021-11-08] MEDS: PRENATAL VITAMIN TABLET PO SCH (09:29)
[2021-11-08] MEDS: ASPIRIN EC 81 MG TABLET PO SCH (09:29)
[2021-11-08] MEDS: THIAMINE 100 MG TABLET PO SCH (09:29)
[2021-11-08] MEDS: TAMSULOSIN 0.4 MG CAPSULE PO SCH (09:29)
[2021-11-08] MEDS: oxyCODONE 5 MG TABLET PO PRN (09:40)
[2021-11-09] MEDS: oxyCODONE 5 MG TABLET PO PRN (00:11)
[2021-11-09] MEDS: TAMSULOSIN 0.4 MG CAPSULE PO SCH (08:43)
[2021-11-09] MEDS: THIAMINE 100 MG TABLET PO SCH (08:43)
[2021-11-09] MEDS: PRENATAL VITAMIN TABLET PO SCH (08:43)
[2021-11-09] MEDS: allopurinoL 100 MG TABLET PO SCH (08:43)
[2021-11-09] MEDS: ASPIRIN EC 81 MG TABLET PO SCH (08:43)
[2021-11-10] MEDS: ASPIRIN EC 81 MG TABLET PO SCH (10:29)
[2021-11-10] MEDS: allopurinoL 100 MG TABLET PO SCH (10:29)
[2021-11-10] MEDS: PRENATAL VITAMIN TABLET PO SCH (10:29)
[2021-11-10] MEDS: TAMSULOSIN 0.4 MG CAPSULE PO SCH (10:30)
[2021-11-10] MEDS: THIAMINE 100 MG TABLET PO SCH (10:30)
--- NOTE | 2021-11-10 10:34 | ED Physician Documentation ---
ED Addendum - Addendum Addendum: 11/10/21 10:33 Patient continues to board in the emergency department. He has no complaints today. Physical therapy has seen the patient and is recommending long-term facility placement. Patient appears severely deconditioned. The last physical therapy evaluation was a few days ago. Patient is well-appearing, nontoxic. Afebrile. Eating and drinking without difficulty. He is cachectic. We will continue to search for placement with social work. This document was made in part using voice recognition software. While efforts are made to proofread this document, sound alike and grammatical errors may occur.
[2021-11-10 11:21] LABS: BASOPHILS % (AUTO) 0.4 %; EOSINOPHILS # (AUTO) 0.1 10^3/uL (0.0-0.7); EOSINOPHILS % (AUTO) 0.7 %; HCT - HEMATOCRIT 31.1 % (42.0-52.0); HGB - HEMOGLOBIN 10.6 g/dL (14.0-18.0); LYMPHOCYTES # (AUTO) 1.5 10^3/uL (1.5-3.5); LYMPHOCYTES % (AUTO) 15.5 %; MEAN CORPUSCULAR HEMOGLOBIN 35.8 pg (27.0-31.0); MEAN CORPUSCULAR HGB CONC 34.1 g/dL (32.0-36.0); MEAN CORPUSCULAR VOLUME 105.1 fL (80.0-94.0); MEAN PLATELET VOLUME 9.4 fL (7.4-11.4); MONOCYTES # (AUTO) 1.1 10^3/uL (0.0-1.0); MONOCYTES % (AUTO) 11.5 %; NEUTROPHILS # (AUTO) 6.8 10^3/uL (1.5-6.6); NEUTROPHILS % (AUTO) 71.6 %; PLT - PLATELET COUNT 291 10^3/uL (130-450); RED BLOOD COUNT 2.96 10^6/uL (4.70-6.10); WHITE BLOOD COUNT 9.4 x10^3/uL (4.8-10.8)
[2021-11-10 11:30] LABS: CREATININE 0.4 mg/dL (0.6-1.2); POTASSIUM 4.2 mmol/L (3.5-5.0)
--- NOTE | 2021-11-10 14:18 | ED Physician Documentation ---
ED Addendum - Addendum Addendum: 11/10/21 14:17 Patient is excepted to [facility] tomorrow. No significant lab abnormalities to date. Patient will continue to board in the emergency department. Results - Vitals Vitals: Vital Signs - 24 hr 11/09/21 11/09/21 11/10/21 16:40 22:00 08:05 Temperature 37.2 C 37.1 C 36.4 C L Heart Rate 96 90 105 H Respiratory 18 12 Rate Blood Pressure 135/64 H 138/67 H 152/82 H O2 Saturation 94 97 100 Oxygen O2 Source [] Room air O2 Source [] Room air O2 Source Room air - Labs Labs: Laboratory Tests 11/01/21 11/01/21 11/03/21 10:41 10:41 14:48 WBC 7.8 RBC 3.18 L Hgb 11.5 L Hct 34.1 L MCV 107.2 H MCH 36.2 H MCHC 33.7 RDW 13.3 Plt Count 302 MPV 9.0 Neut # (Auto) 5.6 Lymph # (Auto) 1.0 L Scott # (Auto) 0.9 Eos # (Auto) 0.3 Baso # (Auto) 0.0 Absolute Nucleated RBC 0.00 Nucleated RBC % 0.0 Sodium 132 L 129 L Potassium 4.0 3.5 Chloride 91 L 94 L Carbon Dioxide 29 24 Anion Gap 12.0 11.0 BUN 32 H 10 Creatinine 1.1 0.6 Estimated GFR (MDRD) 67 L 136 Glucose 117 H 119 H Calcium 9.4 8.8 Phosphorus 3.8 Magnesium 1.9 1.4 L Total Bilirubin 0.7 0.7 AST 22 28 ALT 11 11 Alkaline Phosphatase 82 85 Ammonia Total Protein 7.7 7.2 Albumin 2.6 L 2.4 L Globulin 5.1 H 4.8 H Albumin/Globulin Ratio 0.5 L 0.5 L Lipase 29 11/03/21 11/10/21 11/10/21 14:48 11:15 11:15 WBC 9.4 RBC 2.96 L Hgb 10.6 L Hct 31.1 L MCV 105.1 H MCH 35.8 H MCHC 34.1 RDW 13.0 Plt Count 291 MPV 9.4 Neut # (Auto) 6.8 H Lymph # (Auto) 1.5 Scott # (Auto) 1.1 H Eos # (Auto) 0.1 Baso # (Auto) 0.0 Absolute Nucleated RBC 0.00 Nucleated RBC % 0.0 Sodium 133 L Potassium 4.2 Chloride 98 L Carbon Dioxide 25 Anion Gap 10.0 BUN 6 Creatinine 0.4 L Estimated GFR (MDRD) 216 Glucose 116 H Calcium 9.0 Phosphorus Magnesium Total Bilirubin AST ALT Alkaline Phosphatase Ammonia 17.9 Total Protein Albumin Globulin Albumin/Globulin Ratio Lipase
[2021-11-10 17:25] LABS: CORONAVIRUS 229E-RESP PCR NOT DETECTED; CORONAVIRUS HKU1-RESP PCR NOT DETECTED; CORONAVIRUS NL63-RESP PCR NOT DETECTED; CORONAVIRUS OC43-RESP PCR NOT DETECTED; HUMAN METAPNEUMOVIRUS NOT DETECTED; INFLUENZA A- RESP PCR PANEL NOT DETECTED; RHINOVIRUS/ENTEROVIRUS NOT DETECTED; SARS-CoV-2 -RESP PCR PANEL NOT DETECTED
[2021-11-10 17:26] LABS: B. PARAPERTUSSIS- RESP PCR PAN NOT DETECTED; B. PERTUSSIS- RESP PCR PANEL NOT DETECTED; C. PNEUMONIAE- RESP PCR PANEL NOT DETECTED; INFLUENZA B - RESP PCR PANEL NOT DETECTED; M. PNEUMONIAE- RESP PCR PANEL NOT DETECTED; PARAINFLUENZA VIRUS 1 NOT DETECTED; PARAINFLUENZA VIRUS 2 NOT DETECTED; PARAINFLUENZA VIRUS 3 NOT DETECTED; PARAINFLUENZA VIRUS 4 NOT DETECTED; RSV- RESP PCR PANEL NOT DETECTED
[2021-11-10] MEDS: oxyCODONE 5 MG TABLET PO PRN (22:05)
[2021-11-11] MEDS: oxyCODONE 5 MG TABLET PO PRN ×2 (05:43→11:30)
[2021-11-11 06:04] VITALS: BP 131/69
--- NOTE | 2021-11-11 10:22 | ED Physician Documentation ---
ED Addendum - Addendum Addendum: 11/11/21 10:21The patient had been slated for transfer/discharge and going to snf facility. That is still taking place. The patient is without any complaints this morning. His ride is here to pick him up and bring him they are. At this point he is discharged from the ER Disposition: Discharged from the ER in stable condition Dispo diagnoses: 1. General weakness 2. Nutritional malnutrition
[2021-11-11] MEDS: PRENATAL VITAMIN TABLET PO SCH (11:30)
[2021-11-11] MEDS: THIAMINE 100 MG TABLET PO SCH (11:30)
[2021-11-11] MEDS: ASPIRIN EC 81 MG TABLET PO SCH (11:30)
[2021-11-11] MEDS: TAMSULOSIN 0.4 MG CAPSULE PO SCH (11:30)
[2021-11-11] MEDS: allopurinoL 100 MG TABLET PO SCH (11:30)
== END 2021-11-11 12:22 | disposition home or self-care (01) ==
LOC: EDUNIT# → ED 10:23
DX: R53.1 Weakness (principal); E43 Unspecified severe protein-calorie malnutrition; Z76.4 Other boarder to healthcare facility; Z72.3 Lack of physical exercise; C61 Malignant neoplasm of prostate; Z20.822 Contact with and (suspected) exposure to COVID-19
CPT/HCPCS: 36415; 71045; 80048; 80053; 82140; 83690; 83735; 84100; 85025; 87631; 93005; 96361; 96374; 99283; 99284; A9270; 0202U

== ENCOUNTER 2022-01-29 09:56 | Outpatient (CLI) | payer MEDICARE, MEDICAID ==
[2022-01-29 14:49] LABS: BASOPHILS % (AUTO) 0.1 %; HCT - HEMATOCRIT 34.3 % (42.0-52.0); HGB - HEMOGLOBIN 11.5 g/dL (14.0-18.0); LYMPHOCYTES # (AUTO) 1.3 10^3/uL (1.5-3.5); LYMPHOCYTES % (AUTO) 15.9 %; MEAN CORPUSCULAR HEMOGLOBIN 34.1 pg (27.0-31.0); MEAN CORPUSCULAR HGB CONC 33.5 g/dL (32.0-36.0); MEAN CORPUSCULAR VOLUME 101.8 fL (80.0-94.0); MEAN PLATELET VOLUME 10.8 fL (7.4-11.4); MONOCYTES # (AUTO) 0.7 10^3/uL (0.0-1.0); MONOCYTES % (AUTO) 8.4 %; NEUTROPHILS # (AUTO) 6.3 10^3/uL (1.5-6.6); NEUTROPHILS % (AUTO) 75.1 %; PLT - PLATELET COUNT 181 10^3/uL (130-450); RED BLOOD COUNT 3.37 10^6/uL (4.70-6.10); RED CELL DISTRIBUTION WIDTH 14.5 % (12.0-15.0); WHITE BLOOD COUNT 8.4 x10^3/uL (4.8-10.8)
[2022-01-29 15:04] LABS: ALBUMIN 3.7 g/dL (3.2-5.5); ALBUMIN/GLOBULIN RATIO 0.8 (1.0-2.2); BILIRUBIN,TOTAL 0.9 mg/dL (0.2-1.0); CALCIUM 9.3 mg/dL (8.5-10.3); CREATININE 0.8 mg/dL (0.6-1.2); POTASSIUM 3.4 mmol/L (3.5-5.0); TOTAL PROTEIN 8.2 g/dL (6.7-8.2)
== END 2022-01-29 09:57 | disposition home or self-care (01) ==
LOC: LAB.S 09:56
PROVIDERS: ATTEND Internal Medicine
DX: K70.30 Alcoholic cirrhosis of liver without ascites (principal); E51.9 Thiamine deficiency, unspecified
CPT/HCPCS: 36415; 80053; 84425; 85025

== ENCOUNTER 2022-02-19 13:55 | Outpatient (CLI) | payer MEDICARE, MEDICAID | END 2022-02-19 13:56 | disposition home or self-care (01) | LOC: LAB.S 13:55 | PROVIDERS: ATTEND Specialist | DX: C61 Malignant neoplasm of prostate (principal) | CPT/HCPCS: 36415; 84153 ==

== ENCOUNTER 2022-05-17 11:32 | Outpatient (CLI) | payer MEDICARE, MEDICAID ==
[2022-05-17 15:10] LABS: BASOPHILS # (AUTO) 0.1 10^3/uL (0.0-0.1); BASOPHILS % (AUTO) 0.8 %; EOSINOPHILS # (AUTO) 0.4 10^3/uL (0.0-0.7); EOSINOPHILS % (AUTO) 5.9 %; HCT - HEMATOCRIT 39.9 % (42.0-52.0); HGB - HEMOGLOBIN 13.2 g/dL (14.0-18.0); LYMPHOCYTES # (AUTO) 1.8 10^3/uL (1.5-3.5); LYMPHOCYTES % (AUTO) 28.7 %; MEAN CORPUSCULAR HEMOGLOBIN 33.2 pg (27.0-31.0); MEAN CORPUSCULAR HGB CONC 33.1 g/dL (32.0-36.0); MEAN CORPUSCULAR VOLUME 100.3 fL (80.0-94.0); MEAN PLATELET VOLUME 10.6 fL (7.4-11.4); MONOCYTES # (AUTO) 0.9 10^3/uL (0.0-1.0); MONOCYTES % (AUTO) 13.7 %; NEUTROPHILS # (AUTO) 3.3 10^3/uL (1.5-6.6); NEUTROPHILS % (AUTO) 50.7 %; PLT - PLATELET COUNT 171 10^3/uL (130-450); RED BLOOD COUNT 3.98 10^6/uL (4.70-6.10); RED CELL DISTRIBUTION WIDTH 13.5 % (12.0-15.0); WHITE BLOOD COUNT 6.4 x10^3/uL (4.8-10.8)
[2022-05-17 15:21] LABS: ALBUMIN 3.7 g/dL (3.2-5.5); ALBUMIN/GLOBULIN RATIO 0.9 (1.0-2.2); BILIRUBIN,TOTAL 0.6 mg/dL (0.2-1.0); CALCIUM 9.7 mg/dL (8.5-10.3); CREATININE 0.9 mg/dL (0.6-1.2); POTASSIUM 4.2 mmol/L (3.5-5.0); TOTAL PROTEIN 7.8 g/dL (6.7-8.2)
[2022-05-17 15:35] LABS: THYROID STIMULATING HORMONE 1.12 uIU/mL (0.34-5.60)
[2022-05-17 21:18] LABS: ESTIMATED AVERAGE GLUCOSE 103 mg/dL (70-100); HEMOGLOBIN A1c% 5.2 % (4.27-6.07)
== END 2022-05-17 11:33 | disposition home or self-care (01) ==
LOC: LAB.S 11:32
PROVIDERS: ATTEND Internal Medicine
DX: R73.02 Impaired glucose tolerance (oral) (principal); K70.30 Alcoholic cirrhosis of liver without ascites; I48.91 Unspecified atrial fibrillation
CPT/HCPCS: 36415; 80053; 83036; 84443; 85025

== ENCOUNTER 2022-09-27 13:22 | Outpatient (CLI) | payer MEDICARE, MEDICAID | END 2022-09-27 13:23 | disposition home or self-care (01) | LOC: LAB.S 13:22 | PROVIDERS: ATTEND Specialist | DX: C61 Malignant neoplasm of prostate (principal) | CPT/HCPCS: 36415; 84153 ==

== ENCOUNTER 2022-10-02 10:49 | Outpatient (CLI) | payer MEDICARE, MEDICAID ==
--- NOTE | 2022-10-02 16:09 | XRAY Report ---
PROCEDURE: Knee 3 View BILAT INDICATIONS: KNEE JOINT PAIN >3 MONTHS,BILATERAL TECHNIQUE: 2 views of the right and left knee(s) were acquired. COMPARISON: None. FINDINGS: Bones: No fractures or dislocations. Mildly decreased medial and lateral compartment joint space lo ss bilaterally.. Enthesopathy at the patellar tendon origin and insertion in the left knee. No suspic ious bony lesions. Soft tissues: Small left and trace right joint effusion. No suspicious soft tissue calcifications. IMPRESSION: 1. Mild, bilateral, symmetric degenerative change. Reviewed by: Ashlyn Wallace MD on 10/02/2022 4:07 PM PST Approved by: Ashlyn Wallace MD on 10/02/2022 4:07 PM PST Station ID: [id number]
--- NOTE | 2022-10-03 08:41 | XRAY Report ---
PROCEDURE: Cervical Spine Comp w/Flex/Ext INDICATIONS: Left arm pain TECHNIQUE: 7 views of the cervical spine were acquired. COMPARISON: None. FINDINGS: Degenerative straightening of the usual cervical lordosis. No listhesis. Alignment is unchanged with flexion and extension. Oblique views demonstrate moderate right neural foraminal narrowing at C3-C4, C4-C5, C5-C6 with mild neural foraminal narrowing on the left C3-C4, C4-C5, and C5-C6. Disc height lo ss at every level in the cervical spine except C2-C3, with associated degenerative endplate changes, facet hypertrophy, uncovertebral spurring. Prevertebral soft tissues normal in thickness. No suspicio us lytic or blastic osseous lesion. IMPRESSION: Mild to moderate mid cervical degenerative change. Reviewed by: Marin Brothers MD on 10/03/2022 8:40 AM PST Approved by: Marin Brothers MD on 10/03/2022 8:40 AM PST Station ID: [id number]
== END 2022-10-02 10:50 | disposition home or self-care (01) ==
LOC: DI.S 10:49
PROVIDERS: ATTEND Registered Nurse
DX: M47.812 Spondylosis without myelopathy or radiculopathy, cervical region (principal); M50.31 Other cervical disc degeneration, high cervical region; M17.0 Bilateral primary osteoarthritis of knee; M25.461 Effusion, right knee; M25.462 Effusion, left knee

== ENCOUNTER 2022-12-03 12:53 | Outpatient (CLI) | payer MEDICAID, MEDICARE ==
--- NOTE | 2022-12-03 20:21 | XRAY Report ---
PROCEDURE: Hand 3 View LT INDICATIONS: ADHESION OF TENDON OF HAND, LEFT TECHNIQUE: 3 views of the hand(s) acquired. COMPARISON: None FINDINGS: Bones: No acute fractures or dislocations. Minimal-mild periarticular degenerative changes scatte red about the hand. There are also periarticular lucencies indeterminate for subchondral cystic harris e or erosions. Soft tissues: Vascular calcifications are present. IMPRESSION: No acute osseous abnormality. If symptoms persist, follow-up radiographs and/or CT or MRI may be help ful for further evaluation. Reviewed by: Aris Hansen MD on 12/03/2022 8:19 PM PST Approved by: Aris Hansen MD on 12/03/2022 8:19 PM [facility] Station ID: [id number]
== END 2022-12-03 12:54 | disposition home or self-care (01) ==
LOC: DI 12:53
PROVIDERS: ATTEND Orthopaedic Surgery
DX: M67.844 Other specified disorders of tendon, left hand (principal)

== ENCOUNTER 2023-04-25 17:48 | Outpatient (CLI) | payer MEDICARE | END 2023-04-25 23:59 | disposition EMS.NT | LOC: EMS 17:48 | DX: M54.9 Dorsalgia, unspecified (principal); S20.311A Abrasion of right front wall of thorax, initial encounter; S30.811A Abrasion of abdominal wall, initial encounter; W17.89XA Other fall from one level to another, initial encounter; Y92.008 Other place in unspecified non-institutional (private) residence as the place of occurrence of the external cause ==

== ENCOUNTER 2023-09-03 09:10 | Outpatient (CLI) | payer MEDICARE ==
[2023-09-03 14:42] LABS: BASOPHILS % (AUTO) 0.4 %; EOSINOPHILS # (AUTO) 0.2 10^3/uL (0.0-0.7); EOSINOPHILS % (AUTO) 2.5 %; HCT - HEMATOCRIT 43.7 % (42.0-52.0); HGB - HEMOGLOBIN 14.4 g/dL (14.0-18.0); LYMPHOCYTES # (AUTO) 3.5 10^3/uL (1.5-3.5); LYMPHOCYTES % (AUTO) 36.4 %; MEAN CORPUSCULAR HEMOGLOBIN 34.7 pg (27.0-31.0); MEAN CORPUSCULAR VOLUME 105.3 fL (80.0-94.0); MEAN PLATELET VOLUME 11.6 fL (7.4-11.4); MONOCYTES # (AUTO) 1.2 10^3/uL (0.0-1.0); NEUTROPHILS # (AUTO) 4.7 10^3/uL (1.5-6.6); NEUTROPHILS % (AUTO) 48.4 %; PLT - PLATELET COUNT 261 10^3/uL (130-450); RED BLOOD COUNT 4.15 10^6/uL (4.70-6.10); RED CELL DISTRIBUTION WIDTH 13.2 % (12.0-15.0); WHITE BLOOD COUNT 9.7 x10^3/uL (4.8-10.8)
[2023-09-03 16:05] LABS: ALBUMIN 4.3 g/dL (3.2-5.5); ALKALINE PHOSPHATASE 75 IU/L (42-121); ALT ALANINE AMINOTRANSFERASE 16 IU/L (10-60); AST ASPARTATE AMINOTRANSFERASE 27 IU/L (10-42); BILIRUBIN,TOTAL 0.7 mg/dL (0.2-1.0); BUN - BLOOD UREA NITROGEN 15 mg/dL (6-20); CALCIUM 9.5 mg/dL (8.5-10.3); CARBON DIOXIDE - CO2 27 mmol/L (21-32); CHLORIDE 99 mmol/L (101-111); CHOL/HDL RATIO 2.9 (<5.0); CHOLESTEROL 147 mg/dL; GFR - MDRD 75 (>89); GLUCOSE 102 mg/dL (74-104); HDL CHOLESTEROL 51 mg/dL; LDL CHOLESTEROL,CALCULATED 74 mg/dL; LDL/HDL RATIO 1.5 (<3.6); SODIUM 134 mmol/L (135-145); TOTAL PROTEIN 8.4 g/dL (6.4-8.9); TRIGLYCERIDES 112 mg/dL (48-352); VLDL CHOLESTEROL 22 mg/dL
== END 2023-09-03 09:11 | disposition home or self-care (01) ==
LOC: LAB.S 09:10
PROVIDERS: ATTEND Registered Nurse
DX: C61 Malignant neoplasm of prostate (principal); Z79.899 Other long term (current) drug therapy; Z13.220 Encounter for screening for lipoid disorders
CPT/HCPCS: 36415; 80053; 80061; 83721; 84153; 85025